=== PATIENT | male | born 1955 | race Caucasian/White ===

== ENCOUNTER 2016-08-18 00:45 | Emergency (ER) | payer BC ==
[~2016-08-18] VITALS: Ht 167.6 cm; Wt 77.0 kg
[~2016-08-18 00:45] MED LIST: ADAL1INJ IM; HYDR-3533 PO; METH750T2 PO
[2016-08-18 01:21] VITALS: BP 160/104; PULSE 80; RESP 18; TEMP 98.4; O2SAT 100
[2016-08-18] MEDS ORDERED: MILL5TAB PO (02:02)
[2016-08-18] MEDS ORDERED: ASAC800T PO (02:02)
[2016-08-18] MEDS ORDERED: HUMI40KI SQ (02:02)
[2016-08-18] MEDS ORDERED: ZYRT10CA PO (02:02)
[2016-08-18] MEDS ORDERED: BENA25TA3 PO (02:02)
[2016-08-18] MEDS ORDERED: LIDOCAINE 1%/EPINEPHrine 1:100,000 SOLN 20 ML VIAL INFIL ONE (02:15)
[2016-08-18] MEDS ORDERED: TETANUS/DIPHTHERIA TOXOID ADULT 0.5 ML VIAL IM ONE (02:15)
--- NOTE | 2016-08-18 02:41 | PD ---
HPI Chief Complaint: Fall Time Seen by Provider: 02:11 Travel History International Travel<30 days: No Contact w/Intl Traveler<30days: No Traveled to known affect area: No History of Present Illness HPI The patient is a [id number] male that fell at approximately 11 PM tonight in the shower and hit his head. He said he hit very hard and he was nauseated for a while after the injury. This was a lose balance and fall in the shower, not a syncopal spell. He did not lose consciousness. He sustained a laceration to the eyebrow. He denies any headache but may be slightly nauseated still. His last tetanus shot was over 10 years ago. PFSH Past Medical History Hx Anticoagulant Therapy: No Gastrointestinal Disorders: Yes (ULCERATIVE COLITIS) Tetanus Vaccination: > 5 Years Past Surgical History Cholecystectomy: Yes Social History Alcohol Use: No Tobacco Use: No Substance Use: No Allergies-Medications (Allergen,Severity, Reaction): Coded Allergies: Nonsteroidal Anti-Inflammatory Agts (Verified Allergy, Severe, Diarrhea, ) Sulfa (Verified Allergy, Severe, Diarrhea, 08/18/16) Uncoded Allergies: ANTIBIOTICS (Allergy, Severe, 10/12/15) Reported Meds & Prescriptions Reported Meds & Active Scripts Active Reported Zyrtec Allergy (Cetirizine HCl) 10 Mg Cap 10 Mg PO DAILY Benadryl Allergy (Diphenhydramine HCl) 25 Mg Tab 25 Mg PO Q6H PRN Millipred (Prednisolone) 5 Mg Tab 10 Mg PO DAILY Humira 2-Pack Inj (Adalimumab 2-Pack Inj) 40 Mg/0.8 Ml Syr 40 Mg SQ Q7D Asacol HD (Mesalamine) 800 Mg Tab 800 Mg PO QID Swallow whole. Take on an empty stomach. Review of Systems Except as stated in HPI: all other systems reviewed are Neg Physical Exam Narrative GENERAL: Well-nourished, well-developed patient in slight apparent distress with his left eyebrow laceration. His vital signs show blood pressure 160/104 but otherwise normal. SKIN: Focused skin assessment warm/dry. There is a 2 cm laceration over the left eyebrow that needs repair. HEAD: Normocephalic. EYES: No scleral icterus. No injection or drainage. NECK: Supple, trachea midline. No JVD or lymphadenopathy. CARDIOVASCULAR: Regular rate and rhythm without murmurs, gallops, or rubs. RESPIRATORY: Breath sounds equal bilaterally. No accessory muscle use. GASTROINTESTINAL: Abdomen soft, non-tender, nondistended. MUSCULOSKELETAL: No cyanosis, or edema. BACK: Nontender without obvious deformity. No CVA tenderness. Data Data Last Documented VS Vital Signs Date Time Temp Pulse Resp B/P Pulse Ox O2 Delivery O2 Flow Rate FiO2 08/18/16 01:37 Room Air 08/18/16 01:21 98.4 80 18 160/104 100 Orders Tetanus/Diphtheria Tox Adult (Tetanus/Di (08/18/16 02:15) Lidocai-Epi 1%-1:100,000 Inj (Xylocaine- (08/18/16 02:15) Ct Brain W/O Iv Contrast(Rout) (08/18/16 02:41) MDM Medical Decision Making Medical Screen Exam Complete: Yes Emergency Medical Condition: Yes Medical Record Reviewed: Yes Interpretation(s) The CT brain shows no acute change. Differential Diagnosis Skull fracture, intracranial bleedunlikely, left eyebrow laceration needing repair, left eyebrow laceration not needing repair Narrative Course The patient was given the advantages/disadvantages of suturing this laceration. He elected to have it sutured. Procedures Procedure Narrative The laceration was cleaned with Betadine and lidocaine infiltrated in the wound. Under sterile technique, the laceration was sutured with 7 stitches of 5 -0 nylon. The patient tolerated this procedure well. He did not require any deep stitches. EKG Prior to Arrival: No EKG Not Completed: EKG Not Medically Necessary Diagnosis Primary Impression: Laceration of left eyebrow Additional Instructions: Increasing headache, nausea and vomiting should prompt a return reevaluation in the emergency department. Sutures, next Monday. They also can be taken out on Monday. Disposition: DISCHARGE HOME Condition: Stable Grady Vo MD Aug 18, 2016 02:41
--- NOTE | 2016-08-18 03:13 | RADHPO ---
EXAM DATE/TIME: 08/18/2016 02:45 [facility] COMPARISON: No previous studies available for comparison. INDICATIONS : Trauma, fall. RADIATION DOSE: 64.48 CTDIvol (mGy) MEDICAL HISTORY : None SURGICAL HISTORY : None. ENCOUNTER: Initial ACUITY: 1 day PAIN SCALE: 4/10 LOCATION: cranial TECHNIQUE: Multiple contiguous axial images were obtained of the head. Using automated exposure control and adj ustment of the mA and/or kV according to patient size, radiation dose was kept as low as reasonably a chievable to obtain optimal diagnostic quality images. FINDINGS: CEREBRUM: The ventricles are normal for age. No evidence of midline shift, mass lesion, hemorrhage or acute in farction. No extra-axial fluid collections are seen. POSTERIOR FOSSA: The cerebellum and brainstem are intact. The 4th ventricle is midline. The cerebellopontine angle i s unremarkable. EXTRACRANIAL: The visualized portion of the orbits is intact. SKULL: The calvaria is intact. No evidence of skull fracture. CONCLUSION: Normal examination. Arsalan Quijano MD on August 18, 2016 at 3:10 Board Certified Radiologist. This report was verified electronically.
[2016-08-18 03:35] VITALS: BP 160/86
== END 2016-08-18 03:36 | disposition home or self-care (01) ==
LOC: PHED 00:45
DX: S01.112A Laceration without foreign body of left eyelid and periocular area, initial encounter (principal); W18.2XXA Fall in (into) shower or empty bathtub, initial encounter; Y93.E1 Activity, personal bathing and showering; Z23 Encounter for immunization
CPT/HCPCS: 12011; 70450; 90471; 90714

== ENCOUNTER 2016-10-04 00:44 | Inpatient (IN) | payer BC ==
[~2016-10-04] VITALS: Ht 167.6 cm; Wt 74.4 kg
[2016-10-04] VITALS (13 sets, daily range): BP systolic 117–185; BP diastolic 74–99; PULSE 67–117; RESP 12–24; TEMP 97.4–98.6; O2SAT 9–100
[~2016-10-04 00:44] MED LIST changes: -ADAL1INJ IM; +ASAC800T PO; +BENA25TA3 PO; +HUMI40KI SQ; -HYDR-3533 PO; -METH750T2 PO; +MILL5TAB PO; +ZYRT10CA PO
[2016-10-04] MEDS ORDERED: SODIUM CHLORIDE 0.9% FLUSH 10 ML FLUSH IV FLUSH PRN ×2 (01:30→05:15)
[2016-10-04 01:43] LABS: AUTOMATED NEUTROPHIL # 4.8 TH/MM3 (1.8-7.7); BASOPHIL # 0.3 TH/MM3 (0-0.2); BASOPHIL % 4.3 % (0.0-2.0); EOSINOPHIL # 0.1 TH/MM3 (0-0.4); EOSINOPHIL % 0.8 % (0.0-4.0); HEMATOCRIT 43.5 % (39.0-51.0); HEMO FLAGS DIFF FINAL; LYMPH % 19.2 % (9.0-44.0); LYMPHOCYTE # 1.3 TH/MM3 (1.0-4.8); MEAN CELL VOLUME 91.9 FL (80.0-100.0); MEAN CORPUSCULAR HEMOGLOBIN 30.5 PG (27.0-34.0); MEAN CORPUSCULAR HGB CONC 33.2 % (32.0-36.0); NEUT % 71.7 % (16.0-70.0); PLATELET COUNT 245 TH/MM3 (150-450); RED BLOOD COUNT 4.73 MIL/MM3 (4.50-5.90); RED CELL DISTRIBUTION WIDTH 12.3 % (11.6-17.2); WHITE BLOOD COUNT 6.8 TH/MM3 (4.0-11.0)
[2016-10-04 01:54] LABS: APTT (PATIENT) 29.5 SEC (24.3-30.1); PROTHROMBIN TIME - PATIENT 11.6 SEC (9.8-11.6)
[2016-10-04] MEDS ORDERED: MORPHINE SULFATE 8 MG/ML INJ IV PUSH ONE ×2 (02:00→03:45)
[2016-10-04] MEDS ORDERED: ONDANSETRON HCL 4 MG/2 ML VIAL IV PUSH ONE (02:00)
[2016-10-04] MEDS ORDERED: SODIUM CHLOR 0.9% 1000 ML INJ 1,000 ML IV ONE (02:00)
--- NOTE | 2016-10-04 02:09 | PD ---
HPI Chief Complaint: Abdominal Pain Time Seen by Provider: 01:43 Travel History International Travel<30 days: No Contact w/Intl Traveler<30days: No Traveled to known affect area: No History of Present Illness HPI Patient is a 61-year-old male with a history of ulcerative colitis presents with abdominal cramping for the past 2-3 days. Patient states that he took some pain medicine at home as well as steroids he had at home from her prior ulcerative colitis flare which did not help. Patient states that he usually has electrolyte abnormalities when he has a Crohn's flare. He states often the ends up being admitted. Patient states that he is normally out of state for his care and has not followed up with a commissary helper in this state since moving here. He denies any fever or any blood in the stool or blood in the emesis. Symptoms are moderate and gradually worsening. PFSH Past Medical History Hx Anticoagulant Therapy: No Diminished Hearing: No Gastrointestinal Disorders: Yes (ULCERATIVE COLITIS) Past Surgical History Cholecystectomy: Yes Social History Alcohol Use: No Tobacco Use: No Substance Use: No Allergies-Medications (Allergen,Severity, Reaction): Coded Allergies: Nonsteroidal Anti-Inflammatory Agts (Verified Allergy, Severe, Diarrhea, ) Sulfa (Verified Allergy, Severe, Diarrhea, 08/18/16) Uncoded Allergies: ANTIBIOTICS (Allergy, Severe, 10/04/16) MAKES ULCERATIVE COLITIS FLARE UP Reported Meds & Prescriptions Reported Meds & Active Scripts Active Reported Zyrtec Allergy (Cetirizine HCl) 10 Mg Cap 10 Mg PO DAILY Benadryl Allergy (Diphenhydramine HCl) 25 Mg Tab 25 Mg PO Q6H PRN Millipred (Prednisolone) 5 Mg Tab 10 Mg PO DAILY Humira 2-Pack Inj (Adalimumab 2-Pack Inj) 40 Mg/0.8 Ml Syr 40 Mg SQ Q7D Asacol HD (Mesalamine) 800 Mg Tab 800 Mg PO QID Swallow whole. Take on an empty stomach. Review of Systems Except as stated in HPI: all other systems reviewed are Neg Physical Exam Narrative GENERAL: Well-developed well-nourished appears slightly uncomfortable. SKIN: Focused skin assessment warm/dry. HEAD: Atraumatic. Normocephalic. EYES: Pupils equal and round. No scleral icterus. No injection or drainage. ENT: No nasal bleeding or discharge. Mucous membranes pink and moist. NECK: Trachea midline. No JVD. CARDIOVASCULAR: Regular rate and rhythm. No murmur appreciated. RESPIRATORY: No accessory muscle use. Clear to auscultation. Breath sounds equal bilaterally. GASTROINTESTINAL: Abdomen soft, minimally tender diffusely, nondistended. Hepatic and splenic margins not palpable. No rebound no percussive tenderness. Heel tap sign negative. MUSCULOSKELETAL: No obvious deformities. No clubbing. No cyanosis. No edema. NEUROLOGICAL: Awake and alert. No obvious cranial nerve deficits. Motor grossly within normal limits. Normal speech. PSYCHIATRIC: Appropriate mood and affect; insight and judgment normal. Data Data Last Documented VS Vital Signs Date Time Temp Pulse Resp B/P Pulse Ox O2 Delivery O2 Flow Rate FiO2 10/04/16 04:44 98.1 117 24 182/96 99 Orders Complete Blood Count With Diff (10/04/16 01:18) Comprehensive Metabolic Panel (10/04/16 01:18) Lipase (10/04/16 01:18) Prothrombin Time / Inr (Pt) (10/04/16 01:18) Act Partial Throm Time (Ptt) (10/04/16 01:18) Urinalysis - C+S If Indicated (10/04/16 01:18) Iv Access Insert/Monitor (10/04/16 01:18) Ecg Monitoring (10/04/16 01:18) Oximetry (10/04/16 01:18) Sodium Chloride 0.9% Flush (Ns Flush) (10/04/16 01:30) Electrocardiogram (10/04/16 01:18) Troponin I (10/04/16 01:18) Morphine Inj (Morphine Inj) (10/04/16 02:00) Ondansetron Inj (Zofran Inj) (10/04/16 02:00) Sodium Chlor 0.9% 1000 Ml Inj (Ns 1000 M (10/04/16 02:00) Ct Abd/Pel W Iv Contrast(Rout) (10/04/16 ) Morphine Inj (Morphine Inj) (10/04/16 03:45) Iohexol 350 Inj (Omnipaque 350 Inj) (10/04/16 04:18) Admit Order (Ed Use Only) (10/04/16 ) Labs Laboratory Tests Test 10/04/16 10/04/16 01:35 03:15 White Blood Count 6.8 TH/MM3 Red Blood Count 4.73 MIL/MM3 Hemoglobin 14.4 GM/DL Hematocrit 43.5 % Mean Corpuscular Volume 91.9 FL Mean Corpuscular Hemoglobin 30.5 PG Mean Corpuscular Hemoglobin 33.2 % Concent Red Cell Distribution Width 12.3 % Platelet Count 245 TH/MM3 Mean Platelet Volume 7.3 FL Neutrophils (%) (Auto) 71.7 % Lymphocytes (%) (Auto) 19.2 % Monocytes (%) (Auto) 4.0 % Eosinophils (%) (Auto) 0.8 % Basophils (%) (Auto) 4.3 % Neutrophils # (Auto) 4.8 TH/MM3 Lymphocytes # (Auto) 1.3 TH/MM3 Monocytes # (Auto) 0.3 TH/MM3 Eosinophils # (Auto) 0.1 TH/MM3 Basophils # (Auto) 0.3 TH/MM3 CBC Comment DIFF FINAL Differential Comment Prothrombin Time 11.6 SEC Prothromb Time International 1.0 RATIO Ratio Activated Partial 29.5 SEC Thromboplast Time Sodium Level 123 MEQ/L Potassium Level 3.2 MEQ/L Chloride Level 89 MEQ/L Carbon Dioxide Level 19.9 MEQ/L Anion Gap 14 MEQ/L Blood Urea Nitrogen 4 MG/DL Creatinine 0.69 MG/DL Estimat Glomerular Filtration 117 ML/MIN Rate Random Glucose 118 MG/DL Calcium Level 9.1 MG/DL Total Bilirubin 1.1 MG/DL Aspartate Amino Transf 38 U/L (AST/SGOT) Alanine Aminotransferase 43 U/L (ALT/SGPT) Alkaline Phosphatase 50 U/L Troponin I LESS THAN 0.02 NG/ML Total Protein 8.1 GM/DL Albumin 4.1 GM/DL Lipase 147 U/L Urine Color STRAW Urine Turbidity CLEAR Urine pH 6.5 Urine Specific [place] 1.003 Urine Protein NEG mg/dL Urine Glucose (UA) NEG mg/dL Urine Ketones 15 mg/dL Urine Occult Blood TRACE Urine Nitrite NEG Urine Bilirubin NEG Urine Leukocyte Esterase NEG Urine Squamous Epithelial 0-5 /hpf Cells Microscopic Urinalysis Comment CULT NOT INDICATED MDM Medical Decision Making Medical Screen Exam Complete: Yes Emergency Medical Condition: Yes Interpretation(s) EKG shows normal sinus rhythm with a normal axis and normal R-wave progression. Intervals within normal limits. No concerning ST T changes. This normal EKG. Differential Diagnosis Crohn's flare, urinary retention, urinary tract infection, abdominal pain, bowel perforation, electro-light abnormality. Narrative Course Patient was roomed in emergency department, he was given a total of 2 doses of morphine 6 mg each which somewhat relieved his pain. He was happily chatting with his friend in the room. His workup was notable for hyponatremia with a sodium of 123. Mild hypokalemia to 3.2. Platelets count was normal. A CAT scan was pursued and showed: Last 24 hours Impressions Abdomen/Pelvis CT 10/04/16 0000 Signed Impressions: Service Date/Time: Tuesday, October 04, 2016 03:57 - CONCLUSION: 1. Status post cholecystectomy. 2. Mild hepatic steatosis. 3. Small cystic structure in the body of the pancreas which is nonspecific but likely benign. Short-term CT followup is recommended beginning in 3 months. 4. Urinary bladder is mildly distended. 5. Small hiatal hernia. 6. Nonobstructive bowel gas pattern with no inflammatory change. Ramon Dotson MD Shortly after reviewing this CAT scan a recommended the patient that we drain his bladder is may make him feel better. He was able to go to the bathroom and diarrhea stopped 1400 cc of urine after this. He was given some Bentyl as he stated he was still having some cramping. Discussed electro-lead abnormalities with the patient recommended for admission. He is agreeable. Patient was discussed with Dr. Marmolejo who will place an admission order. Diagnosis Primary Impression: Hyponatremia Additional Impressions: Intractable abdominal pain Ulcerative colitis Qualified Code: K51.919 - Ulcerative colitis with complication, unspecified location Admitting Information Admitting Physician Requests: Admit Condition: Stable Andre Chao MD October 04, 2016 02:09
[2016-10-04 02:12] LABS: ALKALINE PHOSPHATASE 50 U/L (45-117); ALT (GPT) 43 U/L (12-78); ANION GAP 14 MEQ/L (5-15); AST (GOT) 38 U/L (15-37); BICARBONATE 19.9 MEQ/L (21.0-32.0); BLOOD UREA NITROGEN 4 MG/DL (7-18); CHLORIDE 89 MEQ/L (98-107); GLOMERULAR FILTRATION RATE 117 ML/MIN (>89); POTASSIUM 3.2 MEQ/L (3.5-5.1); TOTAL BILIRUBIN ADULT 1.1 MG/DL (0.2-1.0)
[2016-10-04 02:13] LABS: SODIUM (NA) 123 MEQ/L (136-145)
[2016-10-04 03:37] LABS: BLOOD, URINE TRACE (NEG); GLUCOSE,URINE NEG (NEG); KETONE, URINE 15 mg/dL (NEG); NITRITE,URINE NEG (NEG); PH, URINE 6.5 (5.0-8.5)
[2016-10-04 03:57] LABS: URINE COLOR STRAW (YELLW/STRAW)
[2016-10-04 04:00] LABS: COMMENT (UR) CULT NOT INDICATED; CULTURE IF INDICATED CULT NOT INDICATED; SQUAMOUS EPITHELIAL CELL URINE 0-5 /hpf (0-5)
[2016-10-04] MEDS ORDERED: IOHEXOL 350 MG/ML 10 ML VIAL (for RAD DIAG) IV ONE (04:18)
--- NOTE | 2016-10-04 04:37 | RADHPO ---
EXAM DATE/TIME: 10/04/2016 03:57 [facility] COMPARISON: No previous studies available for comparison. INDICATIONS : Left upper abdomen and flank pain. IV CONTRAST: 100 cc Omnipaque 350 (iohexol) IV ORAL CONTRAST: No oral contrast ingested. RADIATION DOSE: 11.14 CTDIvol (mGy) MEDICAL HISTORY : Ulcerative colitis. SURGICAL HISTORY : Cholecystectomy. ENCOUNTER: Initial ACUITY: 1 week PAIN SCALE: 8/10 LOCATION: Left upper quadrant flank TECHNIQUE: Volumetric scanning of the abdomen and pelvis was performed. Using automated exposure control and ad justment of the mA and/or kV according to patient size, radiation dose was kept as low as reasonably achievable to obtain optimal diagnostic quality images. FINDINGS: LOWER LUNGS: The visualized lower lungs are clear. LIVER: Homogeneous density without lesion. There is mild hepatic steatosis. There is no dilation of the bili [place]. Status post cholecystectomy. SPLEEN: Normal size without lesion. PANCREAS: Normal in size and shape except for a small cystic structure in the body of the pancreas measuring 10 x 11 mm. There is no pancreatic ductal dilatation or inflammatory change. KIDNEYS: Normal in size and shape. There is no mass, stone or hydronephrosis. ADRENAL GLANDS: Within normal limits. VASCULAR: There is no aortic aneurysm. BOWEL/MESENTERY: There is a small hiatal hernia. The stomach, small bowel, and colon demonstrate no acute abnormality. There is no free intraperitoneal air or fluid. ABDOMINAL WALL: Within normal limits. RETROPERITONEUM: There is no lymphadenopathy. BLADDER: No wall thickening or mass. Mildly distended. REPRODUCTIVE: Within normal limits. INGUINAL: There is no lymphadenopathy or hernia. MUSCULOSKELETAL: Within normal limits for patient age. CONCLUSION: 1. Status post cholecystectomy. 2. Mild hepatic steatosis. 3. Small cystic structure in the body of the pancreas which is nonspecific but likely benign. Short-t erm CT followup is recommended beginning in 3 months. 4. Urinary bladder is mildly distended. 5. Small hiatal hernia. 6. Nonobstructive bowel gas pattern with no inflammatory change. Ramon Dotson MD on October 04, 2016 at 4:32 Board Certified Radiologist. This report was verified electronically.
[2016-10-04] MEDS ORDERED: DICYCLOMINE HCL 20 MG/2 ML VIAL IM ONE (05:15)
[2016-10-04] MEDS ORDERED: NALOXONE HCL 0.4 MG/ML AMP IV PRN (05:15)
[2016-10-04] MEDS: POTASSIUM CHLOR 20 MEQ PREMIX 100 ML IV SCH ×2 (05:42→08:21)
[2016-10-04] MEDS: SODIUM CHLOR 0.9% 1000 ML INJ 1,000 ML IV SCH ×2 (05:42→15:15)
[2016-10-04] MEDS: SODIUM CHLORIDE 0.9% FLUSH 10 ML FLUSH IV FLUSH SCH ×2 (08:21→21:18)
--- NOTE | 2016-10-04 11:18 | HHI.HP ---
[facility] Kyra Gardner MD Admission Diagnosis Hyponatremia, Crohn's flare. Diagnoses: Chief Complaint: Abdominal pain Travel History International Travel<30 Days: No Contact w/Intl Traveler <30 Da: No Traveled to Known Affected Are: No History of Present Illness 61-year-old male with a medical history significant for ulcerative colitis presents with complaint of abdominal cramps for the past 2-3 days. Pain is mostly located on the left lower quadrant. He described a cramping pain and has been experiencing associated diarrhea. Some nausea but no vomiting. Patient reports this is typical for his ulcerative colitis flareup which he reports is usually treated with steroid and replacement of his electrolytes. He denies any fevers or chills. 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 He reports that he gets a flare about twice a year. He is chronically on Humira and Asacol. Currently reports that his symptoms are improving. He received Bentyl in the ED. initial labs showed multiple electrolyte abnormalities including hyponatremia and hypokalemia. Patient reports he had a GI bug about a week ago which she believes started his current flareup. Review of Systems Constitutional: DENIES: Fever, Weight gain, Weight loss, Chills Cardiovascular: DENIES: Chest pain Gastrointestinal: COMPLAINS OF: Abdominal pain, Diarrhea, Nausea, DENIES: Black stools, Bloody stools, Vomiting Except as stated in HPI: all other systems reviewed are Neg Past Family Social History Past Medical History Ulcerative colitis Seasonal allergies Past Surgical History Cholecystectomy Reported Medications Reported Meds & Active Scripts Active Reported Zyrtec Allergy (Cetirizine HCl) 10 Mg Cap 10 Mg PO DAILY Benadryl Allergy (Diphenhydramine HCl) 25 Mg Tab 25 Mg PO Q6H PRN Millipred (Prednisolone) 5 Mg Tab 10 Mg PO DAILY Humira 2-Pack Inj (Adalimumab 2-Pack Inj) 40 Mg/0.8 Ml Syr 40 Mg SQ Q7D Asacol HD (Mesalamine) 800 Mg Tab 800 Mg PO QID Swallow whole. Take on an empty stomach. Allergies: Coded Allergies: Nonsteroidal Anti-Inflammatory Agts (Verified Allergy, Severe, Diarrhea, ) Sulfa (Verified Allergy, Severe, Diarrhea, 08/18/16) Uncoded Allergies: ANTIBIOTICS (Allergy, Severe, 10/04/16) MAKES ULCERATIVE COLITIS FLARE UP Family History Father with history of emphysema and heart disease Mother from complications of cervical cancer Social History Patient denies tobacco, alcohol, or illicit drug use. Physical Exam Vital Signs Vital Signs Date Time Temp Pulse Resp B/P Pulse Ox O2 Delivery O2 Flow Rate FiO2 10/04/16 08:22 18 10/04/16 06:30 98.6 98 18 155/99 97 10/04/16 06:19 98 20 179/77 97 10/04/16 04:44 98.1 117 24 182/96 99 10/04/16 03:00 105 20 181/94 98 10/04/16 02:48 92 20 185/91 97 10/04/16 02:25 0 10/04/16 02:00 102 22 181/84 97 10/04/16 00:51 97.7 108 12 166/98 100 10/04/16 00:45 97.7 108 20 166/98 97 Physical Exam GENERAL: This is a well-nourished, well-developed patient, in no apparent distress. SKIN: No rashes, ecchymoses or lesions. Cool and dry. HEAD: Atraumatic. Normocephalic. No temporal or scalp tenderness. EYES: Pupils equal round and reactive. Extraocular motions intact. No scleral icterus. No injection or drainage. ENT: Nose without bleeding, purulent drainage or septal hematoma. Throat without erythema, tonsillar hypertrophy or exudate. Uvula midline. Airway patent. NECK: Trachea midline. No JVD or lymphadenopathy. Supple, nontender, no meningeal signs. CARDIOVASCULAR: Regular rate and rhythm without murmurs, gallops, or rubs. RESPIRATORY: Clear to auscultation. Breath sounds equal bilaterally. No wheezes , rales, or rhonchi. GASTROINTESTINAL: Abdomen soft, nondistended. Mild tenderness to deep palpation over the left lower quadrant. No guarding. MUSCULOSKELETAL: Extremities without clubbing, cyanosis, or edema. No joint tenderness, effusion, or edema noted. No calf tenderness. Negative Homans sign bilaterally. NEUROLOGICAL: Awake and alert. Cranial nerves II through XII intact. Motor and sensory grossly within normal limits. Five out of 5 muscle strength in all muscle groups. Normal speech. Laboratory Laboratory Tests Test 10/04/16 10/04/16 01:35 03:15 White Blood Count 6.8 Red Blood Count 4.73 Hemoglobin 14.4 Hematocrit 43.5 Mean Corpuscular Volume 91.9 Mean Corpuscular Hemoglobin 30.5 Mean Corpuscular Hemoglobin 33.2 Concent Red Cell Distribution Width 12.3 Platelet Count 245 Mean Platelet Volume 7.3 Neutrophils (%) (Auto) 71.7 Lymphocytes (%) (Auto) 19.2 Monocytes (%) (Auto) 4.0 Eosinophils (%) (Auto) 0.8 Basophils (%) (Auto) 4.3 Neutrophils # (Auto) 4.8 Lymphocytes # (Auto) 1.3 Monocytes # (Auto) 0.3 Eosinophils # (Auto) 0.1 Basophils # (Auto) 0.3 CBC Comment DIFF FINAL Differential Comment Prothrombin Time 11.6 Prothromb Time International 1.0 Ratio Activated Partial 29.5 Thromboplast Time Sodium Level 123 Potassium Level 3.2 Chloride Level 89 Carbon Dioxide Level 19.9 Anion Gap 14 Blood Urea Nitrogen 4 Creatinine 0.69 Estimat Glomerular Filtration 117 Rate Random Glucose 118 Calcium Level 9.1 Total Bilirubin 1.1 Aspartate Amino Transf 38 (AST/SGOT) Alanine Aminotransferase 43 (ALT/SGPT) Alkaline Phosphatase 50 Troponin I LESS THAN 0.02 Total Protein 8.1 Albumin 4.1 Lipase 147 Urine Color STRAW Urine Turbidity CLEAR Urine pH 6.5 Urine Specific [place] 1.003 Urine Protein NEG Urine Glucose (UA) NEG Urine Ketones 15 Urine Occult Blood TRACE Urine Nitrite NEG Urine Bilirubin NEG Urine Leukocyte Esterase NEG Urine Squamous Epithelial 0-5 Cells Microscopic Urinalysis Comment CULT NOT INDICATED Result Diagram: 10/04/16 0135 10/04/16 0135 Imaging Last Impressions Abdomen/Pelvis CT 10/04/16 0000 Signed Impressions: Service Date/Time: Tuesday, October 04, 2016 03:57 - CONCLUSION: 1. Status post cholecystectomy. 2. Mild hepatic steatosis. 3. Small cystic structure in the body of the pancreas which is nonspecific but likely benign. Short-term CT followup is recommended beginning in 3 months. 4. Urinary bladder is mildly distended. 5. Small hiatal hernia. 6. Nonobstructive bowel gas pattern with no inflammatory change. Ramon Dotson MD Assessment and Plan Problem List: (1) Ulcerative colitis ICD Code: K51.90 Status: Acute Plan: No overt inflammatory process on abdominal CT. However patient notes his symptoms are very typical of his ulcerative colitis flare. He states he usually responds very quickly to IV Solu-Medrol and a prednisone taper. - We'll continue Asacol Start Solu-Medrol IV 20 mg every 8 hours. - I expect rapid improvement. If he is not improving quickly, will consult GI. Clear liquid diet (2) Hyponatremia ICD Code: E87.1 Status: Acute Plan: Hypovolemic hyponatremia secondary to fluid loss from diarrhea. Continue IV fluid Follow labs (3) Intractable abdominal pain ICD Code: R10.9 Status: Acute Plan: Pain control Bentyl as needed Physician Certification 2 Midnight Certification Type: Admission for Inpatient Services Order for Inpatient Services The services are ordered in accordance with Medicare regulations or non- Medicare payer requirements, as applicable. In the case of services not specified as inpatient-only, they are appropriately provided as inpatient services in accordance with the 2-midnight benchmark. Estimated LOS (days): 3 days is the estimated time the patient will need to remain in the hospital, assuming treatment plan goals are met and no additional complications. Post-Hospital Plan: Home Problem Qualifiers (1) Ulcerative colitis: Qualified Code: K51.919 - Ulcerative colitis with complication, unspecified location Xavier Squires MD October 04, 2016 11:18
[2016-10-04 11:28] LABS: BICARBONATE 21.8 MEQ/L (21.0-32.0); POTASSIUM 4.4 MEQ/L (3.5-5.1)
[2016-10-04] MEDS ORDERED: MORPHINE SULFATE 4 MG/ML INJ IV PUSH PRN (11:30)
[2016-10-04] MEDS: methylPREDNISolone SOD SUCC 40 MG/1 ML VIAL IV PUSH SCH ×2 (12:00→19:46)
[2016-10-04] MEDS: PANTOPRAZOLE SODIUM 40 MG VIAL IV PUSH SCH (12:00)
[2016-10-04] MEDS: ACETAMINOPHEN/HYDROcodone 325 MG/5 MG TAB PO PRN ×3 (12:03→21:26)
--- NOTE | 2016-10-04 13:40 | EKG ---
Date Performed: 10/04/2016 Time Performed: 02:17:24 PTAGE: 61 years EKG: Sinus rhythm rSr'(V1) - probable normal variant Normal ECG No prior tracing DOCTOR: Lenard Murphy Interpretating Date/Time 10/04/2016 13:39:23
[2016-10-04] MEDS: DICYCLOMINE HCL 20 MG TAB PO SCH ×2 (14:12→17:11)
[2016-10-04] MEDS: CETIRIZINE HCL 10 MG TAB PO SCH (14:12)
[2016-10-04] MEDS: MESALAMINE HD 800 MG DELAYED RELEASE TAB PO SCH ×3 (14:51→21:18)
[2016-10-05] VITALS: BP 134/74; PULSE 86; RESP 18; TEMP 96.6; O2SAT 96
[2016-10-05] MEDS: SODIUM CHLOR 0.9% 1000 ML INJ 1,000 ML IV SCH ×3 (01:26→22:56)
[2016-10-05 04:00] VITALS: BP 111/66; PULSE 80; RESP 18; TEMP 96.6; O2SAT 95
[2016-10-05] MEDS: methylPREDNISolone SOD SUCC 40 MG/1 ML VIAL IV PUSH SCH ×3 (05:13→21:12)
[2016-10-05 06:47] LABS: AUTOMATED NEUTROPHIL # 12.2 TH/MM3 (1.8-7.7); BASOPHIL # 0.1 TH/MM3 (0-0.2); HEMATOCRIT 38.4 % (39.0-51.0); LYMPH % 10.9 % (9.0-44.0); LYMPHOCYTE # 1.6 TH/MM3 (1.0-4.8); MEAN CELL VOLUME 93.2 FL (80.0-100.0); MEAN CORPUSCULAR HGB CONC 34.3 % (32.0-36.0); MONO % 4.4 % (0.0-8.0); NEUT % 83.7 % (16.0-70.0); PLATELET COUNT 111 TH/MM3 (150-450); RED BLOOD COUNT 4.11 MIL/MM3 (4.50-5.90); RED CELL DISTRIBUTION WIDTH 12.3 % (11.6-17.2); WHITE BLOOD COUNT 14.5 TH/MM3 (4.0-11.0)
[2016-10-05 06:56] LABS: POTASSIUM 3.7 MEQ/L (3.5-5.1)
[2016-10-05 07:01] LABS: HEMO FLAGS AUTO DIFF
[2016-10-05 07:46] LABS: PLATELET ESTIMATE SMEAR LOW (NORMAL); PLATELET MORPHOLOGY NORMAL (NORMAL); SCAN/DIFF AUTO DIFF CONFIRMED
[2016-10-05 08:51] VITALS: BP 115/67; PULSE 67; RESP 18; TEMP 97.3; O2SAT 95
[2016-10-05] MEDS ORDERED: CETIRIZINE HCL 10 MG TAB PO SCH (09:00)
[2016-10-05] MEDS: SODIUM CHLORIDE 0.9% FLUSH 10 ML FLUSH IV FLUSH SCH ×2 (09:02→21:14)
[2016-10-05] MEDS: MESALAMINE HD 800 MG DELAYED RELEASE TAB PO SCH ×4 (09:02→21:14)
[2016-10-05] MEDS: CETIRIZINE HCL 10 MG TAB PO SCH (09:02)
[2016-10-05] MEDS: DICYCLOMINE HCL 20 MG TAB PO SCH ×3 (09:03→17:40)
--- NOTE | 2016-10-05 11:04 | HHI.PR ---
Subjective Remarks Patient reports she is slightly improved today. Still having some abdominal cramps on the left lower quadrant of the abdomen. No nausea or vomiting. No diarrhea. He reports he previously saw Dr. Mayo for GI. Objective Vitals Vital Signs Date Time Temp Pulse Resp B/P Pulse Ox O2 Delivery O2 Flow Rate FiO2 10/05/16 08:51 97.3 67 18 115/67 95 10/05/16 04:00 96.6 80 18 111/66 95 10/05/16 00:00 96.6 86 18 134/74 96 10/04/16 20:15 95 10/04/16 20:10 95 10/04/16 20:00 97.6 85 18 117/74 97 10/04/16 18:17 18 10/04/16 16:00 97.4 67 18 141/82 96 10/04/16 12:00 98.6 84 18 135/85 97 I/O 10/04/16 10/04/16 10/04/16 10/05/16 10/05/16 10/05/16 07:00 15:00 23:00 07:00 15:00 23:00 Intake Total 1000 ml 600 ml 725 ml 605 ml Output Total 2350 ml 1500 ml 400 ml 1200 ml Balance -1350 ml -900 ml 325 ml -595 ml Intake Oral 600 ml 725 ml 480 ml IV Total 1000 ml 125 ml Output Urine Total 2350 ml 1500 ml 400 ml 1200 ml # Voids 7 3 Result Diagram: 10/05/16 0545 10/05/16 0545 Imaging Last Impressions Abdomen/Pelvis CT 10/04/16 0000 Signed Impressions: Service Date/Time: Tuesday, October 04, 2016 03:57 - CONCLUSION: 1. Status post cholecystectomy. 2. Mild hepatic steatosis. 3. Small cystic structure in the body of the pancreas which is nonspecific but likely benign. Short-term CT followup is recommended beginning in 3 months. 4. Urinary bladder is mildly distended. 5. Small hiatal hernia. 6. Nonobstructive bowel gas pattern with no inflammatory change. Ramon Dotson MD Objective Remarks GENERAL: This is a well-nourished, well-developed patient, in no apparent distress. CARDIOVASCULAR: Normal rate and regular rhythm without murmurs, gallops, or rubs. RESPIRATORY: Good respiratory efforts. Breath sounds equal and clear to auscultation bilaterally. GASTROINTESTINAL: Abdomen soft, non-distended. Tender to palpation over the left lower quadrant. Hyperactive bowel sounds MUSCULOSKELETAL: Extremities without cyanosis, or edema. NEURO: Alert & Oriented x4 to person, place, time, situation. Moves all ext x4 PSYCH: Appropriate mood and affect. A/P Problem List: (1) Ulcerative colitis ICD Code: K51.90 Status: Acute Plan: No overt inflammatory process on abdominal CT. However patient notes his symptoms are very typical of his ulcerative colitis flare. He states he usually responds very quickly to IV Solu-Medrol and a prednisone taper. - We'll continue Asacol Continue Solu-Medrol IV 20 mg every 8 hours. - Improving, will consult GI for further recommendations. Advance to full liquid diet as tolerated (2) Hyponatremia ICD Code: E87.1 Status: Acute Plan: Hypovolemic hyponatremia secondary to fluid loss from diarrhea. Resolved with IV fluid. Follow labs (3) Hypokalemia ICD Code: E87.6 Status: Acute Plan: Resolved after replacement. (4) Intractable abdominal pain ICD Code: R10.9 Status: Acute Plan: Pain control Bentyl as needed Discharge Planning Pending clinical improvement. Problem Qualifiers (1) Ulcerative colitis: Qualified Code: K51.919 - Ulcerative colitis with complication, unspecified location Xavier Squires MD October 05, 2016 11:04
[2016-10-05] MEDS: PANTOPRAZOLE SODIUM 40 MG VIAL IV PUSH SCH (12:22)
[2016-10-05 12:58] VITALS: BP 118/64; PULSE 69; RESP 18; TEMP 96.4; O2SAT 95
[2016-10-05 16:10] VITALS: BP 117/65; PULSE 68; RESP 18; TEMP 96.7; O2SAT 95
--- NOTE | 2016-10-05 19:26 | PD.CONS ---
HPI History of Present Illness This is a 61 year old male who presents to the emergency room with complaints of abdominal pain worsening over the past few days the pain is described as a bloating with distention of the mid abdomen with diarrhea but no mucus or blood no fever or chills he does report some nausea but no vomiting patient has been doing well for the past several years on Humira though the past couple of years he's had to use it more frequently and currently he is on the once a week dosing and in the past several months he's had 2 flares this is one of them and 1 back in January the patient tells me that he usually gets prednisone for his flares and he is quick to recover after that currently his feeling much better in bed less pain and less distention tolerating liquids PFSH Past Medical History Ulcerative colitis Seasonal allergies Past Surgical History Cholecystectomy Coded Allergies: Nonsteroidal Anti-Inflammatory Agts (Verified Allergy, Severe, Diarrhea, ) Sulfa (Verified Allergy, Severe, Diarrhea, 08/18/16) Uncoded Allergies: ANTIBIOTICS (Allergy, Severe, 10/04/16) MAKES ULCERATIVE COLITIS FLARE UP Medications Humira Asacol When necessary prednisone Family History Father with history of emphysema and heart disease Mother from complications of cervical cancer Social History Patient denies tobacco, alcohol, or illicit drug use. Review of Systems ROS Review of systems Patient denies any headache dizziness blurry vision, denies any chest pain shortness of breath cough fever chills, Denies any palpitations or fatigue denies any polyuria dysuria hematuria, denies any numbness tingling or weakness, denies any skin rash pruritus or jaundice, denies any easy bruising or bleeding tendency, denies any recent change in mood GI Exam Vitals I&O Vital Signs Date Time Temp Pulse Resp B/P Pulse Ox O2 Delivery O2 Flow Rate FiO2 10/05/16 16:10 96.7 68 18 117/65 95 10/05/16 12:58 96.4 69 18 118/64 95 10/05/16 08:51 97.3 67 18 115/67 95 10/05/16 04:00 96.6 80 18 111/66 95 10/05/16 00:00 96.6 86 18 134/74 96 10/04/16 20:15 95 10/04/16 20:10 95 10/04/16 20:00 97.6 85 18 117/74 97 I/O 10/04/16 10/04/16 10/04/16 10/05/16 10/05/16 10/05/16 07:00 15:00 23:00 07:00 15:00 23:00 Intake Total 1000 ml 600 ml 725 ml 605 ml 1712 ml Output Total 2350 ml 1500 ml 400 ml 1200 ml 2200 ml Balance -1350 ml -900 ml 325 ml -595 ml -488 ml Intake Oral 600 ml 725 ml 480 ml 1040 ml IV Total 1000 ml 125 ml 672 ml Output Urine Total 2350 ml 1500 ml 400 ml 1200 ml 2200 ml # Voids 7 3 Imaging Last 48 hours Impressions Abdomen/Pelvis CT 10/04/16 0000 Signed Impressions: Service Date/Time: Tuesday, October 04, 2016 03:57 - CONCLUSION: 1. Status post cholecystectomy. 2. Mild hepatic steatosis. 3. Small cystic structure in the body of the pancreas which is nonspecific but likely benign. Short-term CT followup is recommended beginning in 3 months. 4. Urinary bladder is mildly distended. 5. Small hiatal hernia. 6. Nonobstructive bowel gas pattern with no inflammatory change. Ramon Dotson MD Laboratory Test 10/05/16 05:45 White Blood Count 14.5 TH/MM3 Red Blood Count 4.11 MIL/MM3 Hemoglobin 13.1 GM/DL Hematocrit 38.4 % Mean Corpuscular Volume 93.2 FL Mean Corpuscular Hemoglobin 32.0 PG Mean Corpuscular Hemoglobin 34.3 % Concent Red Cell Distribution Width 12.3 % Platelet Count 111 TH/MM3 Mean Platelet Volume 8.9 FL Neutrophils (%) (Auto) 83.7 % Lymphocytes (%) (Auto) 10.9 % Monocytes (%) (Auto) 4.4 % Eosinophils (%) (Auto) 0.0 % Basophils (%) (Auto) 1.0 % Neutrophils # (Auto) 12.2 TH/MM3 Lymphocytes # (Auto) 1.6 TH/MM3 Monocytes # (Auto) 0.6 TH/MM3 Eosinophils # (Auto) 0.0 TH/MM3 Basophils # (Auto) 0.1 TH/MM3 CBC Comment AUTO DIFF Differential Comment AUTO DIFF CONFIRMED Platelet Estimate LOW Platelet Morphology Comment NORMAL Sodium Level 138 MEQ/L Potassium Level 3.7 MEQ/L Chloride Level 107 MEQ/L Carbon Dioxide Level 21.0 MEQ/L Anion Gap 10 MEQ/L Blood Urea Nitrogen 6 MG/DL Creatinine 0.48 MG/DL Estimat Glomerular Filtration 178 ML/MIN Rate Random Glucose 125 MG/DL Calcium Level 8.3 MG/DL Physical Examination HEENT: Pupils round and reactive to light; normocephalic; atraumatic; no jaundice. Throat is clear. NECK: Neck is supple, no JVD, no lymphadenopathy. CHEST: Chest is clear to auscultation and percussion. CARDIAC: Regular rate and rhythm with no murmur gallop or rubs. ABDOMEN: Soft, nondistended, nontender; no hepatosplenomegaly; bowel sounds are present in all four quadrants. EXTREMITIES: No clubbing, cyanosis, or edema. SKIN: Normal; no rash; no jaundice. VAMPER: No focal deficits; alert and oriented times three. Assessment and Plan Plan Patient presenting with abdominal pain abdominal distention and diarrhea with known history of ulcerative colitis CT of the abdomen is basically unremarkable for abnormalities of the colon I do agree with current supportive care On discharge it would be best to place the patient on Uceris 9 mg daily in the meanwhile continue with IV steroids We will advance diet to a low residue diet Anticipate discharge in the next 1-2 days if he is able to tolerate his diet Patient will require further follow-up as an outpatient we shall consider colonoscopy and possibly even testing for Humira level and possibly antibodies Further recommendations shall depend on his hospital course Melquiades Gomez MD October 05, 2016 19:26
[2016-10-05 20:00] VITALS: BP 118/72; PULSE 69; RESP 16; TEMP 97.5; O2SAT 97
[2016-10-05] MEDS: ACETAMINOPHEN 325 MG TAB PO PRN (22:57)
[2016-10-06] VITALS: BP 108/65; PULSE 57; RESP 18; TEMP 98.1; O2SAT 97
[2016-10-06] MEDS: methylPREDNISolone SOD SUCC 40 MG/1 ML VIAL IV PUSH SCH ×2 (04:33→13:00)
[2016-10-06] MEDS: ACETAMINOPHEN 325 MG TAB PO PRN (04:36)
[2016-10-06 07:38] LABS: HEMATOCRIT 37.3 % (39.0-51.0); MEAN CELL VOLUME 95.4 FL (80.0-100.0); MEAN CORPUSCULAR HEMOGLOBIN 32.2 PG (27.0-34.0); MEAN CORPUSCULAR HGB CONC 33.7 % (32.0-36.0); PLATELET COUNT 220 TH/MM3 (150-450); RED BLOOD COUNT 3.91 MIL/MM3 (4.50-5.90); RED CELL DISTRIBUTION WIDTH 12.9 % (11.6-17.2); REVIEW FLAG FINAL; WHITE BLOOD COUNT 14.8 TH/MM3 (4.0-11.0)
[2016-10-06 07:40] LABS: POTASSIUM 3.4 MEQ/L (3.5-5.1)
[2016-10-06 07:48] LABS: BICARBONATE 23.7 MEQ/L (21.0-32.0)
--- NOTE | 2016-10-06 08:10 | HHI.PR ---
Subjective Remarks Patient in bed, says he is having no abdominal pain at this time. Says he will try to eat residual diet today and hopes he can go home soon. Says usually ssteroids IV is helping in UC exacerbations. No diarrhea. No fever or chills. No n/v/d/c. Improving. Objective Vitals Vital Signs Date Time Temp Pulse Resp B/P Pulse Ox O2 Delivery O2 Flow Rate FiO2 10/06/16 00:00 98.1 57 18 108/65 97 10/05/16 20:00 97.5 69 16 118/72 97 10/05/16 16:10 96.7 68 18 117/65 95 10/05/16 12:58 96.4 69 18 118/64 95 10/05/16 08:51 97.3 67 18 115/67 95 I/O 10/05/16 10/05/16 10/05/16 10/06/16 10/06/16 10/06/16 07:00 15:00 23:00 07:00 15:00 23:00 Intake Total 605 ml 1712 ml 480 ml 1530 ml Output Total 1200 ml 2200 ml 800 ml 1000 ml Balance -595 ml -488 ml -320 ml 530 ml Intake Oral 480 ml 1040 ml 480 ml 480 ml IV Total 125 ml 672 ml 1050 ml Output Urine Total 1200 ml 2200 ml 800 ml 1000 ml # Bowel Movements 0 0 Result Diagram: 10/06/16 0510 10/06/16 0510 Imaging Last Impressions Abdomen/Pelvis CT 10/04/16 0000 Signed Impressions: Service Date/Time: Tuesday, October 04, 2016 03:57 - CONCLUSION: 1. Status post cholecystectomy. 2. Mild hepatic steatosis. 3. Small cystic structure in the body of the pancreas which is nonspecific but likely benign. Short-term CT followup is recommended beginning in 3 months. 4. Urinary bladder is mildly distended. 5. Small hiatal hernia. 6. Nonobstructive bowel gas pattern with no inflammatory change. Ramon Dotson MD Objective Remarks GENERAL: This is a pleasant 61 yo male, well-nourished, well-developed patient, in no apparent distress. CARDIOVASCULAR: Normal rate and regular rhythm without murmurs, gallops, or rubs. RESPIRATORY: Good respiratory efforts. Breath sounds equal and clear to auscultation bilaterally. GASTROINTESTINAL: Abdomen soft, non-distended. Tender to palpation over the left lower quadrant. Hyperactive bowel sounds MUSCULOSKELETAL: Extremities without cyanosis, or edema. NEURO: Alert & Oriented x4 to person, place, time, situation. Moves all ext x4 PSYCH: Appropriate mood and affect. A/P Problem List: (1) Ulcerative colitis ICD Code: K51.90 Status: Acute (2) Hyponatremia ICD Code: E87.1 Status: Acute (3) Hypokalemia ICD Code: E87.6 Status: Acute (4) Intractable abdominal pain ICD Code: R10.9 Status: Acute Assessment and Plan (1) Ulcerative colitis ICD Code: K51.90 Status: Acute Plan: No overt inflammatory process on abdominal CT. However patient notes his symptoms are very typical of his ulcerative colitis flare. He states he usually responds very quickly to IV Solu-Medrol and a prednisone taper. - We'll continue Asacol Continue Solu-Medrol IV 20 mg every 8 hours. - Improving, will consult GI for further recommendations. Advance diet to residucal diet per GI. Per GI to have uceris 9 mg daily at DC. Also patient needs to follow up as OP with GI . (2) Hyponatremia ICD Code: E87.1 Status: Acute Plan: Hypovolemic hyponatremia secondary to fluid loss from diarrhea. Resolved with IV fluid. Follow labs (3) Hypokalemia ICD Code: E87.6 Status: Acute Plan: Resolved after replacement. (4) Intractable abdominal pain ICD Code: R10.9 Status: Acute Plan: Pain control Bentyl as needed Discharge Planning Pending clinical improvement. Poss CO if continues to improve, tolerate residual diet and cleared by GI Problem Qualifiers (1) Ulcerative colitis: Qualified Code: K51.919 - Ulcerative colitis with complication, unspecified location Anna Jama MD October 06, 2016 08:10
[2016-10-06 08:30] VITALS: BP 160/86; PULSE 59; RESP 19; TEMP 96.5; O2SAT 93
[2016-10-06] MEDS: DICYCLOMINE HCL 20 MG TAB PO SCH ×2 (09:18→12:59)
[2016-10-06] MEDS: MESALAMINE HD 800 MG DELAYED RELEASE TAB PO SCH ×2 (09:18→12:59)
[2016-10-06] MEDS: CETIRIZINE HCL 10 MG TAB PO SCH (09:19)
[2016-10-06] MEDS: SODIUM CHLORIDE 0.9% FLUSH 10 ML FLUSH IV FLUSH SCH (09:19)
[2016-10-06] MEDS: SODIUM CHLOR 0.9% 1000 ML INJ 1,000 ML IV SCH (09:20)
[2016-10-06] MEDS ORDERED: PRED10PA PO (09:31)
[2016-10-06] MEDS ORDERED: BENT20TA PO (09:31)
--- NOTE | 2016-10-06 09:31 | HHI.DS ---
Discharge Summary Admission Date October 04, 2016 at 05:03 Discharge Date: October 06, 2016 Admitting Diagnosis Hyponatremia, Crohn's flare. (1) Ulcerative colitis ICD Code: K51.90 Diagnosis: Principal (2) Hyponatremia ICD Code: E87.1 Diagnosis: Principal (3) Hypokalemia ICD Code: E87.6 Diagnosis: Principal (4) Intractable abdominal pain ICD Code: R10.9 Diagnosis: Principal Procedures none Brief History - From Admission 61-year-old male with a medical history significant for ulcerative colitis presents with complaint of abdominal cramps for the past 2-3 days. Pain is mostly located on the left lower quadrant. He described a cramping pain and has been experiencing associated diarrhea. Some nausea but no vomiting. Patient reports this is typical for his ulcerative colitis flareup which he reports is usually treated with steroid and replacement of his electrolytes. He denies any fevers or chills. He does not have a local ekg technician. He reports that he gets a flare about twice a year. He is chronically on Humira and Asacol. Currently reports that his symptoms are improving. He received Bentyl in the ED. initial labs showed multiple electrolyte abnormalities including hyponatremia and hypokalemia. Patient reports he had a GI bug about a week ago which she believes started his current flareup. CBC/BMP: 10/06/16 0510 10/06/16 0510 Significant Findings Laboratory Tests Test 10/04/16 10/04/16 10/04/16 10/05/16 01:35 03:15 10:00 05:45 Neutrophils (%) (Auto) 71.7 % 83.7 % (16.0-70.0) (16.0-70.0) Basophils (%) (Auto) 4.3 % (0.0-2.0) Basophils # (Auto) 0.3 TH/MM3 (0-0.2) Sodium Level 123 MEQ/L 135 MEQ/L (136-145) (136-145) Potassium Level 3.2 MEQ/L (3.5-5.1) Chloride Level 89 MEQ/L (98-107) Carbon Dioxide Level 19.9 MEQ/L (21.0-32.0) Blood Urea Nitrogen 4 MG/DL (7-18) 4 MG/DL (7-18) 6 MG/DL (7-18) Random Glucose 118 MG/DL 125 MG/DL (74-106) (74-106) Total Bilirubin 1.1 MG/DL (0.2-1.0) Aspartate Amino Transf 38 U/L (15-37) (AST/SGOT) Troponin I LESS THAN 0.02 NG/ML (0.02-0.05) Urine Ketones 15 mg/dL (NEG) Urine Occult Blood TRACE (NEG) White Blood Count 14.5 TH/MM3 (4.0-11.0) Red Blood Count 4.11 MIL/MM3 (4.50-5.90) Hematocrit 38.4 % (39.0-51.0) Platelet Count 111 TH/MM3 (150-450) Neutrophils # (Auto) 12.2 TH/MM3 (1.8-7.7) Platelet Estimate LOW (NORMAL) Creatinine 0.48 MG/DL (0.60-1.30) Calcium Level 8.3 MG/DL (8.5-10.1) Test 10/06/16 05:10 White Blood Count 14.8 TH/MM3 (4.0-11.0) Red Blood Count 3.91 MIL/MM3 (4.50-5.90) Hemoglobin 12.6 GM/DL (13.0-17.0) Hematocrit 37.3 % (39.0-51.0) Potassium Level 3.4 MEQ/L (3.5-5.1) Chloride Level 108 MEQ/L (98-107) Blood Urea Nitrogen 5 MG/DL (7-18) Random Glucose 127 MG/DL (74-106) Calcium Level 8.3 MG/DL (8.5-10.1) Imaging Last Impressions Abdomen/Pelvis CT 10/04/16 0000 Signed Impressions: Service Date/Time: Tuesday, October 04, 2016 03:57 - CONCLUSION: 1. Status post cholecystectomy. 2. Mild hepatic steatosis. 3. Small cystic structure in the body of the pancreas which is nonspecific but likely benign. Short-term CT followup is recommended beginning in 3 months. 4. Urinary bladder is mildly distended. 5. Small hiatal hernia. 6. Nonobstructive bowel gas pattern with no inflammatory change. Ramon Dotson MD PE at Discharge GENERAL: This is a well-nourished, well-developed patient, in no apparent distress. CARDIOVASCULAR: Normal rate and regular rhythm without murmurs, gallops, or rubs. RESPIRATORY: Good respiratory efforts. Breath sounds equal and clear to auscultation bilaterally. GASTROINTESTINAL: Abdomen soft, non-distended. Tender to palpation over the left lower quadrant. Hyperactive bowel sounds MUSCULOSKELETAL: Extremities without cyanosis, or edema. NEURO: Alert & Oriented x4 to person, place, time, situation. Moves all ext x4 PSYCH: Appropriate mood and affect. Hospital Course (1) Ulcerative colitis ICD Code: K51.90 Status: Acute Plan: No overt inflammatory process on abdominal CT. However patient notes his symptoms are very typical of his ulcerative colitis flare. He states he usually responds very quickly to IV Solu-Medrol and a prednisone taper. - We'll continue Asacol Continue Solu-Medrol IV 20 mg every 8 hours. - Improving, will consult GI for further recommendations. Advance diet to residucal diet per GI. Per GI to have uceris 9 mg daily at [place]. Also patient needs to follow up as OP with GI . (2) Hyponatremia ICD Code: E87.1 Status: Acute Plan: Hypovolemic hyponatremia secondary to fluid loss from diarrhea. Resolved with IV fluid. Follow labs (3) Hypokalemia ICD Code: E87.6 Status: Acute Plan: Resolved after replacement. (4) Intractable abdominal pain ICD Code: R10.9 Status: Acute Plan: Pain control Bentyl as needed Improving. Tolerate low residue diet and cleared by GI to follow up as OP with PCP and GI. Pt Condition on Discharge: Stable Discharge Disposition: Discharge Home Discharge Time: > 30 minutes Discharge Instructions DIET: Follow Instructions for: Low Residue Diet Activities you can perform: Regular-No Restrictions Follow up Referrals: Gastroenterology - 1 Week @ [facility] with Melquiades Gomez MD PCP Follow-up - 3-5 Days New Medications: Budesonide ER 24 HR (Uceris ER 24 HR) 9 Mg Yomi 9 MG PO DAILY ulcerative colitis #30 Ref 0 TAB Prednisone (21) 10 mg tab Dose Pack (Prednisone (21) 10 mg tab Dose Pack) 10 Mg Pack 10 MG PO DIRECTED Inflammation #1 Ref 0 DSPK Dicyclomine (Bentyl) 20 Mg Tab 20 MG PO TID Pain Management #60 TAB Continued Medications: Adalimumab 2-Pack Inj (Humira 2-Pack Inj) 40 Mg/0.8 Ml Syr 40 MG SQ Q7D #2 KIT Cetirizine (Zyrtec Allergy) 10 Mg Cap 10 MG PO DAILY Allergies Ref 0 CAP Diphenhydramine (Benadryl Allergy) 25 Mg Tab 25 MG PO Q6H PRN ALLERGIES Ref [address] (Asacol HD) 800 Mg Tab 800 MG PO QID Swallow whole. Take on an empty stomach. Ulcerative colitis Ref 0 TAB Anna Jama MD October 06, 2016 09:31
[2016-10-06] MEDS ORDERED: BUDE9TAB PO (09:34)
[2016-10-06] MEDS ORDERED: PNEUMOCOCCAL POLYVALENT INJ 25 MCG/0.5 ML SYR IM ONE (10:00)
[2016-10-06] MEDS ORDERED: POTASSIUM CHLORIDE 20 MEQ CONTROLLED RELEASE TAB PO ONE (12:00)
[2016-10-06] MEDS: PANTOPRAZOLE SODIUM 40 MG VIAL IV PUSH SCH (13:00)
== END 2016-10-06 15:23 | disposition home or self-care (01) | DRG 386 ==
LOC: PHED 00:44 → PHEDA 05:03 → PH3B 06:01
PROVIDERS: ADMIT Hospitalist; ATTEND Hospitalist
DX: K50.90 Crohn's disease, unspecified, without complications (principal); E87.1 Hypo-osmolality and hyponatremia; E87.6 Hypokalemia; E86.9 Volume depletion, unspecified; Z23 Encounter for immunization
CPT/HCPCS: 74177; 80048; 80053; 81001; 83690; 84484; 85025; 85027; 85610; 85730; 90732; 93005; 96374; 96375; 96376; C9113; J0500; J2270; J2405; J2920; J3480; J7030; Q9967

== ENCOUNTER 2017-09-03 17:47 | Inpatient (IN) | payer BC ==
[~2017-09-03] VITALS: Ht 167.6 cm; Wt 75.0 kg
[~2017-09-03 17:47] MED LIST changes: +BENT20TA PO; +BUDE9TAB PO; -MILL5TAB PO; +PRED10PA PO
[2017-09-03 17:58] VITALS: BP_SYST 200; BP_SYST 201; BP_DIAS 108; BP_DIAS 113; PULSE 111; RESP 18; TEMP 98.9; O2SAT 98
[2017-09-03 18:11] VITALS: BP 137/81; PULSE 103; RESP 15; O2SAT 99
[2017-09-03] MEDS ORDERED: PANT40TA3 PO (18:19)
[2017-09-03] MEDS ORDERED: MONT10TA4 PO (18:19)
[2017-09-03] MEDS ORDERED: CETI-14 PO (18:19)
[2017-09-03] MEDS ORDERED: SODIUM CHLOR 0.9% 1000 ML INJ 1,000 ML IV ONE (18:26)
[2017-09-03] MEDS ORDERED: SODIUM CHLORIDE 0.9% FLUSH 10 ML FLUSH IVF PRN (18:30)
--- NOTE | 2017-09-03 18:38 | PD ---
HPI Chief Complaint: Dizziness Time Seen by Provider: 18:15 Travel History International Travel<30 days: No Contact w/Intl Traveler<30days: No Traveled to known affect area: No History of Present Illness HPI Patient is a 62-year-old male presenting to emergency department for evaluation of dizziness, muscle aches, headache. Patient states his symptoms started 1 week ago, getting progressively worse prompting his visit today. Patient reports increased thirst and urination. He reports a history of Crohn's disease. He reports mild abdominal bloating. He denies any nausea, vomiting, diarrhea, abdominal pain, shortness of breath, chest pain. Patient states the dizziness is worse when he changes positions however he feels dizzy all the time. He reports it as room spinning. He also feels like his vision is off, slightly blurry. Symptom onset was gradual, symptoms are moderate in nature. There are no alleviating factors. PFSH Past Medical History Gastrointestinal Disorders: Yes (Crohn's disease) Ulcer: No Tetanus Vaccination: < 5 Years Influenza Vaccination: Yes Past Surgical History Cholecystectomy: Yes Oral Surgery: No Thoracic Surgery: No Social History Alcohol Use: No Tobacco Use: No Substance Use: No Allergies-Medications (Allergen,Severity, Reaction): Coded Allergies: Sulfa (Sulfonamide Antibiotics) (Unverified Allergy, Severe, Diarrhea, ) diclofenac (Unverified Allergy, Severe, Diarrhea, 09/03/17) etodolac (Unverified Allergy, Severe, Diarrhea, 09/03/17) flurbiprofen (Unverified Allergy, Severe, Diarrhea, 09/03/17) ibuprofen (Unverified Allergy, Severe, Diarrhea, 09/03/17) indomethacin (Unverified Allergy, Severe, Diarrhea, 09/03/17) ketoprofen (Unverified Allergy, Severe, Diarrhea, 09/03/17) ketorolac (Unverified Allergy, Severe, Diarrhea, 09/03/17) naproxen (Unverified Allergy, Severe, Diarrhea, 09/03/17) oxaprozin (Unverified Allergy, Severe, Diarrhea, 09/03/17) Uncoded Allergies: ANTIBIOTICS (Allergy, Severe, 10/04/16) MAKES ULCERATIVE COLITIS FLARE UP Reported Meds & Prescriptions Reported Meds & Active Scripts Active Uceris ER 24 HR (Budesonide) 9 Mg Yomi 9 Mg PO DAILY Prednisone (21) 10 mg tab Dose Pack (Prednisone) 10 Mg Pack 10 Mg PO DIRECTED Reported Zyrtec (Cetirizine HCl) 10 Mg Tab.rapdis 1 Tab PO DAILY Montelukast (Montelukast Sodium) 10 Mg Tab 10 Mg PO HS Pantoprazole (Pantoprazole Sodium) 40 Mg Tab 40 Mg PO DAILY Humira 2-Pack Inj (Adalimumab 2-Pack Inj) 40 Mg/0.8 Ml Syr 40 Mg SQ Q7D Asacol HD (Mesalamine) 800 Mg Tab 800 Mg PO QID Swallow whole. Take on an empty stomach. Review of Systems Except as stated in HPI: all other systems reviewed are Neg General / Constitutional: No: Fever, Chills Eyes: Positive: Blurred Vision HENT: Positive: Headaches, Lightheadedness, No: Neck Pain Cardiovascular: Positive: Tachycardia, No: Chest Pain or Discomfort Respiratory: No: Shortness of Breath Gastrointestinal: No: Nausea, Vomiting, Abdominal Pain Musculoskeletal: Positive: Myalgias, Cramping Neurologic: Positive: Dizziness, No: Weakness, Syncope, Focal Abnormalities Physical Exam Narrative GENERAL: Well-developed, well-nourished, alert male. Presenting in no acute distress. SKIN: Warm and dry. HEAD: Atraumatic. Normocephalic. EYES: Pupils equal and round. No scleral icterus. No injection or drainage. ENT: No nasal bleeding or discharge. Mucous membranes pink and moist. NECK: Trachea midline. No JVD. CARDIOVASCULAR: Mildly tachycardic RESPIRATORY: No accessory muscle use. Clear to auscultation. Breath sounds equal bilaterally. GASTROINTESTINAL: Abdomen soft, nondistended. Hepatic and splenic margins not palpable. Positive bowel sounds, no rebound, no guarding. Mildly tender to palpation epigastric region. MUSCULOSKELETAL: Extremities without clubbing, cyanosis, or edema. No obvious deformities. NEUROLOGICAL: Awake and alert. No obvious cranial nerve deficits. Motor grossly within normal limits. Five out of 5 muscle strength in the arms and legs. Normal speech. PSYCHIATRIC: Appropriate mood and affect; insight and judgment normal. Data Data Last Documented VS Vital Signs Date Time Temp Pulse Resp B/P (MAP) Pulse Ox O2 Delivery O2 Flow Rate FiO2 09/03/17 20:31 101 16 189/105 (133) 99 Room Air 09/03/17 17:58 98.9 Orders Orders Electrocardiogram (09/03/17 ) Complete Blood Count With Diff (09/03/17:) Comprehensive Metabolic Panel (09/03/17) Magnesium (Mg) (09/03/17) Ckmb (Isoenzyme) Profile (09/03/17) Troponin I (09/03/17:) Act Partial Throm Time (Ptt) (09/03/17) Prothrombin Time / Inr (Pt) (09/03/17) Urinalysis - C+S If Indicated (09/03/17) Ct Brain W/O Iv Contrast(Rout) (09/03/17:) Ecg Monitoring (09/03/17) Iv Access Insert/Monitor (09/03/17) Oximetry (09/03/17) Sodium Chloride 0.9% Flush (Ns Flush) (09/03/17 18:30) Sodium Chlor 0.9% 1000 Ml Inj (Ns 1000 M (09/03/17 18:) Orthostatic Vital Signs (09/03/17 18:) Creatine Kinase (Cpk) (09/03/17 18:) CKMB (09/03/17 18:35) CKMB% (09/03/17 18:35) Morphine Inj (Morphine Inj) (09/03/17 19:45) Ondansetron Inj (Zofran Inj) (09/03/17 19:45) Lipase (09/03/17 19:55) Admit Order (Ed Use Only) (09/03/17 20:49) Metoprolol Tartrate Inj (Lopressor Inj) (09/03/17 21:15) Place In Observation (09/03/17 ) Vital Signs (Adult) Q4H (09/03/17 21:04) Activity Oob With Assistance (09/03/17 21:04) Wringer Operator / Telemetry .CONTINUOUS (09/03/17 21:04) Intake + Output ADITYA.QSHIFT (09/03/17 21:04) Diet Regular Basic (09/04/17 Breakfast) Sodium Chlor 0.9% 1000 Ml Inj (Ns 1000 M (09/03/17 21:04) Sodium Chloride 0.9% Flush (Ns Flush) (09/03/17 21:15) Sodium Chloride 0.9% Flush (Ns Flush) (09/04/17 09:00) Ondansetron Inj (Zofran Inj) (09/03/17 21:15) Comprehensive Metabolic Panel (09/04/17 06:00) Complete Blood Count With Diff (09/04/17 06:00) Scd Bilateral/Knee High ADITYA.BID (09/03/17 21:04) Cooper Bilateral/Knee High ADITYA.QSHIFT (09/03/17 21:05) Acetaminophen (Tylenol) (09/03/17 21:15) Acetamin-Hydrocod 325-5 Mg ([place] 5-325 (09/03/17 21:15) Morphine Inj (Morphine Inj) (09/03/17 21:15) Docusate Sodium-Senna (Moon-Colace) (09/04/17 09:00) Magnesium Hydroxide Liq (Milk Of Magnesi (09/03/17 21:15) Sennosides (Senokot) (09/03/17 21:15) Bisacodyl Supp (Dulcolax Supp) (09/03/17 21:15) Lactulose Liq (Lactulose Liq) (09/03/17 21:15) Mesalamine Hd Dr (Asacol Hd Dr) (09/04/17 09:00) Montelukast (Singulair) (09/04/17 21:00) Pantoprazole (Protonix) (09/04/17 09:00) (Nf) Budesonide Er 24 Hr (Uceris Er 24 H (09/04/17 09:00) Meclizine (Antivert) (09/03/17 21:15) Mri Brain W/O Contrast (09/03/17 ) Labs Laboratory Tests Test 09/03/17 18:35 09/03/17 19:30 09/03/17 19:35 Prothrombin Time 10.1 SEC Prothromb Time International Ratio 1.0 RATIO Activated Partial Thromboplast Time 22.7 SEC Blood Urea Nitrogen 7 MG/DL Creatinine 0.79 MG/DL Random Glucose 101 MG/DL Total Protein 8.2 GM/DL Albumin 4.1 GM/DL Calcium Level 9.3 MG/DL Magnesium Level 2.1 MG/DL Alkaline Phosphatase 50 U/L Aspartate Amino Transf (AST/SGOT) 35 U/L Alanine Aminotransferase (ALT/SGPT) 53 U/L Total Bilirubin 0.8 MG/DL Sodium Level 136 MEQ/L Potassium Level 3.7 MEQ/L Chloride Level 100 MEQ/L Carbon Dioxide Level 26.7 MEQ/L Anion Gap 9 MEQ/L Estimat Glomerular Filtration Rate 100 ML/MIN Total Creatine Kinase 121 U/L Creatine Kinase MB 2.4 NG/ML Troponin I LESS THAN 0.02 NG/ML White Blood Count 9.4 TH/MM3 Red Blood Count 4.70 MIL/MM3 Hemoglobin 15.5 GM/DL Hematocrit 44.1 % Mean Corpuscular Volume 93.7 FL Mean Corpuscular Hemoglobin 32.9 PG Mean Corpuscular Hemoglobin Concent 35.1 % Red Cell Distribution Width 14.6 % Platelet Count 267 TH/MM3 Mean Platelet Volume 7.4 FL Neutrophils (%) (Auto) 53.7 % Lymphocytes (%) (Auto) 36.6 % Monocytes (%) (Auto) 8.7 % Eosinophils (%) (Auto) 0.5 % Basophils (%) (Auto) 0.5 % Neutrophils # (Auto) 5.0 TH/MM3 Lymphocytes # (Auto) 3.4 TH/MM3 Monocytes # (Auto) 0.8 TH/MM3 Eosinophils # (Auto) 0.1 TH/MM3 Basophils # (Auto) 0.1 TH/MM3 CBC Comment DIFF FINAL Differential Comment Urine Color LIGHT-YELLOW Urine Turbidity CLEAR Urine pH 7.0 Urine Specific [place] 1.002 Urine Protein NEG mg/dL Urine Glucose (UA) NEG mg/dL Urine Ketones NEG mg/dL Urine Occult Blood NEG Urine Nitrite NEG Urine Bilirubin NEG Urine Urobilinogen LESS THAN 2.0 MG/DL Urine Leukocyte Esterase NEG Urine RBC LESS THAN 1 /hpf Microscopic Urinalysis Comment CULT NOT INDICATED MDM Medical Decision Making Medical Screen Exam Complete: Yes Emergency Medical Condition: Yes Medical Record Reviewed: Yes Interpretation(s) Last Impressions Head CT 09/03/17 1826 Signed Impressions: Service Date/Time: Sunday, September 03, 2017 18:47 - CONCLUSION: No acute disease. Reno Kaufman MD Laboratory Tests Test 09/03/17 18:35 09/03/17 19:30 09/03/17 19:35 Prothrombin Time 10.1 SEC Prothromb Time International Ratio 1.0 RATIO Activated Partial Thromboplast Time 22.7 SEC Blood Urea Nitrogen 7 MG/DL Creatinine 0.79 MG/DL Random Glucose 101 MG/DL Total Protein 8.2 GM/DL Albumin 4.1 GM/DL Calcium Level 9.3 MG/DL Magnesium Level 2.1 MG/DL Alkaline Phosphatase 50 U/L Aspartate Amino Transf (AST/SGOT) 35 U/L Alanine Aminotransferase (ALT/SGPT) 53 U/L Total Bilirubin 0.8 MG/DL Sodium Level 136 MEQ/L Potassium Level 3.7 MEQ/L Chloride Level 100 MEQ/L Carbon Dioxide Level 26.7 MEQ/L Anion Gap 9 MEQ/L Estimat Glomerular Filtration Rate 100 ML/MIN Total Creatine Kinase 121 U/L Creatine Kinase MB 2.4 NG/ML Troponin I LESS THAN 0.02 NG/ML White Blood Count 9.4 TH/MM3 Red Blood Count 4.70 MIL/MM3 Hemoglobin 15.5 GM/DL Hematocrit 44.1 % Mean Corpuscular Volume 93.7 FL Mean Corpuscular Hemoglobin 32.9 PG Mean Corpuscular Hemoglobin Concent 35.1 % Red Cell Distribution Width 14.6 % Platelet Count 267 TH/MM3 Mean Platelet Volume 7.4 FL Neutrophils (%) (Auto) 53.7 % Lymphocytes (%) (Auto) 36.6 % Monocytes (%) (Auto) 8.7 % Eosinophils (%) (Auto) 0.5 % Basophils (%) (Auto) 0.5 % Neutrophils # (Auto) 5.0 TH/MM3 Lymphocytes # (Auto) 3.4 TH/MM3 Monocytes # (Auto) 0.8 TH/MM3 Eosinophils # (Auto) 0.1 TH/MM3 Basophils # (Auto) 0.1 TH/MM3 CBC Comment DIFF FINAL Differential Comment Urine Color LIGHT-YELLOW Urine Turbidity CLEAR Urine pH 7.0 Urine Specific [place] 1.002 Urine Protein NEG mg/dL Urine Glucose (UA) NEG mg/dL Urine Ketones NEG mg/dL Urine Occult Blood NEG Urine Nitrite NEG Urine Bilirubin NEG Urine Urobilinogen LESS THAN 2.0 MG/DL Urine Leukocyte Esterase NEG Urine RBC LESS THAN 1 /hpf Microscopic Urinalysis Comment CULT NOT INDICATED Vital Signs Date Time Temp Pulse Resp B/P (MAP) Pulse Ox O2 Delivery O2 Flow Rate FiO2 09/03/17 18:11 99 Room Air 09/03/17 18:11 103 15 137/81 (99) 99 Room Air 09/03/17 17:58 98.9 111 18 201/113 (142) 98 200/108 (138) Differential Diagnosis Metabolic abnormality versus cardiac arrhythmia versus vertigo versus TIA versus CVA versus other Narrative Course Patient is a well-appearing 62-year-old male presenting for evaluation of dizziness, headache, muscle aches. Patient is mildly tachycardic, he was hypertensive on arrival. Labs and imaging ordered and pending. IV access established, patient placed on telemetry monitoring continuous pulse oximetry. Initial EKG shows sinus tachycardia with a rate of 106. This was reviewed by my attending physician. CBC, chemistry, CK, cardiac enzymes reviewed, no acute findings identified. Urinalysis is unremarkable CT of the head shows no acute disease. Patient remained hypertensive, he was given morphine and Zofran for the headache. Blood pressure remained elevated despite pain control, patient was given Lopressor 5 mg IV 1 dose. Discussed findings with my attending physician. Patient will be kept under observation. Dr. Martins accepted admission. Admit orders placed. Patient and are agreeable. Diagnosis Primary Impression: TIA (transient ischemic attack) Qualified Codes: G45.9 - Transient cerebral ischemic attack, unspecified Additional Impressions: Elevated blood pressure reading Headache Qualified Codes: R51 - Headache Myalgia Admitting Information Admitting Physician Requests: Observation Condition: Stable Nilsa Hines Sep 03, 2017 18:38
[2017-09-03 19:20] LABS: PROTHROMBIN TIME - PATIENT 10.1 SEC (9.8-11.6)
[2017-09-03 19:34] LABS: ALT (GPT) 53 U/L (12-78)
[2017-09-03 19:35] LABS: ALBUMIN 4.1 GM/DL (3.4-5.0); AST (GOT) 35 U/L (15-37); BICARBONATE 26.7 MEQ/L (21.0-32.0); BLOOD UREA NITROGEN 7 MG/DL (7-18); CALCIUM 9.3 MG/DL (8.5-10.1); CHLORIDE 100 MEQ/L (98-107); CREATININE 0.79 MG/DL (0.60-1.30); GLOMERULAR FILTRATION RATE 100 ML/MIN (>89); GLUCOSE,RANDOM 101 MG/DL (74-106); MAGNESIUM 2.1 MG/DL (1.5-2.5); SODIUM (NA) 136 MEQ/L (136-145)
[2017-09-03 19:38] LABS: ALKALINE PHOSPHATASE 50 U/L (45-117); TOTAL BILIRUBIN ADULT 0.8 MG/DL (0.2-1.0); TOTAL PROTEIN 8.2 GM/DL (6.4-8.2); TROPONIN I LESS THAN 0.02 NG/ML (0.02-0.05)
[2017-09-03] MEDS ORDERED: MORPHINE SULFATE 4 MG/ML INJ IV PUSH ONE (19:45)
[2017-09-03] MEDS ORDERED: ONDANSETRON HCL 4 MG/2 ML VIAL IV PUSH ONE (19:45)
[2017-09-03 19:47] VITALS: BP_SYST 195; BP_SYST 198; BP_SYST 200; BP_DIAS 108; BP_DIAS 109; BP_DIAS 97; RESP 20
--- NOTE | 2017-09-03 19:49 | PD ---
Physical Exam Narrative General: The patient is a well-developed well-nourished male in no acute distress. Head and Neck exam: Head is normocephalic atraumatic. Eyes: EOMI, pupils are equal round and reactive to light. Nose: Midline septum with pink mucous membranes Mouth: Dentition unremarkable. Moist mucus membranes. Posterior oropharynx is not erythematous. No tonsillar hypertrophy. Uvula midline. Airway patent. Neck: No palpable lymphadenopathy. No nuchal rigidity. No thyromegaly. Negative Brudzinski, negative Kernig sign Cardiovascular: Sinus tachycardia in the low 100 without murmurs, gallops, or rubs. No pulse deficit to the extremities on simultaneous auscultation and palpation of his radial artery. Lungs: Clear to auscultation bilaterally. No wheezes, rhonchi, or rales. Abdomen: Soft, with reported tenderness on palpation of the midepigastric area, no other tenderness on palpation of the other quadrants of the abdomen. No guarding, rebound, or rigidity. Normal bowel sounds are audible. No tenderness on palpation of McBurney's point. Negative Peralta sign. Extremities: No clubbing, cyanosis, or edema. 2+ pulses in all 4 extremities. No calf tenderness on palpation. Back: No costovertebral angle tenderness to palpation. Neurologic Exam: Cranial nerves 2-12 were intact on exam. Strength is 5/5 in all 4 extremities. No sensory deficits noted. Skin Exam: No rash noted. Intact skin that is warm and dry. Data Data Last Documented VS Vital Signs Date Time Temp Pulse Resp B/P (MAP) Pulse Ox O2 Delivery O2 Flow Rate FiO2 09/03/17 20:31 101 16 189/105 (133) 99 Room Air 09/03/17 17:58 98.9 Orders Orders Electrocardiogram (09/03/17 ) Complete Blood Count With Diff (09/03/17 18:26) Comprehensive Metabolic Panel (09/03/17 18:26) Magnesium (Mg) (09/03/17 18:26) Ckmb (Isoenzyme) Profile (09/03/17 18:26) Troponin I (09/03/17 18:26) Act Partial Throm Time (Ptt) (09/03/17 18:26) Prothrombin Time / Inr (Pt) (09/03/17 18:26) Urinalysis - C+S If Indicated (09/03/17 18:) Ct Brain W/O Iv Contrast(Rout) (09/03/17 18:) Ecg Monitoring (09/03/17) Iv Access Insert/Monitor (09/03/17) Oximetry (09/03/17) Sodium Chloride 0.9% Flush (Ns Flush) (09/03/17 18:) Sodium Chlor 0.9% 1000 Ml Inj (Ns 1000 M (09/03/17:) Orthostatic Vital Signs (09/03/17) Creatine Kinase (Cpk) (09/03/17:) CKMB (09/03/17:35) CKMB% (09/03/17:) Morphine Inj (Morphine Inj) (09/03/17 19:45) Ondansetron Inj (Zofran Inj) (09/03/17 19:45) Lipase (09/03/17 19:55) Admit Order (Ed Use Only) (09/03/17 20:49) Labs Laboratory Tests Test 09/03/17 18:35 09/03/17 19:30 09/03/17 19:35 Prothrombin Time 10.1 SEC Prothromb Time International Ratio 1.0 RATIO Activated Partial Thromboplast Time 22.7 SEC Blood Urea Nitrogen 7 MG/DL Creatinine 0.79 MG/DL Random Glucose 101 MG/DL Total Protein 8.2 GM/DL Albumin 4.1 GM/DL Calcium Level 9.3 MG/DL Magnesium Level 2.1 MG/DL Alkaline Phosphatase 50 U/L Aspartate Amino Transf (AST/SGOT) 35 U/L Alanine Aminotransferase (ALT/SGPT) 53 U/L Total Bilirubin 0.8 MG/DL Sodium Level 136 MEQ/L Potassium Level 3.7 MEQ/L Chloride Level 100 MEQ/L Carbon Dioxide Level 26.7 MEQ/L Anion Gap 9 MEQ/L Estimat Glomerular Filtration Rate 100 ML/MIN Total Creatine Kinase 121 U/L Creatine Kinase MB 2.4 NG/ML Troponin I LESS THAN 0.02 NG/ML Lipase 150 U/L White Blood Count 9.4 TH/MM3 Red Blood Count 4.70 MIL/MM3 Hemoglobin 15.5 GM/DL Hematocrit 44.1 % Mean Corpuscular Volume 93.7 FL Mean Corpuscular Hemoglobin 32.9 PG Mean Corpuscular Hemoglobin Concent 35.1 % Red Cell Distribution Width 14.6 % Platelet Count 267 TH/MM3 Mean Platelet Volume 7.4 FL Neutrophils (%) (Auto) 53.7 % Lymphocytes (%) (Auto) 36.6 % Monocytes (%) (Auto) 8.7 % Eosinophils (%) (Auto) 0.5 % Basophils (%) (Auto) 0.5 % Neutrophils # (Auto) 5.0 TH/MM3 Lymphocytes # (Auto) 3.4 TH/MM3 Monocytes # (Auto) 0.8 TH/MM3 Eosinophils # (Auto) 0.1 TH/MM3 Basophils # (Auto) 0.1 TH/MM3 CBC Comment DIFF FINAL Differential Comment Urine Color LIGHT-YELLOW Urine Turbidity CLEAR Urine pH 7.0 Urine Specific [place] 1.002 Urine Protein NEG mg/dL Urine Glucose (UA) NEG mg/dL Urine Ketones NEG mg/dL Urine Occult Blood NEG Urine Nitrite NEG Urine Bilirubin NEG Urine Urobilinogen LESS THAN 2.0 MG/DL Urine Leukocyte Esterase NEG Urine RBC LESS THAN 1 /hpf Microscopic Urinalysis Comment CULT NOT INDICATED MDM Medical Record Reviewed: Yes Supervised Visit with TIN: Yes Narrative Course I, Dr. Mariano, have reviewed the advance practice practitioner's documentation and am in agreement, met with the patient face to face, made the diagnosis, and the medical decision making was done by me. The patient was initially evaluated by Nilsa, the nurse practitioner. Please see their complete history and physical. *My assessment and Findings: The patient presents with reported history of having a headache, body aches, neck pain that began a week ago. The patient reports that he initially thought that the pain was related to sinus issues as he does have a history of severe hayfever allergies, however yesterday his symptoms began to worsen. He denies having any fever or nasal discharge. He denies having any productive cough or chest congestion. He reports that he is felt dizzy. He reports that any type of movement makes the dizziness worse. He reports having ringing in his ears. The patient additionally reports having some blurry vision. He denies having any loss of vision. He denies having any weakness of his extremities. He denies having any changes in the sensation in his extremities other than he does report having a sensation that his "socks feel too tight". During the course of the patient's emergency department visit, the patient's history, examination, and differential diagnosis were reviewed with the patient. The patient was placed on a panel monitor with oximetry and frequent blood pressure monitoring. The patient had IV access obtained and blood work sent for analysis. Orthostatic vital signs were done. The patient is not noted to be orthostatic. The patient is noted to be hypertensive which he denies having any history of. The patient's blood pressure at its highest was 201/113. The patient was initially provided morphine for pain, Zofran for nausea. The patient's studies were reviewed and remarkable for a white count of 9.4, hemoglobin 15.5, platelets 267 with 8.7 monocytes, CMP is within normal limits, cardiac enzymes within normal limits, lipase 150 PT 10.1, PTT 22.7, urinalysis within normal limits. CT scan of the brain showed no acute abnormality. The patient's results were discussed with the patient, including the plan of care. I explained that further testing and/ or monitoring is indicated based on the patient's history, examination, and/ or laboratory findings. Therefore, I recommended admission for additional evaluation. The patient expressed understanding and was agreeable with this plan. The patient was admitted to the hospital in stable condition and sent to a bed under the care of the [facility] service. Diagnosis Primary Impression: Headache Qualified Codes: R51 - Headache Additional Impressions: Dizziness HTN (hypertension) Qualified Codes: I10 - Essential (primary) hypertension Admitting Information Admitting Physician Requests: Ruby Casillas MD Sep 03, 2017 19:49
--- NOTE | 2017-09-03 19:55 | RADRPT ---
EXAM DATE/TIME: 09/03/2017 18:47 [facility] COMPARISON: CT BRAIN W/O CONTRAST, August 18, 2016, 2:45. INDICATIONS : Dizziness and blurred vision. RADIATION DOSE: 56.35 CTDIvol (mGy) MEDICAL HISTORY : Ulcerative colitis. SURGICAL HISTORY : Cholecystectomy. ENCOUNTER: Initial ACUITY: 1 day PAIN SCALE: 6/10 LOCATION: cranial TECHNIQUE: Multiple contiguous axial images were obtained of the head. Using automated exposure control and adj ustment of the mA and/or kV according to patient size, radiation dose was kept as low as reasonably a chievable to obtain optimal diagnostic quality images. DICOM format image data is available electro nically for review and comparison. FINDINGS: CEREBRUM: The ventricles are normal for age. No evidence of midline shift, mass lesion, hemorrhage or acute in farction. No extra-axial fluid collections are seen. POSTERIOR FOSSA: The cerebellum and brainstem are intact. The 4th ventricle is midline. The cerebellopontine angle i s unremarkable. EXTRACRANIAL: The visualized portion of the orbits is intact. SKULL: The calvaria is intact. No evidence of skull fracture. CONCLUSION: No acute disease. Reno Kaufman MD on September 03, 2017 at 19:53 Board Certified Radiologist. This report was verified electronically.
[2017-09-03 20:09] LABS: BASOPHIL # 0.1 TH/MM3 (0-0.2); BASOPHIL % 0.5 % (0.0-2.0); EOSINOPHIL # 0.1 TH/MM3 (0-0.4); EOSINOPHIL % 0.5 % (0.0-4.0); HEMATOCRIT 44.1 % (39.0-51.0); HEMOGLOBIN 15.5 GM/DL (13.0-17.0); LYMPH % 36.6 % (9.0-44.0); LYMPHOCYTE # 3.4 TH/MM3 (1.0-4.8); MEAN CELL VOLUME 93.7 FL (80.0-100.0); MEAN CORPUSCULAR HEMOGLOBIN 32.9 PG (27.0-34.0); MEAN CORPUSCULAR HGB CONC 35.1 % (32.0-36.0); MEAN PLATELET VOLUME 7.4 FL (7.0-11.0); MONO % 8.7 % (0.0-8.0); MONOCYTE # 0.8 TH/MM3 (0-0.9); NEUT % 53.7 % (16.0-70.0); PLATELET COUNT 267 TH/MM3 (150-450); RED CELL DISTRIBUTION WIDTH 14.6 % (11.6-17.2); WHITE BLOOD COUNT 9.4 TH/MM3 (4.0-11.0)
[2017-09-03 20:10] LABS: BILIRUBIN, URINE NEG (NEG); BLOOD, URINE NEG (NEG); GLUCOSE,URINE NEG (NEG); KETONE, URINE NEG (NEG); NITRITE,URINE NEG (NEG); URINE COLOR LIGHT-YELLOW (YELLW/STRAW); URINE LEUKOCYTE ESTERASE NEG (NEG)
[2017-09-03 20:31] VITALS: BP 189/105; PULSE 101; RESP 16; O2SAT 99
[2017-09-03] MEDS ORDERED: SODIUM CHLOR 0.9% 1000 ML INJ 1,000 ML IV SCH (21:04)
--- NOTE | 2017-09-03 21:08 | HHI.HP ---
[facility] Service [facility] ([place], [place])ists Primary Care Physician Kyra Gardner MD Admission Diagnosis TIA Diagnoses: (1) Headache Diagnosis: Principal (2) HTN (hypertension) Diagnosis: Principal (3) Dizziness Diagnosis: Principal (4) Crohn's disease Diagnosis: Principal Travel History International Travel<30 Days: No Contact w/Intl Traveler <30 Da: No Traveled to Known Affected Are: No History of Present Illness This is a 62-year-old male with a PMH of Crohn's Disease who presented to the ER with complaints of dizziness, headache, blurry vision and muscle aches in bilateral legs. States dizziness has been ongoing for approx 2-3wks, which he attributed to nasal congestion/sinus pressure from high pollen levels. Today, w / severe right frontal headache and associated blurry vision. Denies fever, chills, recent viral illness, no motor weakness/deficits, no h/o similar symptoms. On Humira for h/o Crohn's Disease w/ no change to meds. On arrival, BP 200/109, HR 96, O2 sat 99% RA, Afebrile. CBC unremarkable. Chemistry unremarkable. Troponin negative. INR 1.0. UA negative. CT Head with no acute findings. S/p Morphine in ER for headache w/ mild improvement, BP 180's Review of Systems Except as stated in HPI: all other systems reviewed are Neg ROS: 14 point review of systems otherwise negative. Past Family Social History Past Medical History PMH: Crohn's Disease Past Surgical History PAST SURGICAL HISTORY: Cholecystectomy Allergies: Coded Allergies: Sulfa (Sulfonamide Antibiotics) (Unverified Allergy, Severe, Diarrhea, ) diclofenac (Unverified Allergy, Severe, Diarrhea, 09/03/17) etodolac (Unverified Allergy, Severe, Diarrhea, 09/03/17) flurbiprofen (Unverified Allergy, Severe, Diarrhea, 09/03/17) ibuprofen (Unverified Allergy, Severe, Diarrhea, 09/03/17) indomethacin (Unverified Allergy, Severe, Diarrhea, 09/03/17) ketoprofen (Unverified Allergy, Severe, Diarrhea, 09/03/17) ketorolac (Unverified Allergy, Severe, Diarrhea, 09/03/17) naproxen (Unverified Allergy, Severe, Diarrhea, 09/03/17) oxaprozin (Unverified Allergy, Severe, Diarrhea, 09/03/17) Uncoded Allergies: ANTIBIOTICS (Allergy, Severe, 10/04/16) MAKES ULCERATIVE COLITIS FLARE UP Family History PAST FAMILY HISTORY: Reviewed. No h/o DM or CAD Social History PAST SOCIAL HISTORY: Negative for alcohol, tobacco or drugs Physical Exam Vital Signs Vital Signs Date Time Temp Pulse Resp B/P (MAP) Pulse Ox O2 Delivery O2 Flow Rate FiO2 09/03/17 20:31 101 16 189/105 (133) 99 Room Air 09/03/17 20:26 20 09/03/17 19:47 96 20 200/109 (139) 100 20 198/108 (138) 104 20 195/97 (129) 09/03/17 18:11 99 Room Air 09/03/17 18:11 103 15 137/81 (99) 99 Room Air 09/03/17 17:58 98.9 111 18 201/113 (142) 98 200/108 (138) Physical Exam PE: GENERAL: Very pleasant middle-aged white male in no acute distress. at bedside. HEENT: PERRLA, EOMI. No scleral icterus or conjunctival pallor. No lid lag or facial droop. CARDIOVASCULAR: Regular rate and rhythm. No obvious murmurs to auscultation. No chest tenderness to palpation. RESPIRATORY: No obvious rhonchi or wheezing. Clear to auscultation. Breath sounds equal bilaterally. GASTROINTESTINAL: Abdomen soft, non-tender, nondistended. BS normal. MUSCULOSKELETAL: Extremities without clubbing, cyanosis, or edema. No obvious deformities. NEUROLOGICAL: Awake, alert and oriented x4. No focal neurologic deficits. Moving both upper and lower extremities spontaneously. Laboratory Laboratory Tests Test 09/03/17 18:35 09/03/17 19:30 09/03/17 19:35 Prothrombin Time 10.1 Prothromb Time International Ratio 1.0 Activated Partial Thromboplast Time 22.7 Blood Urea Nitrogen 7 Creatinine 0.79 Random Glucose 101 Total Protein 8.2 Albumin 4.1 Calcium Level 9.3 Magnesium Level 2.1 Alkaline Phosphatase 50 Aspartate Amino Transf (AST/SGOT) 35 Alanine Aminotransferase (ALT/SGPT) 53 Total Bilirubin 0.8 Sodium Level 136 Potassium Level 3.7 Chloride Level 100 Carbon Dioxide Level 26.7 Anion Gap 9 Estimat Glomerular Filtration Rate 100 Total Creatine Kinase 121 Creatine Kinase MB 2.4 Troponin I LESS THAN 0.02 White Blood Count 9.4 Red Blood Count 4.70 Hemoglobin 15.5 Hematocrit 44.1 Mean Corpuscular Volume 93.7 Mean Corpuscular Hemoglobin 32.9 Mean Corpuscular Hemoglobin Concent 35.1 Red Cell Distribution Width 14.6 Platelet Count 267 Mean Platelet Volume 7.4 Neutrophils (%) (Auto) 53.7 Lymphocytes (%) (Auto) 36.6 Monocytes (%) (Auto) 8.7 Eosinophils (%) (Auto) 0.5 Basophils (%) (Auto) 0.5 Neutrophils # (Auto) 5.0 Lymphocytes # (Auto) 3.4 Monocytes # (Auto) 0.8 Eosinophils # (Auto) 0.1 Basophils # (Auto) 0.1 CBC Comment DIFF FINAL Differential Comment Urine Color LIGHT-YELLOW Urine Turbidity CLEAR Urine pH 7.0 Urine Specific Sun 1.002 Urine Protein NEG Urine Glucose (UA) NEG Urine Ketones NEG Urine Occult Blood NEG Urine Nitrite NEG Urine Bilirubin NEG Urine Urobilinogen LESS THAN 2.0 Urine Leukocyte Esterase NEG Urine RBC LESS THAN 1 Microscopic Urinalysis Comment CULT NOT INDICATED Result Diagram: 09/03/17192909/03/17 183 Caprini VTE Risk Assessment Caprini VTE Risk Assessment: No/Low Risk (score <= 1) Caprini Risk Assessment Model Point Value = 1 Point Value = 2 Point Value = 3 Point Value = 5 Age 41-60 Minor surgery BMI > 25 kg/m2 Swollen legs Varicose veins or History of unexplained or recurrent spontaneous Oral contraceptives or hormone replacement Sepsis (< 1 month) Serious lung disease, including pneumonia (< 1 month) Abnormal pulmonary function Acute myocardial infarction Congestive heart failure (< 1 month) History of inflammatory bowel disease Medical patient at bed rest Age 61-74 Arthroscopic surgery Major open surgery (> 45 min) Laparoscopic surgery (> 45 min) Malignancy Confined to bed (> 72 hours) Immobilizing plaster cast Central venous access Age >= 75 History of VTE Family history of VTE Factor V Leiden Prothrombin [id number] Lupus anticoagulant Anticardiolipin antibodies Elevated serum homocysteine Heparin-induced thrombocytopenia Other congenital or acquired thrombophilia Stroke (< 1 month) Elective arthroplasty Hip, pelvis, or leg fracture Acute spinal cord injury (< 1 month) Prophylaxis Regimen Total Risk Factor Score Risk Level Prophylaxis Regimen 0-1 Low Early ambulation 2 Moderate Order ONE of the following: *Sequential Compression Device (SCD) *Heparin 5000 units SQ BID 3-4 Higher Order ONE of the following medications: *Heparin 5000 units SQ TID *Enoxaparin/Lovenox 40 mg SQ daily (WT < 150 kg, CrCl > 30 mL/min) *Enoxaparin/Lovenox 30 mg SQ daily (WT < 150 kg, CrCl > 10-29 mL/min) *Enoxaparin/Lovenox 30 mg SQ BID (WT < 150 kg, CrCl > 30 mL/min) AND/OR *Sequential Compression Device (SCD) 5 or more Highest Order ONE of the following medications: *Heparin 5000 units SQ TID (Preferred with Epidurals) *Enoxaparin/Lovenox 40 mg SQ daily (WT < 150 kg, CrCl > 30 mL/min) *Enoxaparin/Lovenox 30 mg SQ daily (WT < 150 kg, CrCl > 10-29 mL/min) *Enoxaparin/Lovenox 30 mg SQ BID (WT < 150 kg, CrCl > 30 mL/min) AND *Sequential Compression Device (SCD) Assessment and Plan Problem List: (1) Headache ICD Code: R51 - Headache (2) Dizziness ICD Code: R42 - Dizziness and giddiness (3) HTN (hypertension) ICD Code: I10 - Essential (primary) hypertension (4) Crohn's disease ICD Code: K50.90 - Crohn's disease, unspecified, without complications Assessment and Plan A/P: 1. Headache: c/o acute right frontal headache w/ blurry vision today, now improved after Morphine IV. CT Head w/ no acute abnormality. Possibly related to severely elevated BP on arrival, continue w/ BP control, analgesics as needed. 2. Dizziness: in combination w/ headache, blurry vision, and muscle weakness, concern for possible CVA, admit for Observation, check MRI Brain for eval of stroke/tumor. 3. HTN: Uncontrolled. No h/o HTN, BP on arrival, >200 systolic, likely compounded by headache/pain complaints. S/p Morphine in ER w/ mild improvement. Lopressor 5mg IV given, BP now 160's. Continue to monitor BP, antihypertensives as needed. 4. Crohn's Disease: Stable, on Humira, no changes to medications. 5. DVT Prophylaxis: SCD/Teds 6. Social work for d/c planning as needed 7. Case discussed w/ ER physician at length MRI Brain reviewed...shows areas of demyelination in periventricular white matter, in light of vision changes and muscle weakness, will Consult Neurology for eval of possible MS. Check ESR/CRP Peyton Martins MD Sep 03, 2017 21:08
[2017-09-03] MEDS ORDERED: MECLIZINE HCL 25 MG TAB PO PRN (21:15)
[2017-09-03] MEDS ORDERED: METOPROLOL TARTRATE 5 MG/5 ML VIAL IV PUSH ONE (21:15)
[2017-09-03] MEDS ORDERED: SENNOSIDES 8.6 MG TAB PO PRN (21:15)
[2017-09-03] MEDS ORDERED: ACETAMINOPHEN/HYDROcodone 325 MG/5 MG TAB PO PRN (21:15)
[2017-09-03] MEDS ORDERED: MAGNESIUM HYDROXIDE SUSP 30 ML CUP PO PRN (21:15)
[2017-09-03] MEDS ORDERED: LACTULOSE SYRUP 20 GM/30 ML CUP PO PRN (21:15)
[2017-09-03] MEDS ORDERED: BISACODYL 10 MG SUPP RECTAL PRN (21:15)
[2017-09-03 22:03] VITALS: BP 168/92; PULSE 82; RESP 16; O2SAT 99
--- NOTE | 2017-09-03 22:35 | RADRPT ---
EXAM DATE/TIME: 09/03/2017 21:25 [facility] COMPARISON: No previous studies available for comparison. INDICATIONS : Dizziness. Weakness, fatigue. MEDICAL HISTORY : Ulcerative colitis. SURGICAL HISTORY : Cholecystectomy. ENCOUNTER: Initial ACUITY: 1 week PAIN SCORE: 0/10 LOCATION: cranial TECHNIQUE: Multiplanar, multisequence MRI of the brain was performed without contrast. FINDINGS: CEREBRUM: The ventricles are normal for age. No evidence of midline shift, mass lesion, hemorrhage or acute in farction. No extraaxial fluid collections are seen. The pituitary gland and suprasellar cistern are normal in configuration. WHITE MATTER: There is scattered mild increased signal in the periventricular white matter especially adjacent to t he posterior aspects of the lateral ventricles. POSTERIOR FOSSA: The cerebellum and brainstem are intact. The 4th ventricle is midline. The cerebellopontine angle is unremarkable. The cerebellar tonsils are normal in position. DIFFUSION IMAGING: No focal areas of restricted diffusion are seen. No evidence of acute infarction. EXTRACRANIAL: The visualized portions of the orbits and paranasal sinuses are unremarkable. CONCLUSION: 1. No acute abnormality is seen. 2. Mild areas of demyelination in the periventricular white matter. Reno Kaufman MD on September 03, 2017 at 22:30 Board Certified Radiologist. This report was verified electronically.
[2017-09-03 22:46] VITALS: BP_SYST 207; BP_SYST 209; BP_DIAS 103; BP_DIAS 94; PULSE 86; PULSE 90; RESP 16; TEMP 98.3; O2SAT 100
[2017-09-03] MEDS: cloNIDine HCL 0.1 MG TAB PO PRN (23:10)
[2017-09-04] VITALS (9 sets, daily range): BP systolic 157–194; BP diastolic 95–107; PULSE 79–107; RESP 16–20; TEMP 97.5–98.8; O2SAT 96–100
[2017-09-04] MEDS: ONDANSETRON HCL 4 MG/2 ML VIAL IVP PRN ×3 (04:34→22:39)
[2017-09-04] MEDS: MORPHINE SULFATE 2 MG/ML SYRINGE IV PUSH PRN ×3 (04:51→16:34)
[2017-09-04 07:52] LABS: AUTOMATED NEUTROPHIL # 4.3 TH/MM3 (1.8-7.7); BASOPHIL # 0.1 TH/MM3 (0-0.2); BASOPHIL % 0.7 % (0.0-2.0); EOSINOPHIL # 0.1 TH/MM3 (0-0.4); EOSINOPHIL % 0.6 % (0.0-4.0); HEMATOCRIT 40.7 % (39.0-51.0); HEMOGLOBIN 14.2 GM/DL (13.0-17.0); LYMPH % 42.9 % (9.0-44.0); MEAN CELL VOLUME 93.9 FL (80.0-100.0); MEAN CORPUSCULAR HEMOGLOBIN 32.7 PG (27.0-34.0); MEAN CORPUSCULAR HGB CONC 34.8 % (32.0-36.0); MEAN PLATELET VOLUME 7.4 FL (7.0-11.0); MONO % 9.9 % (0.0-8.0); MONOCYTE # 0.9 TH/MM3 (0-0.9); NEUT % 45.9 % (16.0-70.0); PLATELET COUNT 265 TH/MM3 (150-450); RED BLOOD COUNT 4.33 MIL/MM3 (4.50-5.90); RED CELL DISTRIBUTION WIDTH 14.7 % (11.6-17.2); WHITE BLOOD COUNT 9.3 TH/MM3 (4.0-11.0)
[2017-09-04 08:21] LABS: BICARBONATE 27.3 MEQ/L (21.0-32.0); CALCIUM 8.6 MG/DL (8.5-10.1); CHLORIDE 104 MEQ/L (98-107); GLUCOSE,RANDOM 87 MG/DL (74-106); SODIUM (NA) 139 MEQ/L (136-145)
[2017-09-04 08:26] LABS: ALBUMIN 3.4 GM/DL (3.4-5.0); ALKALINE PHOSPHATASE 51 U/L (45-117); ALT (GPT) 72 U/L (12-78); AST (GOT) 41 U/L (15-37); BLOOD UREA NITROGEN 8 MG/DL (7-18); CREATININE 0.69 MG/DL (0.60-1.30); GLOMERULAR FILTRATION RATE 117 ML/MIN (>89); TOTAL BILIRUBIN ADULT 0.4 MG/DL (0.2-1.0); TOTAL PROTEIN 7.1 GM/DL (6.4-8.2)
[2017-09-04] MEDS: DOCUSATE SODIUM 50 MG/SENNA 8.6 MG TAB PO SCH ×2 (09:00→20:22)
[2017-09-04] MEDS: UCERIS 9 MG PO SCH (09:00)
[2017-09-04] MEDS: PANTOPRAZOLE SOD 40 MG DELAYED RELEASE TAB PO SCH (09:26)
[2017-09-04] MEDS: LISINOPRIL 20 MG TAB PO SCH (09:26)
[2017-09-04] MEDS: SODIUM CHLORIDE 0.9% FLUSH 10 ML FLUSH IV FLUSH SCH ×2 (09:26→21:20)
[2017-09-04] MEDS: MESALAMINE HD 800 MG DELAYED RELEASE TAB PO SCH ×4 (09:26→20:22)
--- NOTE | 2017-09-04 09:32 | HHI.PR ---
Subjective Remarks in no acute distress. headache and vision is better than last night. BP trend noted. d/w the RN. Objective Vitals Vital Signs Date Time Temp Pulse Resp B/P (MAP) Pulse Ox O2 Delivery O2 Flow Rate FiO2 09/04/17 08:00 98.1 79 18 162/96 (118) 97 09/04/17 04:23 98.8 107 16 157/98 (117) 98 09/04/17 00:37 176/95 (122) 09/04/17 00:03 98.6 91 17 183/95 (124) 96 09/03/17 22:46 98.3 86 16 207/94 (131) 100 09/03/17 22:03 82 16 168/92 (117) 99 Room Air 09/03/17 20:31 101 16 189/105 (133) 99 Room Air 09/03/17 20:26 20 09/03/17 19:47 96 20 200/109 (139) 100 20 198/108 (138) 104 20 195/97 (129) 09/03/17 18:11 99 Room Air 09/03/17 18:11 103 15 137/81 (99) 99 Room Air 09/03/17 17:58 98.9 111 18 201/113 (142) 98 200/108 (138) I/O 09/03/17 09/03/17 09/03/17 09/04/17 09/04/17 09/04/17 07:00 15:00 23:00 07:00 15:00 23:00 Intake Total 1000 ml 591 ml Balance 1000 ml 591 ml Intake Oral 591 ml IV Total 1000 ml # Voids 1 Result Diagram: 09/04/17 0710 09/04/17 0710 Imaging Last Impressions Head CT 09/03/17 1826 Signed Impressions: Service Date/Time: Sunday, September 03, 2017 18:47 - CONCLUSION: No acute disease. Reno Kaufman MD Brain MRI 09/03/17 0000 Signed Impressions: Service Date/Time: Sunday, September 03, 2017 21:25 - CONCLUSION: 1. No acute abnormality is seen. 2. Mild areas of demyelination in the periventricular white matter. Reno Kaufman MD Objective Remarks GENERAL: This is a well-nourished, well-developed patient, in no apparent distress. CARDIOVASCULAR: Regular rate and regular rhythm without murmurs, gallops, or rubs. RESPIRATORY: Clear to auscultation. Breath sounds equal bilaterally. No wheezes , rales, or rhonchi. GASTROINTESTINAL: Abdomen soft, non-tender, nondistended. Normal, active bowel sounds MUSCULOSKELETAL: Extremities without clubbing, cyanosis, or edema. NEURO: Alert & Oriented x4 to person, place, time, situation. Moves all ext x4 Medications and IVs Inpatient Medications Acetaminophen (Tylenol) 650 mg Q6H PRN PO FEVER/PAIN SCALE 1 TO 2; Start at 21:15 Acetaminophen/ Hydrocodone Bitart (Drayton 5-325 Mg) 1 tab Q4H PRN PO PAIN SCALE 3 TO 5; Start 09/03/17 at 21:15 Bisacodyl (Dulcolax Supp) 10 mg DAILY PRN RECTAL SEVERE CONSITIPATION/ IF NPO ; Start 09/03/17 at 21:15 Clonidine (Catapres) 0.1 mg Q6H PRN PO SBP> OR = 180, DBP> OR = 100 Last administered on 09/03/17at 23:10; Start 09/03/17 at 23:00 Lactulose (Lactulose Liq) 30 ml DAILY PRN PO SEVERE CONSITIPATION/ IF PO; Start 09/03/17 at 21:15 Lisinopril (Prinivil) 20 mg DAILY PO ; Start 09/04/17 at 09:00 Magnesium Hydroxide (Milk Of Magnesia Liq) 30 ml Q12H PRN PO Mild constipation ; Start 09/03/17 at 21:15 Meclizine HCl (Antivert) 25 mg Q8H PRN PO DIZZINESS; Start 09/03/17 at 21:15 Mesalamine (Asacol Hd Dr) 800 mg QID PO ; Start 09/04/17 at 09:00 Metoprolol Tartrate (Lopressor Inj) 5 mg ONCE ONCE IV PUSH Last administered on 09/03/17at 21:06; Start 09/03/17 at 21:15; Stop 09/03/17 at 21:16; Status DC Montelukast Sodium (Singulair) 10 mg HS PO ; Start 09/04/17 at 21:00 Morphine Sulfate (Morphine Inj) 2 mg Q3H PRN IV PUSH Pain 6-10 Last administered on 09/04/17at 04:51; Start 09/03/17 at 21:15 Ondansetron HCl (Zofran Inj) 4 mg Q6H PRN IVP NAUSEA OR VOMITING Last administered on 09/04/17at 04:34; Start 09/03/17 at 21:15 Pantoprazole Sodium (Protonix) 40 mg DAILY PO ; Start 09/04/17 at 09:00 Patient Own Medication PT OWN MED: UCERIS... DAILY PO ; Start 09/04/17 at 09:00 Senna/Docusate Sodium (Moon-Colace) 1 tab BID PO ; Start 09/04/17 at 09:00 Sennosides (Senokot) 17.2 mg Q12H PRN PO Moderate constipation; Start 09/03/17 at 21:15 Sodium Chloride (NS Flush) 2 ml BID IV FLUSH ; Start 09/04/17 at 09:00 A/P Problem List: (1) Headache ICD Code: R51 - Headache (2) Dizziness ICD Code: R42 - Dizziness and giddiness (3) HTN (hypertension) ICD Code: I10 - Essential (primary) hypertension (4) Crohn's disease ICD Code: K50.90 - Crohn's disease, unspecified, without complications Assessment and Plan 1. Headache: CT Head w/ no acute abnormality. MRI brain with some demyelination in the white matter- neurology consulted. 2. Dizziness: in combination w/ headache, blurry vision, and muscle weakness- neurology consult as noted above. 3. HTN: Uncontrolled. No h/o HTN, BP on arrival, >200 systolic, likely compounded by headache/pain complaints. S added lisinopril- clonidine as needed- will monitor and adjust the regimen as needed. 4. Crohn's Disease: Stable, on Humira, no changes to medications. 5.hypokalemia; will replace. 6. DVT Prophylaxis: SCD/Teds Discharge Planning awaiting neurology evaluation. Magnus Clark MD Sep 04, 2017 09:32
[2017-09-04] MEDS ORDERED: POTASSIUM CHLORIDE 10 MEQ CONTROLLED RELEASE TAB PO ONE ×2 (10:30→14:00)
--- NOTE | 2017-09-04 10:32 | MB ---
cc: Ramandeep Guajardo MD DATE: 09/04/2017 HISTORY OF PRESENT ILLNESS: He came to the hospital yesterday and there is a history of ulcerative colitis and he came in complaining of some lightheadedness, dizziness. He had some cramping in his legs and apparently started falling on his right knee. He swears he did not lose consciousness and he was awake the whole time. He has been having some symptoms for a couple of weeks including headaches. He follows with Dr. Gardner for medical care. The blood pressure was elevated to 200/109 yesterday. He does not take NSAIDs because of his GI history. An MRI brain showed findings of demyelination. Today, he is feeling much better. He denied any residual blurriness of vision. No headaches. NEUROLOGICAL EXAMINATION: Examination showed the patient to be alert, pleasant, oriented. Mentation was normal. He was in good spirits. Pupils were equal and reactive. Visual lawrence full. No facial weakness. He has good strength in all 4 limbs on the bedside exam. Reflexes were 1-2+. Plantar responses flexor. IMAGING STUDIES: MRI brain revealed probable ischemic demyelinization/microvascular disease. LABORATORY DATA: CBC and sedimentation rate normal. Chemistry is essentially normal with AST today being elevated to 41, but it was 35 yesterday. Urinalysis negative. ASSESSMENT AND PLAN: Dizziness, lightheadedness, headaches and hypertensive disease with blurriness of vision. MRI brain findings probably related to microvascular disease from chronic hypertensive disorder, nonspecific. I will check an MRA on him and also run a carotid ultrasound if not done yet. Otherwise, continue medical care. We will request lipid profile. Thank you for asking us to assist in his care. Ramandeep Guajardo MD OFC/SB , 10:12 AM , 10:31 AM
--- NOTE | 2017-09-04 10:35 | EKG ---
Date Performed: 09/03/2017 Time Performed: 18:15:14 PTAGE: 62 years EKG: SINUS TACHYCARDIA ABNORMAL RHYTHM ECG Since the PREVIOUS TRACING , no significant change noted PREVIOUS TRACIN10/04/2016 02.17 DOCTOR: Dillan Sharif Interpretating Date/Time 09/04/2017 10:32:06
[2017-09-04] MEDS: cloNIDine HCL 0.1 MG TAB PO PRN ×2 (11:17→18:40)
[2017-09-04 11:26] LABS: CHOLESTEROL/ HDL RATIO 3.13 RATIO; HDL CHOLESTEROL 47.2 MG/DL (40.0-60.0)
--- NOTE | 2017-09-04 11:48 | RADRPT ---
EXAM DATE/TIME: 09/04/2017 10:44 [facility] COMPARISON: No previous studies available for comparison. INDICATIONS : Dizziness. MEDICAL HISTORY : colitis SURGICAL HISTORY : Cholecystectomy. ENCOUNTER: Subsequent ACUITY: 1 week PAIN SCORE: 0/10 LOCATION: cranial Please note a normal MRA of the brain does not entirely exclude the possibility of a small aneurysm, nor the possibility of distal intracranial vessel disease. TECHNIQUE: 3D time of flight MRA was performed. Source images, multiplanar STS MIP, and 3D volume MIP reconstru ctions were reviewed. FINDINGS: There is excellent visualization of the major intracranial arteries out to the second-order branch ve ssels. There appears to be a small projection off the superior aspect of the right M1/M2 segment whic h I believe represents a small infundibulum. However, on this particular study, it is difficult to co nfirm the emanating vessel. Otherwise, intracranial vessels are all patent. 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 The anterior commuting joshua ry is patent. Patient is slightly left vertebral dominant. CONCLUSION: 1. Small projection superiorly off the junction of the right M1 and M2 segments I believe represents a small infundibulum. However, it is difficult to identify the emanating vessel on the MRA. If there is a clinical concern, CTA with its higher spatial resolution could be performed for further characte rization. 2. Otherwise, intracranial vessels are patent. 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 Yaya Laguerre MD on September 04, 2017 at 11:41 Board Certified Radiologist. This report was verified electronically.
--- NOTE | 2017-09-04 15:06 | RADRPT ---
EXAM DATE/TIME: 09/04/2017 14:27 [facility] COMPARISON: No previous studies available for comparison. INDICATIONS : Transient ischemic attack. MEDICAL HISTORY : Crohn's disease. SURGICAL HISTORY : Cholecystectomy. ENCOUNTER: Initial ACUITY: 1 day PAIN SCORE: 0/10 LOCATION: Bilateral neck PEAK SYSTOLIC VELOCITIES (cm/sec): ICA/CCA RATIO: Right: 1.1 Left: 1.0 ICA: Right: 76 Left: 77 CCA: Right: 72 Left: 76 ECA: Right: 106 Left: 86 VERTEBRAL: Right: 38 antegrade Left: 54 antegrade Elevated flow velocities and ICA/CCA ratios have been found to correlate with increased degrees of vessel stenosis, calculated as percentage of diameter relative to a normal segment of distal ICA/CCA FINDINGS: RIGHT CAROTID: There is no evidence for a hemodynamically significant carotid stenosis. Minimal int imal hyperplasia is present with scattered calcific plaque. LEFT CAROTID: There is no evidence for a hemodynamically significant carotid stenosis. Minimal inti mal hyperplasia is present with scattered calcific plaque. VERTEBRAL ARTERIES: Flow is antegrade in both vertebral arteries. MISCELLANEOUS: There are no ancillary masses or adenopathy. CONCLUSION: Negative examination for a hemodynamically significant carotid stenosis. George Blackwood MD FACR on September 04, 2017 at 15:04 Board Certified Radiologist. This report was verified electronically.
[2017-09-04] MEDS ORDERED: LACTULOSE SYRUP 20 GM/30 ML CUP PO ONE (18:45)
[2017-09-04] MEDS ORDERED: LORazepam 0.5 MG TAB PO ONE (21:15)
[2017-09-04] MEDS: MONTELUKAST SODIUM 10 MG TAB PO SCH (21:20)
[2017-09-04] MEDS: SODIUM CHLORIDE 0.9% FLUSH 10 ML FLUSH IV FLUSH PRN (22:40)
[2017-09-05] VITALS (8 sets, daily range): BP systolic 133–178; BP diastolic 76–104; PULSE 89–119; RESP 18–19; TEMP 97.7–98.8; O2SAT 95–97
[2017-09-05] MEDS: NS + KCL 20 MEQ INJ 1,000 ML IV SCH (00:30)
[2017-09-05] MEDS: cloNIDine HCL 0.1 MG TAB PO PRN (00:45)
[2017-09-05] MEDS ORDERED: cloNIDine HCL 0.1 MG TAB PO ONE (02:30)
[2017-09-05] MEDS ORDERED: PROCHLORPERAZINE INJ 10 MG/2 ML VIAL IV PUSH ONE (03:30)
[2017-09-05] MEDS: SODIUM CHLORIDE 0.9% FLUSH 10 ML FLUSH IV FLUSH PRN (03:47)
[2017-09-05] MEDS: DOCUSATE SODIUM 50 MG/SENNA 8.6 MG TAB PO SCH ×2 (09:00→22:14)
[2017-09-05] MEDS: UCERIS 9 MG PO SCH (09:00)
[2017-09-05] MEDS: SODIUM CHLORIDE 0.9% FLUSH 10 ML FLUSH IV FLUSH SCH ×2 (09:29→22:14)
[2017-09-05] MEDS: LISINOPRIL 20 MG TAB PO SCH (09:30)
[2017-09-05] MEDS: PANTOPRAZOLE SOD 40 MG DELAYED RELEASE TAB PO SCH (09:30)
[2017-09-05] MEDS: MESALAMINE HD 800 MG DELAYED RELEASE TAB PO SCH ×4 (09:31→22:14)
[2017-09-05] MEDS: ONDANSETRON HCL 4 MG/2 ML VIAL IVP PRN (09:31)
--- NOTE | 2017-09-05 10:02 | MB ---
cc: Bennett Flower MD DATE: 09/05/2017 REASON FOR GI CONSULTATION: Evaluation for a history of ulcerative colitis. HISTORY OF PRESENT ILLNESS: The patient presents to the emergency room with lightheadedness, dizziness, and unsteady gait. He is having some visual problems as well. He presented to the ER with a blood pressure of 200/109 on 09/03/2017. MRI of the brain showed findings of demyelination. He is feeling better. His blood pressure is more controlled at this time, but he has had some ongoing nausea, dyspepsia, due to perhaps his blood pressure medications. He is followed by neurology at this time. MRI of the brain reflects possible changes due to chronic hypertensive disease. Blood pressure currently has a systolic pressure of 92. Regarding his GI tract, he is followed by Dr. Taylor in our office. He was scheduled for repeat colonoscopy in April of last year as the one prior to that was in 2010. The patient canceled the colonoscopy in April due to personal reasons and did not reschedule. He has been treated with Lialda 4 capsules a day and also he had been receiving Humira biologic injection therapy. He states he has continued with that. He currently denies any lower GI symptoms in the sense that he has no diarrhea. He denies any rectal bleeding. Occasionally, he has abdominal cramping. He usually has 2 bowel movements a day. He has had no significant weight loss. He denies any fever or chills. We were asked to evaluate him further. CURRENT MEDICATIONS: Include clonidine and lisinopril. He is taking Mesalamine, metoprolol, Singulair, ondansetron, pantoprazole and senna. SOCIAL HISTORY: Denies illicit drug use or alcohol. PAST SURGICAL HISTORY: Includes a cholecystectomy. ALLERGIES: SULFA, DICLOFENAC, IBUPROFEN, INDOMETHACIN, KETOROLAC, NAPROXEN, OXAPROZIN. FAMILY HISTORY: Negative from a GI standpoint. REVIEW OF SYSTEMS: A 12-point review of systems as stated in the HPI. Blurred vision, headache, and lightheadedness were noted as stated above. He denies any significant lower GI symptoms. LABORATORY DATA: Liver enzymes mildly elevated. Alkaline phosphatase 50, SGOT 35, SGPT 73. Bilirubin was normal. Troponins were negative. Hemoglobin was 15, white count 9.4. Albumin 4.1. PHYSICAL EXAMINATION: GENERAL: A well-developed male, alert and oriented x 3 in no acute distress. VITAL SIGNS: Blood pressure is 140/93. He is afebrile. HEENT: Normocephalic, atraumatic. Sclerae are anicteric. Oral mucosa moist. NECK: Supple. No JVD. CARDIAC: S1, S2, regular rhythm. CHEST: Clear to A and P. ABDOMEN: Generally soft. Bowel sounds are present. No masses or organomegaly. There is no rebound tenderness. EXTREMITIES: Without clubbing, cyanosis or edema. IMPRESSION: 1. Accelerated hypertension. 2. Dizziness, lightheadedness, blurred vision secondary to above. 3. The patient is currently undergoing the neurological workup for symptoms outlined above by neurology. 4. History of ulcerative colitis appears to be stable at this time with his current medications including mesalamine and Humira. The patient is also noted to be previously taking Uceris. PLAN: At this time, I would continue with his mesalamine and Humira combination. The patient will require colonoscopy surveillance. I have instructed him that he will need to contact our office to reschedule that procedure and he may want to be seen by Dr. Taylor prior to the procedure because of his blood pressure issues. The patient has been having some nausea and dyspeptic symptoms, probably related to the antihypertensives he has been taking here in the hospital. I do not think that the patient is having an acute flare of his ulcerative colitis at this time. He denies any diarrhea or rectal bleeding. The patient will follow up with Dr. Taylor as per my recommendations and he will require a colonoscopy evaluation at some point soon as he is stable. Thank you kindly for contacting us. I have discussed this in detail with the patient. MD SHANNAN Maldonado/TIANA , 09:33 AM , 10:01 AM
[2017-09-05] MEDS ORDERED: IOHEXOL 350 MG/ML 10 ML VIAL (for RAD DIAG) IVCONTRAST ONE (10:52)
[2017-09-05] MEDS ORDERED: NIFEdipine 30 MG SUSTAINED RELEASE TAB PO ONE (11:45)
--- NOTE | 2017-09-05 11:45 | HHI.PR ---
Subjective Remarks in no acute distress. he says that overall he's not feeling well today. still with some headache. BP trend noted. Objective Vitals Vital Signs Date Time Temp Pulse Resp B/P (MAP) Pulse Ox O2 Delivery O2 Flow Rate FiO2 09/05/17 09:08 97.7 102 18 156/93 (114) 97 09/05/17 04:42 98.6 110 19 169/98 (121) 97 09/05/17 03:52 89 09/05/17 02:21 178/104 (128) 09/05/17 01:40 106 09/04/17 22:37 98.1 105 18 170/100 (123) 99 09/04/17 20:09 97.5 102 17 194/104 (134) 100 09/04/17 16:41 20 09/04/17 16:00 97.6 93 20 166/98 (120) 98 09/04/17 12:00 98.0 91 20 174/98 (123) 99 I/O 09/04/17 09/04/17 09/04/17 09/05/17 09/05/17 09/05/17 07:00 15:00 23:00 07:00 15:00 23:00 Intake Total 591 ml 360 ml Balance 591 ml 360 ml Intake Oral 591 ml 360 ml # Voids 1 3 Result Diagram: 09/04/17 0710 09/04/17 0710 Imaging Last Impressions Head Magnetic Resonance Angiography 09/04/17 0000 Signed Impressions: Service Date/Time: Monday, September 04, 2017 10:44 - CONCLUSION: 1. Small projection superiorly off the junction of the right M1 and M2 segments I believe represents a small infundibulum. However, it is difficult to identify the emanating vessel on the MRA. If there is a clinical concern, CTA with its higher spatial resolution could be performed for further characterization. 2. Otherwise, intracranial vessels are patent. 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 Yaya Laguerre MD Carotid Artery Ultrasound 09/04/17 0000 Signed Impressions: Service Date/Time: Monday, September 04, 2017 14:27 - CONCLUSION: Negative examination for a hemodynamically significant carotid stenosis. George Blackwood MD FACR Head CT 09/03/17 1826 Signed Impressions: Service Date/Time: Sunday, September 03, 2017 18:47 - CONCLUSION: No acute disease. Reno Kaufman MD Brain MRI 09/03/17 0000 Signed Impressions: Service Date/Time: Sunday, September 03, 2017 21:25 - CONCLUSION: 1. No acute abnormality is seen. 2. Mild areas of demyelination in the periventricular white matter. Reno Kaufman MD Objective Remarks GENERAL: This is a well-nourished, well-developed patient, in no apparent distress. CARDIOVASCULAR: Regular rate and regular rhythm without murmurs, gallops, or rubs. RESPIRATORY: Clear to auscultation. Breath sounds equal bilaterally. No wheezes , rales, or rhonchi. GASTROINTESTINAL: Abdomen soft, non-tender, nondistended. Normal, active bowel sounds MUSCULOSKELETAL: Extremities without clubbing, cyanosis, or edema. NEURO: Alert & Oriented x4 to person, place, time, situation. Moves all ext x4 Procedures none Medications and IVs Inpatient Medications Acetaminophen (Tylenol) 650 mg Q6H PRN PO FEVER/PAIN SCALE 1 TO 2; Start at 21:15 Acetaminophen/ Hydrocodone Bitart ([place] 5-325 Mg) 1 tab Q4H PRN PO PAIN SCALE 3 TO 5; Start 09/03/17 at 21:15 Amlodipine Besylate (Norvasc) 10 mg DAILY PO Last administered on 09/05/17at 09: 31; Start 09/04/17 at 18:45 Bisacodyl (Dulcolax Supp) 10 mg DAILY PRN RECTAL SEVERE CONSITIPATION/ IF NPO ; Start 09/03/17 at 21:15 Clonidine (Catapres) 0.1 mg ONCE ONCE PO Last administered on 09/05/17at 02:33 ; Start 09/05/17 at 02:30; Stop 09/05/17 at 02:31; Status DC Lactulose (Lactulose Liq) 30 ml ONCE ONCE PO ; Start 09/04/17 at 18:45; Stop at 19:15; Status DC Lisinopril (Prinivil) 20 mg DAILY PO Last administered on 09/05/17at 09:30; Start 09/04/17 at 09:00 Lorazepam (Ativan) 0.5 mg ONCE ONCE PO Last administered on 09/04/17 21:20; Start 09/04/17 at 21:15; Stop 09/04/17 at 21:16; Status DC Magnesium Hydroxide (Milk Of Magnesia Liq) 30 ml Q12H PRN PO Mild constipation ; Start 09/03/17 at 21:15 Meclizine HCl (Antivert) 25 mg Q8H PRN PO DIZZINESS; Start 09/03/17 at 21:15 Mesalamine (Asacol Hd Dr) 800 mg QID PO Last administered on 09/05/17at 09:31; Start 09/04/17 at 09:00 Metoprolol Tartrate (Lopressor Inj) 5 mg ONCE ONCE IV PUSH Last administered on 09/03/17 21:06; Start 09/03/17 at 21:15; Stop 09/03/17 at 21:16; Status DC Montelukast Sodium (Singulair) 10 mg HS PO Last administered on 09/04/17at 21:20 ; Start 09/04/17 at 21:00 Morphine Sulfate (Morphine Inj) 2 mg Q3H PRN IV PUSH Pain 6-10 Last administered on 09/04/17at 16:34; Start 09/03/17 at 21:15 Ondansetron HCl (Zofran Inj) 4 mg Q6H PRN IVP NAUSEA OR VOMITING Last administered on 09/05/17at 09:31; Start 09/03/17 at 21:15 Pantoprazole Sodium (Protonix) 40 mg DAILY PO Last administered on 09/05/17at 09 :30; Start 09/04/17 at 09:00 Patient Own Medication PT OWN MED: UCERIS... DAILY PO ; Start 09/04/17 at 09:00 Potassium Chloride (KCl) 30 meq ONCE ONCE PO Last administered on 09/04/17at 13 :03; Start 09/04/17 at 14:00; Stop 09/04/17 at 14:01; Status DC Prochlorperazine Edisylate (Compazine Inj) 5 mg ONCE ONCE IV PUSH Last administered on 09/05/17at 03:47; Start 09/05/17 at 03:30; Stop 09/05/17 at 03:31 ; Status DC Senna/Docusate Sodium (Moon-Colace) 1 tab BID PO ; Start 4/16/18 at 09:00 Sennosides (Senokot) 17.2 mg Q12H PRN PO Moderate constipation; Start 09/03/17 at 21:15 Sodium Chloride (NS Flush) 2 ml BID IV FLUSH Last administered on 09/05/17at 09: 29; Start 09/04/17 at 09:00 A/P Problem List: (1) Headache ICD Code: R51 - Headache (2) Dizziness ICD Code: R42 - Dizziness and giddiness (3) HTN (hypertension) ICD Code: I10 - Essential (primary) hypertension (4) Crohn's disease ICD Code: K50.90 - Crohn's disease, unspecified, without complications Assessment and Plan 1. Headache: CT Head w/ no acute abnormality. MRI brain with some demyelination in the white matter- neurology consult appreciated. 2. Dizziness: in combination w/ headache, blurry vision, and muscle weakness- neurology consult as noted above. 3. HTN: Uncontrolled. No h/o HTN, BP on arrival, >200 systolic, likely compounded by headache/pain complaints. one dose of Procardia today- will continue amlodipine and lisinopril- continue to monitor BP and adjust the regimen as needed. 4. Crohn's Disease: Stable, on Humira, no changes to medications. GI consult appreciated- f/u as outpatient. 5.hypokalemia; replaced. 6. DVT Prophylaxis: SCD/Teds Discharge Planning dc home tomorrow if BP better and cleared by neurology. Magnus Clark MD Sep 05, 2017 11:45
--- NOTE | 2017-09-05 11:48 | RADRPT ---
EXAM DATE/TIME: 09/05/2017 10:41 [facility] COMPARISON: No previous studies available for comparison. INDICATIONS : TIA. IV CONTRAST: 75 cc Omnipaque 350 (iohexol) IV ; Cumulative dose for multiple exams. RADIATION DOSE: 28.16 CTDIvol (mGy) ; Combined studies MEDICAL HISTORY : Hypertension. Crohns disease. SURGICAL HISTORY : Cholecystectomy. ENCOUNTER: Initial ACUITY: 1 day PAIN SCALE: 0/10 LOCATION: cranial TECHNIQUE: Volumetric scanning was performed using a multi-row detector CT scanner. The data was post processed with a variety of visualization algorithms including full volume maximum intensity projection, multi -planar sliding thin slab reformation, curved planar reformation, and surface rendering techniques. Using automated exposure control and adjustment of the mA and/or kV according to patient size, radiat ion dose was kept as low as reasonably achievable to obtain optimal diagnostic quality images. DICO M format image data is available electronically for review and comparison. FINDINGS: There is excellent visualization of the major intracranial arteries out to the second-order branch ve ssels. There is no evidence for aneurysm, vessel truncation or stenosis, and no evidence for vascular malfo rmation. CONCLUSION: Normal examination. No evidence of steno-occlusive disease, vasculopathy, aneurysm or vascular malformation. Shant Chiu MD on September 05, 2017 at 11:44 Board Certified Radiologist. This report was verified electronically.
--- NOTE | 2017-09-05 11:49 | RADRPT ---
EXAM DATE/TIME: 09/05/2017 10:41 [facility] COMPARISON: No previous studies available for comparison. INDICATIONS : TIA. IV CONTRAST: 75 cc Omnipaque 350 (iohexol) IV ; Cumulative dose for multiple exams. RADIATION DOSE: 28.16 CTDIvol (mGy) ; Combined studies MEDICAL HISTORY : Hypertension. Crohns disease. SURGICAL HISTORY : Cholecystectomy. ENCOUNTER: Initial ACUITY: 1 day PAIN SCALE: 0/10 LOCATION: neck Elevated flow velocities and ICA/CCA ratios have been found to correlate with increased degrees of vessel stenosis, calculated as percentage of diameter relative to a normal segment of distal ICA/CCA. TECHNIQUE: Volumetric scanning was performed using a multirow detector CT scanner. The data was post processed with a variety of visualization algorithms including full-volume maximum intensity projection, multip lanar sliding thin-slab reformation, curved-planar reformation, and surface-rendering techniques. Us ing automated exposure control and adjustment of the mA and/or kV according to patient size, radiatio n dose was kept as low as reasonably achievable to obtain optimal diagnostic quality images. DICOM f ormat image data is available electronically for review and comparison. FINDINGS: AORTIC ARCH: There is a three-vessel origin of the great vessels from the aorta. No evidence of ostial narrowing. RIGHT CAROTID: The common carotid artery is intact. The carotid bulb has a normal configuration without ulceration o r narrowing. The internal carotid artery lumen is smooth without stenosis. The external carotid joshua ry is intact. LEFT CAROTID: The common carotid artery is intact. The carotid bulb has a normal configuration without ulceration or narrowing. The internal carotid artery lumen is smooth without stenosis. The external carotid ar misty is intact. VERTEBRALS: The vertebral arteries have a symmetric diameter. No stenotic lesions are seen. CONCLUSION: Normal examination. No evidence of significant atherosclerotic vascular disease, stenosis or vascular injury. Shant Chiu MD on September 05, 2017 at 11:46 Board Certified Radiologist. This report was verified electronically.
[2017-09-05] MEDS ORDERED: PROMETHAZINE INJ 25 MG/ML VIAL IM ONE (15:00)
[2017-09-05] MEDS: POTASSIUM CHLOR 20 MEQ PREMIX 100 ML IV SCH ×2 (15:24→17:00)
[2017-09-05 16:44] LABS: BICARBONATE 19.2 MEQ/L (21.0-32.0); CALCIUM 8.9 MG/DL (8.5-10.1); CREATININE 0.54 MG/DL (0.60-1.30)
[2017-09-05] MEDS ORDERED: SODIUM CHLOR 0.9% 1000 ML INJ 1,000 ML IV ONE (17:30)
--- NOTE | 2017-09-05 20:42 | HHI.PR ---
Review/Management Daily Summary 09/05 seen this evening vague sx, nonspecific, not feeling well discussed neuro studies/negative will follow prn Subjective Subjective Comments No acute events reported No headache Active Medications Current Medications Medications (Trade) Dose Ordered Sig/Uma Route Start Time Stop Time Status Last Admin (NS Flush) 2 ml UNSCH PRN IV FLUSH 09/03/17 21:15 09/05/17 03:47 (NS Flush) 2 ml BID IV FLUSH 09/04/17 09:00 09/05/17 09:29 (Zofran Inj) 4 mg Q6H PRN IVP 09/03/17 21:15 09/05/17 09:31 (Tylenol) 650 mg Q6H PRN PO 09/03/17 21:15 ([place] 5-325 Mg) 1 tab Q4H PRN PO 09/03/17 21:15 (Morphine Inj) 2 mg Q3H PRN IV PUSH 09/03/17 21:15 09/04/17 16:34 (Moon-Colace) 1 tab BID PO 09/04/17 09:00 (Milk Of Magnesia Liq) 30 ml Q12H PRN PO 09/03/17 21:15 (Senokot) 17.2 mg Q12H PRN PO 09/03/17 21:15 (Dulcolax Supp) 10 mg DAILY PRN RECTAL 09/03/17 21:15 (Lactulose Liq) 30 ml DAILY PRN PO 09/03/17 21:15 (As[address]) 800 mg QID PO 09/04/17 09:00 09/05/17 13:04 (Singulair) 10 mg HS PO 09/04/17 21:00 09/04/17 21:20 (Protonix) 40 mg DAILY PO 09/04/17 09:00 09/05/17 09:30 Patient Own Medication PT OWN MED: UCERIS... DAILY PO 09/04/17 09:00 (Antivert) 25 mg Q8H PRN PO 09/03/17 21:15 (Catapres) 0.1 mg Q6H PRN PO 09/03/17 23:00 09/05/17 00:45 (Prinivil) 20 mg DAILY PO 09/04/17 09:00 09/05/17 09:30 (Norvasc) 10 mg DAILY PO 09/04/17 18:45 09/05/17 09:31 Potassium Chloride/Sodium Chloride 1,000 ml @ 100 mls/hr Q10H IV 09/05/17 18:30 Allergies Allergies Coded Allergies Sulfa (Sulfonamide Antibiotics) (Unverified Allergy, Severe, Diarrhea, 09/03/17 ) diclofenac (Unverified Allergy, Severe, Diarrhea, 09/03/17) etodolac (Unverified Allergy, Severe, Diarrhea, 09/03/17) flurbiprofen (Unverified Allergy, Severe, Diarrhea, 09/03/17) ibuprofen (Unverified Allergy, Severe, Diarrhea, 09/03/17) indomethacin (Unverified Allergy, Severe, Diarrhea, 09/03/17) ketoprofen (Unverified Allergy, Severe, Diarrhea, 09/03/17) ketorolac (Unverified Allergy, Severe, Diarrhea, 09/03/17) naproxen (Unverified Allergy, Severe, Diarrhea, 09/03/17) oxaprozin (Unverified Allergy, Severe, Diarrhea, 09/03/17) Uncoded Allergies ANTIBIOTICS ( Allergy, Severe, 10/04/16) Exam I&O / VS 09/05/17 09/05/17 09/06/17 15:00 23:00 07:00 # Bowel Movements 2 Vital Signs Date Time Temp Pulse Resp B/P (MAP) Pulse Ox O2 Delivery O2 Flow Rate FiO2 09/05/17 16:26 98.5 98 18 155/91 (112) 95 09/05/17 12:30 98.5 102 18 164/95 (118) 97 09/05/17 09:08 97.7 102 18 156/93 (114) 97 09/05/17 04:42 98.6 110 19 169/98 (121) 97 09/05/17 03:52 89 09/05/17 02:21 178/104 (128) 09/05/17 01:40 106 09/04/17 22:37 98.1 105 18 170/100 (123) 99 Objective Radiology Results Last 48 hours Impressions Neck CTA 09/05/17 0000 Signed Impressions: Service Date/Time: Tuesday, September 05, 2017 10:41 - CONCLUSION: Normal examination. No evidence of significant atherosclerotic vascular disease, stenosis or vascular injury. Shant Chiu MD Head CTA 09/05/17 0000 Signed Impressions: Service Date/Time: Tuesday, September 05, 2017 10:41 - CONCLUSION: Normal examination. No evidence of steno-occlusive disease, vasculopathy, aneurysm or vascular malformation. Shant Chiu MD Head Magnetic Resonance Angiography 09/04/17 0000 Signed Impressions: Service Date/Time: Monday, September 04, 2017 10:44 - CONCLUSION: 1. Small projection superiorly off the junction of the right M1 and M2 segments I believe represents a small infundibulum. However, it is difficult to identify the emanating vessel on the MRA. If there is a clinical concern, CTA with its higher spatial resolution could be performed for further characterization. 2. Otherwise, intracranial vessels are patent. 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 Yaya Laguerre MD Carotid Artery Ultrasound 09/04/17 0000 Signed Impressions: Service Date/Time: Monday, September 04, 2017 14:27 - CONCLUSION: Negative examination for a hemodynamically significant carotid stenosis. George Blackwood MD FACR Micro and Labs Laboratory Tests Test 09/05/17 12:45 09/05/17 15:26 Potassium Level 2.7 2.9 Blood Urea Nitrogen 9 Creatinine 0.54 Random Glucose 90 Calcium Level 8.9 Sodium Level 119 Chloride Level 86 Carbon Dioxide Level 19.2 Anion Gap 14 Estimat Glomerular Filtration Rate 155 Ramandeep Guajardo MD Sep 05, 2017 20:42
[2017-09-05] MEDS: MONTELUKAST SODIUM 10 MG TAB PO SCH (22:14)
[2017-09-05 23:55] LABS: BICARBONATE 20.8 MEQ/L (21.0-32.0); CALCIUM 8.6 MG/DL (8.5-10.1); CREATININE 0.66 MG/DL (0.60-1.30); MAGNESIUM 1.7 MG/DL (1.5-2.5)
[2017-09-06] VITALS (9 sets, daily range): BP systolic 110–124; BP diastolic 64–70; PULSE 84–93; RESP 15–18; TEMP 98.1–98.7; O2SAT 94–96
[2017-09-06] MEDS: NS + KCL 20 MEQ INJ 1,000 ML IV SCH ×3 (04:30→21:12)
[2017-09-06 07:51] LABS: BICARBONATE 19.9 MEQ/L (21.0-32.0); CALCIUM 8.3 MG/DL (8.5-10.1); CREATININE 0.67 MG/DL (0.60-1.30)
[2017-09-06] MEDS ORDERED: MAGNESIUM SULFATE 1 GM PREMIX 100 ML IV ONE (08:00)
[2017-09-06] MEDS: DOCUSATE SODIUM 50 MG/SENNA 8.6 MG TAB PO SCH ×2 (08:37→21:00)
[2017-09-06] MEDS: SODIUM CHLORIDE 0.9% FLUSH 10 ML FLUSH IV FLUSH SCH ×2 (08:37→21:00)
[2017-09-06] MEDS: UCERIS 9 MG PO SCH (08:37)
[2017-09-06] MEDS: MESALAMINE HD 800 MG DELAYED RELEASE TAB PO SCH ×4 (08:37→21:12)
[2017-09-06] MEDS: PANTOPRAZOLE SOD 40 MG DELAYED RELEASE TAB PO SCH (08:38)
[2017-09-06] MEDS: LISINOPRIL 20 MG TAB PO SCH (08:39)
--- NOTE | 2017-09-06 10:33 | HHI.PR ---
Subjective Remarks feeling better today. no nausea or vomiting today. had a few loose non-bloody BM last night. Objective Vitals Vital Signs Date Time Temp Pulse Resp B/P (MAP) Pulse Ox O2 Delivery O2 Flow Rate FiO2 09/06/17 08:39 98.4 93 18 111/67 (82) 96 09/06/17 04:34 85 15 115/67 (83) 94 09/06/17 02:45 86 09/05/17 22:18 98.8 119 18 133/76 (95) 95 09/05/17 16:26 98.5 98 18 155/91 (112) 95 09/05/17 12:30 98.5 102 18 164/95 (118) 97 I/O 09/05/17 09/05/17 09/05/17 09/06/17 09/06/17 09/06/17 07:00 15:00 23:00 07:00 15:00 23:00 Intake Total 200 ml 1000 ml 100 ml Balance 200 ml 1000 ml 100 ml IV Total 200 ml 1000 ml 100 ml # Bowel Movements 2 Result Diagram: 09/04/17 0710 09/06/17 0618 Imaging Last Impressions Neck CTA 09/05/17 0000 Signed Impressions: Service Date/Time: Tuesday, September 05, 2017 10:41 - CONCLUSION: Normal examination. No evidence of significant atherosclerotic vascular disease, stenosis or vascular injury. Shant Chiu MD Head CTA 09/05/17 0000 Signed Impressions: Service Date/Time: Tuesday, September 05, 2017 10:41 - CONCLUSION: Normal examination. No evidence of steno-occlusive disease, vasculopathy, aneurysm or vascular malformation. Shant Chiu MD Head Magnetic Resonance Angiography 09/04/17 0000 Signed Impressions: Service Date/Time: Monday, September 04, 2017 10:44 - CONCLUSION: 1. Small projection superiorly off the junction of the right M1 and M2 segments I believe represents a small infundibulum. However, it is difficult to identify the emanating vessel on the MRA. If there is a clinical concern, CTA with its higher spatial resolution could be performed for further characterization. 2. Otherwise, intracranial vessels are patent. 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 Yaya Laguerre MD Carotid Artery Ultrasound 09/04/17 0000 Signed Impressions: Service Date/Time: Monday, September 04, 2017 14:27 - CONCLUSION: Negative examination for a hemodynamically significant carotid stenosis. George Blackwood MD FACR Head CT 09/03/17 1826 Signed Impressions: Service Date/Time: Sunday, September 03, 2017 18:47 - CONCLUSION: No acute disease. Reno Kaufman MD Brain MRI 09/03/17 0000 Signed Impressions: Service Date/Time: Sunday, September 03, 2017 21:25 - CONCLUSION: 1. No acute abnormality is seen. 2. Mild areas of demyelination in the periventricular white matter. Reno Kaufman MD Objective Remarks GENERAL: This is a well-nourished, well-developed patient, in no apparent distress. CARDIOVASCULAR: Regular rate and regular rhythm without murmurs, gallops, or rubs. RESPIRATORY: Clear to auscultation. Breath sounds equal bilaterally. No wheezes , rales, or rhonchi. GASTROINTESTINAL: Abdomen soft, non-tender, nondistended. Normal, active bowel sounds MUSCULOSKELETAL: Extremities without clubbing, cyanosis, or edema. NEURO: Alert & Oriented x4 to person, place, time, situation. Moves all ext x4 Procedures none Medications and IVs Inpatient Medications Acetaminophen (Tylenol) 650 mg Q6H PRN PO FEVER/PAIN SCALE 1 TO 2; Start at 21:15 Acetaminophen/ Hydrocodone Bitart ([place] 5-325 Mg) 1 tab Q4H PRN PO PAIN SCALE 3 TO 5; Start 09/03/17 at 21:15 Amlodipine Besylate (Norvasc) 10 mg DAILY PO Last administered on 09/06/17at 08: 39; Start 09/04/17 at 18:45 Bisacodyl (Dulcolax Supp) 10 mg DAILY PRN RECTAL SEVERE CONSITIPATION/ IF NPO ; Start 09/03/17 at 21:15 Clonidine (Catapres) 0.1 mg ONCE ONCE PO Last administered on 09/05/17at 02:33 ; Start 09/05/17 at 02:30; Stop 09/05/17 at 02:31; Status DC Lactulose (Lactulose Liq) 30 ml ONCE ONCE PO ; Start 09/04/17 at 18:45; Stop at 19:15; Status DC Lisinopril (Prinivil) 20 mg DAILY PO Last administered on 09/06/17at 08:39; Start 09/04/17 at 09:00 Lorazepam (Ativan) 0.5 mg ONCE ONCE PO Last administered on 09/04/17at 21:20; Start 09/04/17 at 21:15; Stop 09/04/17 at 21:16; Status DC Magnesium Hydroxide (Milk Of Magnesia Liq) 30 ml Q12H PRN PO Mild constipation ; Start 09/03/17 at 21:15 Magnesium Sulfate/ Dextrose 100 ml @ 100 mls/hr ONCE ONCE IV Last administered on 09/06/17at 08:35; Start 09/06/17 at 08:00; Stop 09/06/17 at 08:59 ; Status DC Meclizine HCl (Antivert) 25 mg Q8H PRN PO DIZZINESS; Start 09/03/17 at 21:15 Mesalamine (Asacol Hd Dr) 800 mg QID PO Last administered on 09/06/17at 08:37; Start 09/04/17 at 09:00 Metoprolol Tartrate (Lopressor Inj) 5 mg ONCE ONCE IV PUSH Last administered on 09/03/17at 21:06; Start 09/03/17 at 21:15; Stop 09/03/17 at 21:16; Status DC Montelukast Sodium (Singulair) 10 mg HS PO Last administered on 09/04/17at 21:20 ; Start 09/04/17 at 21:00 Morphine Sulfate (Morphine Inj) 2 mg Q3H PRN IV PUSH Pain 6-10 Last administered on 09/04/17at 16:34; Start 09/03/17 at 21:15 Nifedipine (Procardia Xl) 30 mg ONCE ONCE PO Last administered on 09/05/17at 13 :03; Start 09/05/17 at 11:45; Stop 09/05/17 at 11:50; Status DC Ondansetron HCl (Zofran Inj) 4 mg Q6H PRN IVP NAUSEA OR VOMITING Last administered on 09/05/17at 09:31; Start 09/03/17 at 21:15 Pantoprazole Sodium (Protonix) 40 mg DAILY PO Last administered on 09/06/17at 08 :38; Start 09/04/17 at 09:00 Patient Own Medication PT OWN MED: UCERIS... DAILY PO Last administered on 09/06at 08:37; Start 09/04/17 at 09:00 Potassium Chloride/Sodium Chloride 1,000 ml @ 100 mls/hr Q10H IV Last administered on 09/05/17at 00:30; Start 09/05/17 at 18:30 Potassium Chloride 100 ml @ 50 mls/hr Q2H IV Last administered on 09/05/17at 17 :00; Start 09/05/17 at 15:00; Stop 09/05/17 at 18:59; Status DC Potassium Chloride (KCl) 30 meq ONCE ONCE PO Last administered on 09/04/17at 13 :03; Start 09/04/17 at 14:00; Stop 09/04/17 at 14:01; Status DC Prochlorperazine Edisylate (Compazine Inj) 5 mg ONCE ONCE IV PUSH Last administered on 09/05/17at 03:47; Start 09/05/17 at 03:30; Stop 09/05/17 at 03:31 ; Status DC Promethazine HCl (Phenergan Inj) 25 mg ONCE ONCE IM Last administered on at 15:23; Start 09/05/17 at 15:00; Stop 09/05/17 at 15:01; Status DC Senna/Docusate Sodium (Moon-Colace) 1 tab BID PO ; Start 09/04/17 at 09:00 Sennosides (Senokot) 17.2 mg Q12H PRN PO Moderate constipation; Start 09/03/17 at 21:15 Sodium Chloride 1,000 ml @ 999 mls/hr BOLUS ONCE IV Last administered on 09/05at 21:57; Start 09/05/17 at 17:30; Stop 09/05/17 at 18:30; Status DC Sodium Chloride (NS Flush) 2 ml BID IV FLUSH Last administered on 09/05/17at 09: 29; Start 09/04/17 at 09:00 A/P Problem List: (1) Headache ICD Code: R51 - Headache (2) Dizziness ICD Code: R42 - Dizziness and giddiness (3) HTN (hypertension) ICD Code: I10 - Essential (primary) hypertension (4) Crohn's disease ICD Code: K50.90 - Crohn's disease, unspecified, without complications Assessment and Plan 1. Headache- better. CT Head w/ no acute abnormality. MRI brain with some demyelination in the white matter- neurology f/u appreciated. 2. Dizziness: in combination w/ headache, blurry vision, and muscle weakness- better- neurology consult as noted above. 3. HTN: improved. No h/o HTN, BP on arrival, >200 systolic, likely compounded by headache/pain complaints. received one dose of procardia yesterday- will continue amlodipine and lisinopril- continue to monitor BP and adjust the regimen as needed. 4. Crohn's Disease: Stable, on Humira, no changes to medications. GI consult appreciated- f/u as outpatient. 5.hyponatremia; improving- continue IV fluid and monitor sodium level. 6.hypokalemia; replaced. 7. DVT Prophylaxis: SCD/Teds Discharge Planning dc home within the next one-two days when sodium level has improved. Magnus Clark MD Sep 06, 2017 10:33
[2017-09-06] MEDS: ACETAMINOPHEN 325 MG TAB PO PRN ×2 (12:18→18:18)
[2017-09-06] MEDS: MONTELUKAST SODIUM 10 MG TAB PO SCH (21:12)
[2017-09-07] VITALS (11 sets, daily range): BP systolic 128–153; BP diastolic 72–82; PULSE 87–138; RESP 16–18; TEMP 97.7–98.9; O2SAT 94–98
[2017-09-07 00:04] LABS: BICARBONATE 18.4 MEQ/L (21.0-32.0); CALCIUM 8.5 MG/DL (8.5-10.1); CREATININE 0.73 MG/DL (0.60-1.30)
[2017-09-07] MEDS: ACETAMINOPHEN 325 MG TAB PO PRN (01:16)
[2017-09-07] MEDS: DOCUSATE SODIUM 50 MG/SENNA 8.6 MG TAB PO SCH ×2 (09:00→21:00)
[2017-09-07] MEDS: NS + KCL 20 MEQ INJ 1,000 ML IV SCH ×2 (09:27→21:32)
[2017-09-07] MEDS: LISINOPRIL 20 MG TAB PO SCH (09:28)
[2017-09-07] MEDS: PANTOPRAZOLE SOD 40 MG DELAYED RELEASE TAB PO SCH (09:28)
[2017-09-07] MEDS: MESALAMINE HD 800 MG DELAYED RELEASE TAB PO SCH ×4 (09:29→21:35)
[2017-09-07] MEDS: UCERIS 9 MG PO SCH (09:29)
[2017-09-07] MEDS: SODIUM CHLORIDE 0.9% FLUSH 10 ML FLUSH IV FLUSH SCH ×2 (09:29→21:00)
[2017-09-07] MEDS ORDERED: AMLO10 PO (09:50)
[2017-09-07] MEDS ORDERED: LISI-515 PO (09:50)
--- NOTE | 2017-09-07 09:50 | HHI.PR ---
Subjective Remarks in no acute distress. looks and feels better and stronger today. no pain. Objective Vitals Vital Signs Date Time Temp Pulse Resp B/P (MAP) Pulse Ox O2 Delivery O2 Flow Rate FiO2 09/07/17 09:18 97.7 107 18 153/82 (105) 96 09/07/17 04:37 98.4 98 17 134/74 (94) 94 09/07/17 00:22 98.4 101 17 128/72 (90) 95 09/07/17 00:00 95 09/06/17 21:56 98.1 93 17 124/70 (88) 95 09/06/17 16:03 98.7 90 18 110/64 (79) 95 09/06/17 16:00 85 09/06/17 12:22 98.6 93 18 123/69 (87) 95 09/06/17 12:00 91 I/O 09/06/17 09/06/17 09/06/17 09/07/17 09/07/17 09/07/17 07:00 15:00 23:00 07:00 15:00 23:00 Intake Total 1000 ml 1100 ml 1000 ml Balance 1000 ml 1100 ml 1000 ml IV Total 1000 ml 1100 ml 1000 ml Result Diagram: 09/04/17 0710 09/06/17 2228 Imaging Last Impressions Neck CTA 09/05/17 0000 Signed Impressions: Service Date/Time: Tuesday, September 05, 2017 10:41 - CONCLUSION: Normal examination. No evidence of significant atherosclerotic vascular disease, stenosis or vascular injury. Shant Chiu MD Head CTA 09/05/17 0000 Signed Impressions: Service Date/Time: Tuesday, September 05, 2017 10:41 - CONCLUSION: Normal examination. No evidence of steno-occlusive disease, vasculopathy, aneurysm or vascular malformation. Shant Chiu MD Head Magnetic Resonance Angiography 09/04/17 0000 Signed Impressions: Service Date/Time: Monday, September 04, 2017 10:44 - CONCLUSION: 1. Small projection superiorly off the junction of the right M1 and M2 segments I believe represents a small infundibulum. However, it is difficult to identify the emanating vessel on the MRA. If there is a clinical concern, CTA with its higher spatial resolution could be performed for further characterization. 2. Otherwise, intracranial vessels are patent. 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 Yaya Laguerre MD Carotid Artery Ultrasound 09/04/17 0000 Signed Impressions: Service Date/Time: Monday, September 04, 2017 14:27 - CONCLUSION: Negative examination for a hemodynamically significant carotid stenosis. George Blackwood MD FACR Head CT 09/03/17 1826 Signed Impressions: Service Date/Time: Sunday, September 03, 2017 18:47 - CONCLUSION: No acute disease. Reno Kaufman MD Brain MRI 09/03/17 0000 Signed Impressions: Service Date/Time: Sunday, September 03, 2017 21:25 - CONCLUSION: 1. No acute abnormality is seen. 2. Mild areas of demyelination in the periventricular white matter. Reno Kaufman MD Objective Remarks GENERAL: This is a well-nourished, well-developed patient, in no apparent distress. CARDIOVASCULAR: Regular rate and regular rhythm without murmurs, gallops, or rubs. RESPIRATORY: Clear to auscultation. Breath sounds equal bilaterally. No wheezes , rales, or rhonchi. GASTROINTESTINAL: Abdomen soft, non-tender, nondistended. Normal, active bowel sounds MUSCULOSKELETAL: Extremities without clubbing, cyanosis, or edema. NEURO: Alert & Oriented x4 to person, place, time, situation. Moves all ext x4 Procedures none Medications and IVs Inpatient Medications Acetaminophen (Tylenol) 650 mg Q6H PRN PO FEVER/PAIN SCALE 1 TO 2 Last administered on 09/07/17at 01:16; Start 09/03/17 at 21:15 Acetaminophen/ Hydrocodone Bitart ([place] 5-325 Mg) 1 tab Q4H PRN PO PAIN SCALE 3 TO 5; Start 09/03/17 at 21:15 Amlodipine Besylate (Norvasc) 10 mg DAILY PO Last administered on 09/07/17at 09: 28; Start 09/04/17 at 18:45 Bisacodyl (Dulcolax Supp) 10 mg DAILY PRN RECTAL SEVERE CONSITIPATION/ IF NPO ; Start 09/03/17 at 21:15 Clonidine (Catapres) 0.1 mg ONCE ONCE PO Last administered on 09/05/17at 02:33 ; Start 09/05/17 at 02:30; Stop 09/05/17 at 02:31; Status DC Lactulose (Lactulose Liq) 30 ml ONCE ONCE PO ; Start 09/04/17 at 18:45; Stop at 19:15; Status DC Lisinopril (Prinivil) 20 mg DAILY PO Last administered on 09/07/17at 09:28; Start 09/04/17 at 09:00 Lorazepam (Ativan) 0.5 mg ONCE ONCE PO Last administered on 09/04/17at 21:20; Start 09/04/17 at 21:15; Stop 09/04/17 at 21:16; Status DC Magnesium Hydroxide (Milk Of Magnesia Liq) 30 ml Q12H PRN PO Mild constipation ; Start 09/03/17 at 21:15 Magnesium Sulfate/ Dextrose 100 ml @ 100 mls/hr ONCE ONCE IV Last administered on 09/06/17at 08:35; Start 09/06/17 at 08:00; Stop 09/06/17 at 08:59 ; Status DC Meclizine HCl (Antivert) 25 mg Q8H PRN PO DIZZINESS; Start 09/03/17 at 21:15 Mesalamine (Asacol Hd Dr) 800 mg QID PO Last administered on 09/07/17at 09:29; Start 09/04/17 at 09:00 Metoprolol Tartrate (Lopressor Inj) 5 mg ONCE ONCE IV PUSH Last administered on 09/03/17at 21:06; Start 09/03/17 at 21:15; Stop 09/03/17 at 21:16; Status DC Montelukast Sodium (Singulair) 10 mg HS PO Last administered on 09/06/17at 21:12 ; Start 09/04/17 at 21:00 Morphine Sulfate (Morphine Inj) 2 mg Q3H PRN IV PUSH Pain 6-10 Last administered on 09/04/17 16:34; Start 09/03/17 at 21:15 Nifedipine (Procardia Xl) 30 mg ONCE ONCE PO Last administered on 09/05/17at 13 :03; Start 09/05/17 at 11:45; Stop 09/05/17 at 11:50; Status DC Ondansetron HCl (Zofran Inj) 4 mg Q6H PRN IVP NAUSEA OR VOMITING Last administered on 09/05/17at 09:31; Start 09/03/17 at 21:15 Pantoprazole Sodium (Protonix) 40 mg DAILY PO Last administered on 09/07/17at 09 :28; Start 09/04/17 at 09:00 Patient Own Medication PT OWN MED: UCERIS... DAILY PO Last administered on 09/07at 09:29; Start 09/04/17 at 09:00 Potassium Chloride/Sodium Chloride 1,000 ml @ 100 mls/hr Q10H IV Last administered on 09/07/17at 09:27; Start 09/05/17 at 18:30 Potassium Chloride 100 ml @ 50 mls/hr Q2H IV Last administered on 09/05/17at 17 :00; Start 09/05/17 at 15:00; Stop 09/05/17 at 18:59; Status DC Potassium Chloride (KCl) 30 meq ONCE ONCE PO Last administered on 09/04/17at 13 :03; Start 09/04/17 at 14:00; Stop 09/04/17 at 14:01; Status DC Prochlorperazine Edisylate (Compazine Inj) 5 mg ONCE ONCE IV PUSH Last administered on 09/05/17at 03:47; Start 09/05/17 at 03:30; Stop 09/05/17 at 03:31 ; Status DC Promethazine HCl (Phenergan Inj) 25 mg ONCE ONCE IM Last administered on at 15:23; Start 09/05/17 at 15:00; Stop 09/05/17 at 15:01; Status DC Senna/Docusate Sodium (Moon-Colace) 1 tab BID PO ; Start 09/04/17 at 09:00 Sennosides (Senokot) 17.2 mg Q12H PRN PO Moderate constipation; Start 09/03/17 at 21:15 Sodium Chloride 1,000 ml @ 999 mls/hr BOLUS ONCE IV Last administered on 09/05at 21:57; Start 09/05/17 at 17:30; Stop 09/05/17 at 18:30; Status DC Sodium Chloride (NS Flush) 2 ml BID IV FLUSH Last administered on 09/05/17at 09: 29; Start 09/04/17 at 09:00 A/P Problem List: (1) Headache ICD Code: R51 - Headache (2) Dizziness ICD Code: R42 - Dizziness and giddiness (3) HTN (hypertension) ICD Code: I10 - Essential (primary) hypertension (4) Crohn's disease ICD Code: K50.90 - Crohn's disease, unspecified, without complications Assessment and Plan 1. Headache- better. CT Head w/ no acute abnormality. MRI brain with some demyelination in the white matter- neurology f/u appreciated. 2. Dizziness: in combination w/ headache, blurry vision, and muscle weakness- better- neurology consult as noted above. 3. HTN: improved. No h/o HTN, BP on arrival, >200 systolic, likely compounded by headache/pain complaints. - will continue amlodipine and lisinopril- continue to monitor BP and adjust the regimen as needed. 4. Crohn's Disease: Stable, on Humira, no changes to medications. GI consult appreciated- f/u as outpatient. 5.hyponatremia; improving- continue IV fluid and monitor sodium level; repeat BMP today. 6.hypokalemia; replaced. 7. DVT Prophylaxis: SCD/Teds Discharge Planning dc home later today- pending BMP. f/u; pcp, GI and neurology. see med list. d/w the patient. Magnus Clark MD Sep 07, 2017 09:50
--- NOTE | 2017-09-07 09:51 | HHI.DCPOC ---
Discharge Care Plan Diagnosis: (1) HTN (hypertension) (2) Headache (3) Dizziness (4) Hyponatremia (5) Hypokalemia Goals to Promote Your Health * To prevent worsening of your condition and complications * To maintain your health at the optimal level Directions to Meet Your Goals Take your medications as prescribed Follow your dietary instruction Follow activity as directed Keep your appointments as scheduled Take your immunizations and boosters as scheduled If your symptoms worsen call your PCP, if no PCP go to Urgent Care Center or Emergency Room Smoking is Dangerous to Your Health. Avoid second hand smoke Call the 24-hour hour crisis hotline for domestic abuse at Bethany Wells PA-C Sep 07, 2017 09:51
--- NOTE | 2017-09-07 09:51 | HHI.DS ---
Discharge Summary Admission Date Sep 06, 2017 at 07:57 Discharge Date: Sep 07, 2017 Admitting Diagnosis TIA (1) Headache ICD Code: R51 - Headache Diagnosis: Principal (2) Dizziness ICD Code: R42 - Dizziness and giddiness Diagnosis: Principal (3) HTN (hypertension) ICD Code: I10 - Essential (primary) hypertension Diagnosis: Secondary (4) Crohn's disease ICD Code: K50.90 - Crohn's disease, unspecified, without complications Diagnosis: Secondary Procedures none Brief History - From Admission This is a 62-year-old male with a PMH of Crohn's Disease who presented to the ER with complaints of dizziness, headache, blurry vision and muscle aches in bilateral legs. States dizziness has been ongoing for approx 2-3wks, which he attributed to nasal congestion/sinus pressure from high pollen levels. Today, w / severe right frontal headache and associated blurry vision. Denies fever, chills, recent viral illness, no motor weakness/deficits, no h/o similar symptoms. On Humira for h/o Crohn's Disease w/ no change to meds. On arrival, BP 200/109, HR 96, O2 sat 99% RA, Afebrile. CBC unremarkable. Chemistry unremarkable. Troponin negative. INR 1.0. UA negative. CT Head with no acute findings. S/p Morphine in ER for headache w/ mild improvement, BP 180's CBC/BMP: 09/04/17 0710 09/06/17 2228 Significant Findings Laboratory Tests Test 09/05/17 12:45 09/05/17 15:26 09/05/17 23:11 09/06/17 06:18 Potassium Level 2.7 MEQ/L (3.5-5.1) 2.9 MEQ/L (3.5-5.1) 3.3 MEQ/L (3.5-5.1) Creatinine 0.54 MG/DL (0.60-1.30) Sodium Level 119 MEQ/L (136-145) 121 MEQ/L (136-145) 124 MEQ/L (136-145) Chloride Level 86 MEQ/L (98-107) 87 MEQ/L (98-107) 93 MEQ/L (98-107) Carbon Dioxide Level 19.2 MEQ/L (21.0-32.0) 20.8 MEQ/L (21.0-32.0) 19.9 MEQ/L (21.0-32.0) Random Glucose 112 MG/DL (74-106) Calcium Level 8.3 MG/DL (8.5-10.1) Test 09/06/17 14:44 09/06/17 22:28 Sodium Level 125 MEQ/L (136-145) 133 MEQ/L (136-145) Random Glucose 121 MG/DL (74-106) Carbon Dioxide Level 18.4 MEQ/L (21.0-32.0) Imaging Last Impressions Neck CTA 09/05/17 0000 Signed Impressions: Service Date/Time: Tuesday, September 05, 2017 10:41 - CONCLUSION: Normal examination. No evidence of significant atherosclerotic vascular disease, stenosis or vascular injury. Shant Chiu MD Head CTA 09/05/17 0000 Signed Impressions: Service Date/Time: Tuesday, September 05, 2017 10:41 - CONCLUSION: Normal examination. No evidence of steno-occlusive disease, vasculopathy, aneurysm or vascular malformation. Shant Chiu MD Head Magnetic Resonance Angiography 09/04/17 0000 Signed Impressions: Service Date/Time: Monday, September 04, 2017 10:44 - CONCLUSION: 1. Small projection superiorly off the junction of the right M1 and M2 segments I believe represents a small infundibulum. However, it is difficult to identify the emanating vessel on the MRA. If there is a clinical concern, CTA with its higher spatial resolution could be performed for further characterization. 2. Otherwise, intracranial vessels are patent. 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 Yaya Laguerre MD Carotid Artery Ultrasound 09/04/17 0000 Signed Impressions: Service Date/Time: Monday, September 04, 2017 14:27 - CONCLUSION: Negative examination for a hemodynamically significant carotid stenosis. George Blackwood MD FACR Head CT 09/03/17 1826 Signed Impressions: Service Date/Time: Sunday, September 03, 2017 18:47 - CONCLUSION: No acute disease. Reno Kaufman MD Brain MRI 09/03/17 0000 Signed Impressions: Service Date/Time: Sunday, September 03, 2017 21:25 - CONCLUSION: 1. No acute abnormality is seen. 2. Mild areas of demyelination in the periventricular white matter. Reno Kaufman MD PE at Discharge GENERAL: This is a well-nourished, well-developed patient, in no apparent distress. CARDIOVASCULAR: Regular rate and regular rhythm without murmurs, gallops, or rubs. RESPIRATORY: Clear to auscultation. Breath sounds equal bilaterally. No wheezes , rales, or rhonchi. GASTROINTESTINAL: Abdomen soft, non-tender, nondistended. Normal, active bowel sounds MUSCULOSKELETAL: Extremities without clubbing, cyanosis, or edema. NEURO: Alert & Oriented x4 to person, place, time, situation. Moves all ext x4 Hospital Course 1. Headache- better. CT Head w/ no acute abnormality. MRI brain with some demyelination in the white matter- neurology f/u appreciated. 2. Dizziness: in combination w/ headache, blurry vision, and muscle weakness- better- neurology consult as noted above. 3. HTN: improved. No h/o HTN, BP on arrival, >200 systolic, likely compounded by headache/pain complaints. - will continue amlodipine and lisinopril- continue to monitor BP and adjust the regimen as needed. 4. Crohn's Disease: Stable, on Humira, no changes to medications. GI consult appreciated- f/u as outpatient. 5.hyponatremia; improving- continue IV fluid and monitor sodium level; repeat BMP today. 6.hypokalemia; replaced. 7. DVT Prophylaxis: SCD/Teds Pt Condition on Discharge: Stable Discharge Disposition: Discharge Home Discharge Time: <= 30 minutes Discharge Instructions DIET: Follow Instructions for: Heart Healthy Diet Activities you can perform: Regular-No Restrictions Magnus Clark MD Sep 07, 2017 09:51
[2017-09-07 11:07] LABS: BICARBONATE 22.5 MEQ/L (21.0-32.0); CREATININE 0.81 MG/DL (0.60-1.30)
[2017-09-07] MEDS ORDERED: METOPROLOL TARTRATE 25 MG TAB PO ONE (11:45)
[2017-09-07] MEDS ORDERED: HUMI40KI SQ (12:54)
--- NOTE | 2017-09-07 13:34 | EKG ---
Date Performed: 09/07/2017 Time Performed: 10:33:59 PTAGE: 62 years EKG: SINUS TACHYCARDIA POSSIBLE RIGHT VENTRICULAR CONDUCTION DELAY SEPTAL MYOCARDIAL INFARCTION ABNORMAL ECG Since the PREVIOUS TRACING , no significant change noted PREVIOUS TRACIN09/03/2017 18.15 DOCTOR: Lenard Murphy Interpretating Date/Time 09/07/2017 13:32:48
[2017-09-07] MEDS: MONTELUKAST SODIUM 10 MG TAB PO SCH (21:36)
[2017-09-07] MEDS: METOPROLOL TARTRATE 25 MG TAB PO SCH (21:36)
[2017-09-08 01:00] VITALS: PULSE 71
[2017-09-08 01:05] VITALS: BP 147/84; PULSE 88; RESP 16; TEMP 98.4; O2SAT 96
[2017-09-08 04:43] VITALS: BP 158/85; PULSE 77; RESP 18; TEMP 98.2; O2SAT 95
[2017-09-08] MEDS: NS + KCL 20 MEQ INJ 1,000 ML IV SCH (06:30)
[2017-09-08 07:38] VITALS: BP 158/86; PULSE 92; RESP 20; TEMP 98.2; O2SAT 96
[2017-09-08] MEDS: PANTOPRAZOLE SOD 40 MG DELAYED RELEASE TAB PO SCH (09:00)
[2017-09-08] MEDS: SODIUM CHLORIDE 0.9% FLUSH 10 ML FLUSH IV FLUSH SCH (09:00)
[2017-09-08] MEDS: DOCUSATE SODIUM 50 MG/SENNA 8.6 MG TAB PO SCH (09:00)
--- NOTE | 2017-09-08 09:20 | HHI.PR ---
Subjective Remarks in no acute distress. no chest pain, sob, dizziness. no new complaints. Objective Vitals Vital Signs Date Time Temp Pulse Resp B/P (MAP) Pulse Ox O2 Delivery O2 Flow Rate FiO2 09/08/17 07:38 98.2 92 20 158/86 (110) 96 09/08/17 04:43 98.2 77 18 158/85 (109) 95 09/08/17 01:05 98.4 88 16 147/84 (105) 96 09/08/17 01:00 71 09/07/17 20:35 98.9 94 16 145/81 (102) 95 09/07/17 16:32 98.9 94 18 138/75 (96) 96 09/07/17 16:15 87 09/07/17 12:35 100 09/07/17 12:22 98.3 102 18 139/81 (100) 98 09/07/17 10:15 138 09/07/17 09:18 97.7 107 18 153/82 (105) 96 I/O 09/07/17 09/07/17 09/07/17 09/08/17 09/08/17 09/08/17 07:00 15:00 23:00 07:00 15:00 23:00 Intake Total 1000 ml Balance 1000 ml IV Total 1000 ml # Voids 4 Result Diagram: 09/04/17 0710 09/07/17 1025 Imaging Last Impressions Neck CTA 09/05/17 0000 Signed Impressions: Service Date/Time: Tuesday, September 05, 2017 10:41 - CONCLUSION: Normal examination. No evidence of significant atherosclerotic vascular disease, stenosis or vascular injury. Shant Chiu MD Head CTA 09/05/17 0000 Signed Impressions: Service Date/Time: Tuesday, September 05, 2017 10:41 - CONCLUSION: Normal examination. No evidence of steno-occlusive disease, vasculopathy, aneurysm or vascular malformation. Shant Chiu MD Head Magnetic Resonance Angiography 09/04/17 0000 Signed Impressions: Service Date/Time: Monday, September 04, 2017 10:44 - CONCLUSION: 1. Small projection superiorly off the junction of the right M1 and M2 segments I believe represents a small infundibulum. However, it is difficult to identify the emanating vessel on the MRA. If there is a clinical concern, CTA with its higher spatial resolution could be performed for further characterization. 2. Otherwise, intracranial vessels are patent. 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 Yaya Laguerre MD Carotid Artery Ultrasound 09/04/17 0000 Signed Impressions: Service Date/Time: Monday, September 04, 2017 14:27 - CONCLUSION: Negative examination for a hemodynamically significant carotid stenosis. George Blackwood MD FACR Head CT 09/03/17 1826 Signed Impressions: Service Date/Time: Sunday, September 03, 2017 18:47 - CONCLUSION: No acute disease. Reno Kaufman MD Brain MRI 09/03/17 0000 Signed Impressions: Service Date/Time: Sunday, September 03, 2017 21:25 - CONCLUSION: 1. No acute abnormality is seen. 2. Mild areas of demyelination in the periventricular white matter. Reno Kaufman MD Objective Remarks GENERAL: This is a well-nourished, well-developed patient, in no apparent distress. CARDIOVASCULAR: Regular rate and regular rhythm without murmurs, gallops, or rubs. RESPIRATORY: Clear to auscultation. Breath sounds equal bilaterally. No wheezes , rales, or rhonchi. GASTROINTESTINAL: Abdomen soft, non-tender, nondistended. Normal, active bowel sounds MUSCULOSKELETAL: Extremities without clubbing, cyanosis, or edema. NEURO: Alert & Oriented x4 to person, place, time, situation. Moves all ext x4 Procedures none Medications and IVs Inpatient Medications Acetaminophen (Tylenol) 650 mg Q6H PRN PO FEVER/PAIN SCALE 1 TO 2 Last administered on 09/07/17at 01:16; Start 09/03/17 at 21:15 Acetaminophen/ Hydrocodone Bitart ([place] 5-325 Mg) 1 tab Q4H PRN PO PAIN SCALE 3 TO 5; Start 09/03/17 at 21:15 Amlodipine Besylate (Norvasc) 10 mg DAILY PO Last administered on 09/07/17at 09: 28; Start 09/04/17 at 18:45 Bisacodyl (Dulcolax Supp) 10 mg DAILY PRN RECTAL SEVERE CONSITIPATION/ IF NPO ; Start 09/03/17 at 21:15 Clonidine (Catapres) 0.1 mg ONCE ONCE PO Last administered on 09/05/17at 02:33 ; Start 09/05/17 at 02:30; Stop 09/05/17 at 02:31; Status DC Lactulose (Lactulose Liq) 30 ml ONCE ONCE PO ; Start 09/04/17 at 18:45; Stop at 19:15; Status DC Lisinopril (Prinivil) 20 mg DAILY PO Last administered on 09/07/17at 09:28; Start 09/04/17 at 09:00; Status Future Hold Lorazepam (Ativan) 0.5 mg ONCE ONCE PO Last administered on 09/04/17at 21:20; Start 09/04/17 at 21:15; Stop 09/04/17 at 21:16; Status DC Magnesium Hydroxide (Milk Of Magnesia Liq) 30 ml Q12H PRN PO Mild constipation ; Start 09/03/17 at 21:15 Magnesium Sulfate/ Dextrose 100 ml @ 100 mls/hr ONCE ONCE IV Last administered on 09/06/17at 08:35; Start 09/06/17 at 08:00; Stop 09/06/17 at 08:59 ; Status DC Meclizine HCl (Antivert) 25 mg Q8H PRN PO DIZZINESS; Start 09/03/17 at 21:15 Mesalamine (Asacol Hd Dr) 800 mg QID PO Last administered on 09/07/17at 21:35; Start 09/04/17 at 09:00 Metoprolol Tartrate (Lopressor Inj) 5 mg ONCE ONCE IV PUSH Last administered on 09/03/17at 21:06; Start 09/03/17 at 21:15; Stop 09/03/17 at 21:16; Status DC Metoprolol Tartrate (Lopressor) 25 mg Q12HR PO Last administered on 09/07/17at 21:36; Start 09/07/17 at 21:00 Montelukast Sodium (Singulair) 10 mg HS PO Last administered on 09/07/17at 21:36 ; Start 09/04/17 at 21:00 Morphine Sulfate (Morphine Inj) 2 mg Q3H PRN IV PUSH Pain 6-10 Last administered on 09/04/17at 16:34; Start 09/03/17 at 21:15 Nifedipine (Procardia Xl) 30 mg ONCE ONCE PO Last administered on 09/05/17at 13 :03; Start 09/05/17 at 11:45; Stop 09/05/17 at 11:50; Status DC Ondansetron HCl (Zofran Inj) 4 mg Q6H PRN IVP NAUSEA OR VOMITING Last administered on 09/05/17at 09:31; Start 09/03/17 at 21:15 Pantoprazole Sodium (Protonix) 40 mg DAILY PO Last administered on 09/07/17at 09 :28; Start 09/04/17 at 09:00 Patient Own Medication PT OWN MED: [place]ER[place]... DAILY PO Last administered on 09/07 09:29; Start 09/04/17 at 09:00 Potassium Chloride/Sodium Chloride 1,000 ml @ 100 mls/hr Q10H IV Last administered on 09/07/17 21:32; Start 09/05/17 at 18:30 Potassium Chloride 100 ml @ 50 mls/hr Q2H IV Last administered on 09/05/17at 17 :00; Start 09/05/17 at 15:00; Stop 09/05/17 at 18:59; Status DC Potassium Chloride (KCl) 30 meq ONCE ONCE PO Last administered on 09/04/17at 13 :03; Start 09/04/17 at 14:00; Stop 09/04/17 at 14:01; Status DC Prochlorperazine Edisylate (Compazine Inj) 5 mg ONCE ONCE IV PUSH Last administered on 09/05/17at 03:47; Start 09/05/17 at 03:30; Stop 09/05/17 at 03:31 ; Status DC Promethazine HCl (Phenergan Inj) 25 mg ONCE ONCE IM Last administered on at 15:23; Start 09/05/17 at 15:00; Stop 09/05/17 at 15:01; Status DC Senna/Docusate Sodium ([place]oon-Colace) 1 tab BID PO ; Start 09/04/17 at 09:00 Sennosides (Senokot) 17.2 mg Q12H PRN PO Moderate constipation; Start 09/03/17 at 21:15 Sodium Chloride 1,000 ml @ 999 mls/hr BOLUS ONCE IV Last administered on 09/05at 21:57; Start 09/05/17 at 17:30; Stop 4/17/18 at 18:30; Status DC Sodium Chloride (NS Flush) 2 ml BID IV FLUSH Last administered on 09/05/17at 09: 29; Start 09/04/17 at 09:00 A/P Problem List: (1) Headache ICD Code: R51 - Headache (2) Dizziness ICD Code: R42 - Dizziness and giddiness (3) HTN (hypertension) ICD Code: I10 - Essential (primary) hypertension (4) Crohn's disease ICD Code: K50.90 - Crohn's disease, unspecified, without complications Assessment and Plan 1. Headache- better. CT Head w/ no acute abnormality. MRI brain with some demyelination in the white matter- neurology f/u appreciated. 2. Dizziness: in combination w/ headache, blurry vision, and muscle weakness- better- neurology consult as noted above. 3. HTN: improved. No h/o HTN, BP on arrival, >200 systolic, likely compounded by headache/pain complaints. - will continue amlodipine metoprolol. continue to monitor BP and adjust the regimen as needed. 4. Crohn's Disease: Stable, on Humira, no changes to medications. GI consult appreciated- f/u as outpatient. 5.hyponatremia; improved- 6.hypokalemia; replaced. 7. DVT Prophylaxis: SCD/Teds Discharge Planning dc home later today- if BP and HR stable. f/u; pcp, GI and neurology. see med list. d/w the patient. Magnus Clark MD Sep 08, 2017 09:20
[2017-09-08] MEDS: METOPROLOL TARTRATE 25 MG TAB PO SCH (09:27)
[2017-09-08] MEDS: MESALAMINE HD 800 MG DELAYED RELEASE TAB PO SCH ×2 (09:27→13:25)
[2017-09-08] MEDS: UCERIS 9 MG PO SCH (09:29)
[2017-09-08] MEDS: ACETAMINOPHEN 325 MG TAB PO PRN (13:31)
[2017-09-08] MEDS ORDERED: METO25TA3 PO (13:46)
[2017-09-08 15:04] VITALS: RESP 20
== END 2017-09-08 17:16 | disposition home or self-care (01) | DRG 103 ==
LOC: NEPC 17:47 → NEDA 20:57 → NEPGCP 22:40 → OBSVTOIN 09-06 07:57
PROVIDERS: ADMIT Internal Medicine; ATTEND Internal Medicine
DX: R51 Headache (principal); E87.1 Hypo-osmolality and hyponatremia; I10 Essential (primary) hypertension; K50.90 Crohn's disease, unspecified, without complications; E87.6 Hypokalemia; R42 Dizziness and giddiness; R00.0 Tachycardia, unspecified; H53.8 Other visual disturbances; M79.1 Myalgia; R26.81 Unsteadiness on feet; J30.1 Allergic rhinitis due to pollen
CPT/HCPCS: 70450; 70496; 70498; 70544; 70551; 80048; 80053; 80061; 81001; 82550; 82552; 83690; 83735; 84132; 84295; 84484; 85025; 85610; 85652; 85730; 86140; 93005; 93880; 96361; 96365; 96366; 96375; 96376; G0378; J0780; J2270; J2405; J2550; J3475; J3480; J7030; Q9967

== ENCOUNTER 2017-11-28 13:45 | Observation (INO) ==
[2017-11-28 16:49] LABS: Baso % (Auto) 0.5 % (0.0-2.0); Eos # (Auto) 0.2 th/mm3 (0.0-0.4); Hematocrit 42.4 % (39.0-51.0); Hemoglobin 14.2 gm/dL (13.0-17.0); Lymph # (Auto) 3.1 th/mm3 (1.0-4.8); Lymph % (Auto) 39.9 % (9.0-44.0); Mean Corpuscular HGB Conc 33.4 % (32.0-36.0); Mean Corpuscular Hemoglobin 31.9 pg (27.0-34.0); Mean Corpuscular Volume 95.3 fL (80.0-100.0); Mono # (Auto) 0.9 th/mm3 (0.0-0.9); Neut # (Auto) 3.6 th/mm3 (1.8-7.7); Neut % (Auto) 45.6 % (16.0-70.0); Platelet Count 334 th/mm3 (150-450); Red Blood Count 4.45 mil/mm3 (4.50-5.90); Red Cell Distribution Width 11.9 % (11.6-17.2); White Blood Count 7.8 th/mm3 (4.0-11.0)
[2017-11-28] MEDS ORDERED: Morphine Inj 4 MG/ML Vial IV.PUSH ONE ×2 (16:49→20:40)
[2017-11-28] MEDS ORDERED: MethylPREDNISolone Sod Succinate Inj 125 MG/2 ML Vial IV.PUSH ONE (16:49)
[2017-11-28] MEDS ORDERED: Sod Chloride 0.9% Inj 1,000 ML IV.SIG ONE (16:50)
--- NOTE | 2017-11-28 17:00 | ED ---
HPI General Chief Complaint: Abdominal Pain Stated Complaint: Colitis Flare Up/Diarhea x3days Time Seen by Provider: 11/28/17 16:37 Source: patient History of Present Illness HPI narrative: Patient is a 62-year-old male presents the emergency room with complaints of abdominal pain. Patient reports that he has history of ulcerative colitis, he is currently taking Humira as well as uscaris prescribed by Dr. Taylor, his claims attorney. Patient reports that since Monday, he has been having multiple episodes of diarrhea. Patient reports that throughout the week, he has been feeling nauseous and has been vomiting. Patient was started on Zofran which seemed to help his symptoms. Patient reports that he follow-up with his claims attorney, Dr. Taylor today and was told to go directly to the emergency room for CT of his abdomen pelvis. Patient reports that he was concerned for ulcerative colitis flareup. Patient denies any fevers or chills, denies any recent travels or trips. Patient reports that he has not been really able to tolerate anything p.o. given his nausea, vomiting and diarrhea. Reports that the last time this happened, he was admitted last September for IV hydration. MD complaint: abdominal pain Onset (ago): day(s) (Onset was 3 days ago) Pain Consistency: constant Location: LLQ Severity: moderate Quality: cramping, aching and fullness Migration to: no migration Relieving factors: nothing Exacerbating factors: nothing Related Data Home Medications Medication Instructions Recorded Confirmed adalimumab [Humira] 40 mg SUB-Q WEEKLY 11/28/17 11/28/17 amlodipine 2.5 mg PO DAILY 11/28/17 11/28/17 cetirizine [Zyrtec] 10 mg PO DAILY 11/28/17 11/28/17 esomeprazole magnesium [Nexium 20 mg PO DAILY PRN 11/28/17 11/28/17 24HR] mesalamine [Lialda] 4.8 g PO DAILY 11/28/17 11/28/17 metoprolol succinate 25 mg PO BID 11/28/17 11/28/17 montelukast [Singulair] 10 mg PO DAILY 11/28/17 11/28/17 ondansetron HCl [Zofran] 4 mg PO Q6-8H PRN 11/28/17 11/28/17 Allergies Allergy/AdvReac Type Severity Reaction Status Date / Time diclofenac Allergy Severe Diarrhea Verified 11/28/17 14:23 etodolac Allergy Severe Diarrhea Verified 11/28/17 14:23 flurbiprofen Allergy Severe Diarrhea Verified 11/28/17 14:23 ibuprofen Allergy Severe Diarrhea Verified 11/28/17 14:23 indomethacin Allergy Severe Diarrhea Verified 11/28/17 14:23 ketoprofen Allergy Severe Diarrhea Verified 11/28/17 14:23 ketorolac Allergy Severe Diarrhea Verified 11/28/17 14:23 naproxen Allergy Severe Diarrhea Verified 11/28/17 14:23 oxaprozin Allergy Severe Diarrhea Verified 11/28/17 14:23 Sulfa (Sulfonamide Allergy Severe Diarrhea Verified 11/28/17 14:23 Antibiotics) ANTIBIOTICS Allergy Severe Abdominal Uncoded 11/28/17 14:23 Pain Review of Systems ROS Unobtainable All other systems reviewed negative except as stated in HPI [facility] Medical History Medical History GERD (gastroesophageal reflux disease) (Acute) Hypertension (Acute) Ulcerative colitis (Acute) Surgical History Surgical History Hx of cholecystectomy (Acute) Social History Social History Substance History: No History of Abuse Second Hand Smoke Exposure: No Smoking Status: Never smoker How Often Do You Have a Drink Containing Alcohol: Never Recent Travel in [place] within the Last 8 Weeks: No Recent Out of Country Travel within the Last 8 Weeks: No Immunization History Tetanus Immunization: >5 Years Hx Influenza Vaccine This Season: Yes Exam Narrative Exam Narrative: GENERAL: Moderate distress SKIN: Focused skin assessment warm/dry. HEAD: Atraumatic. Normocephalic. EYES: Pupils equal and round. No scleral icterus. No injection or drainage. ENT: No nasal bleeding or discharge. Mucous membranes pink and moist. NECK: Trachea midline. No JVD. CARDIOVASCULAR: Regular rate and rhythm. No murmur appreciated. RESPIRATORY: No accessory muscle use. Clear to auscultation. Breath sounds equal bilaterally. GASTROINTESTINAL: Abdomen soft, increased tenderness to left lower abdomen with no rebound or guarding, nondistended. Hepatic and splenic margins not palpable. MUSCULOSKELETAL: No obvious deformities. No clubbing. No cyanosis. No edema. NEUROLOGICAL: Awake and alert. No obvious cranial nerve deficits. Motor grossly within normal limits. Normal speech. PSYCHIATRIC: Appropriate mood and affect; insight and judgment normal. Course Initial Documented Vital Signs Temperature 98.1 F 11/28/17 14:18 Pulse Rate 85 11/28/17 14:18 Respiratory Rate 16 11/28/17 14:18 Blood Pressure 153/87 H 11/28/17 14:18 Pulse Oximetry 100 11/28/17 14:18 Last Documented Vital Signs Temperature 98.1 F 11/28/17 14:18 Pulse Rate 87 11/28/17 18:30 Respiratory Rate 16 11/28/17 18:30 Blood Pressure 169/95 H 11/28/17 18:30 Pulse Oximetry 98 11/28/17 17:15 Medical Decision Making TIN Attestation TIN supervised visit: No MDM Narrative Medical decision making narrative: During the course of the patients emergency department visit, the patients history, examination, and differential diagnosis were reviewed with the patient. The patient was placed on a hospital monitor with oximetry and frequent blood pressure monitoring. The patient had an IV access obtained and blood work sent for analysis. The patient was initially provided IVF, IV solumedrol, IV morphine Labs and studies reviewed, patient with a sodium of 124, IV fluids were ordered. Patient will require admission to the hospital for electrolyte replenishment as well as for treatment of ulcerative colitis Case reviewed with Dr. Larry who accepts patient to service. Differential Diagnosis Differential Diagnosis: Differential includes UC flareup, colitis, diverticulitis, C. difficile colitis, electrolyte abnormality Lab Data Result diagrams: 11/28/17 16:35 11/28/17 16:35 Lab Results 11/28/17 11/28/17 11/28/17 Range/Units 16:35 16:35 18:20 CBC w Diff Auto diff final WBC 7.8 (4.0-11.0) th/mm3 RBC 4.45 L (4.50-5.90) mil/mm3 Hgb 14.2 (13.0-17.0) gm/dL Hct 42.4 (39.0-51.0) % MCV 95.3 (80.0-100.0) fL MCH 31.9 (27.0-34.0) pg MCHC 33.4 (32.0-36.0) % RDW 11.9 (11.6-17.2) % Plt Count 334 (150-450) th/mm3 MPV 7.0 (7.0-11.0) fL Neut % (Auto) 45.6 (16.0-70.0) % Lymph % (Auto) 39.9 (9.0-44.0) % [place] % (Auto) 12.0 H (0.0-8.0) % Eos % (Auto) 2.0 (0.0-4.0) % Baso % (Auto) 0.5 (0.0-2.0) % Neut # (Auto) 3.6 (1.8-7.7) th/mm3 Lymph # (Auto) 3.1 (1.0-4.8) th/mm3 [place] # (Auto) 0.9 (0.0-0.9) th/mm3 Eos # (Auto) 0.2 (0.0-0.4) th/mm3 Baso # (Auto) 0.0 (0.0-0.2) th/mm3 WBC Differential . Differential Comment . Sodium 124 L* (136-145) meq/L Potassium 3.2 L (3.5-5.1) meq/L Chloride 90 L (98-107) meq/L Carbon Dioxide 22.5 (21.0-32.0) meq/L Anion Gap 12 (5-15) meq/L BUN 7 (7-18) mg/dL Creatinine 0.56 L (0.60-1.30) mg/dL Estimated GFR Greater than 89 (>89) mL/min Random Glucose 86 (74-106) mg/dL Calcium 9.0 (8.5-10.1) mg/dL Total Bilirubin 1.0 (0.2-1.0) mg/dL AST 19 (15-37) U/L ALT 29 (12-78) U/L Alkaline Phosphatase 55 (45-117) U/L Total Protein 8.2 (6.4-8.2) g/dL Albumin 3.8 (3.4-5.0) g/dL Urine Color Yellow (Yellw/Straw) Urine Clarity Clear (Clear) Urine pH 6.5 (5.0-8.5) Ur Specific [place] Less/equal 1.005 (1.002-1.035) Urine Protein Negative (Neg-Trace) mg/dL Urine Glucose (UA) Negative (Negative) mg/dL Urine Ketones 15 H (Negative) mg/dL Urine Occult Blood Trace (Negative) Urine Nitrate Negative (Negative) Urine Bilirubin Negative (Negative) Urine Urobilinogen 0.2 (Less than 2) mg/dL Ur Leukocyte Esterase Negative (Negative) Urine RBC 0-3 (0-3) /hpf Micro UA Comment Culture not ind Urine Culture Comments Culture not ind Imaging Data Radiologist's impression: ITS Impressions Abdomen/Pelvis CT 11/28/17 16:47 CONCLUSION: 1. No obstruction or acute inflammatory changes are demonstrated. 2. Distended urinary bladder. 3. No change circumscribed low density, cystic-appearing mass of the pancreatic body, probably benign. 4. Lingular infiltrate seen visualized left lung base. Discharge Plan Discharge Disposition Patient Disposition: 30 Still Patient Discharge Details Diagnosis: Acute hyponatremia, Ulcerative colitis Physicians Team ED Provider: Ritu Henderson Primary Care Provider: Kyra Gardner Other Providers: Kacey Taylor Rxs /Orders / Referrals /Forms Prescriptions: No Action ondansetron HCl [Zofran] 4 mg Tablet 4 mg PO Q6-8H PRN (Reason: Nausea) RF: 0 amlodipine 2.5 mg Tablet 2.5 mg PO DAILY RF: 0 metoprolol succinate 25 mg Tablet Extended Release 24 Hr 25 mg PO BID RF: 0 esomeprazole magnesium [Nexium 24HR] 20 mg Capsule,Delayed Release(Dr/Ec) 20 mg PO DAILY PRN (Reason: Nausea) RF: 0 cetirizine [Zyrtec] 10 mg Tablet 10 mg PO DAILY RF: 0 montelukast [Singulair] 10 mg Tablet 10 mg PO DAILY RF: 0 adalimumab [Humira] 40 mg/0.8 mL Syringe Kit 40 mg SUB-Q WEEKLY RF: 0 mesalamine [Lialda] 1.2 gram Tablet,Delayed Release (Dr/Ec) 4.8 g PO DAILY RF: 0 Discharge Interventions Interventions: Vital Signs Last Done: 11/28/17 18:30 Status ED Status: With Doctor
[2017-11-28 17:20] LABS: Alanine Aminotransferase 29 U/L (12-78); Albumin 3.8 g/dL (3.4-5.0); Alkaline Phosphatase 55 U/L (45-117); Anion Gap 12 meq/L (5-15); Aspartate Aminotransferase 19 U/L (15-37); Blood Urea Nitrogen 7 mg/dL (7-18); Carbon Dioxide 22.5 meq/L (21.0-32.0); Chloride 90 meq/L (98-107); Glomerular Filtration Rate Greater Than 89 mL/min (>89); Glucose,Random 86 mg/dL (74-106); Potassium 3.2 meq/L (3.5-5.1); Total Protein 8.2 g/dL (6.4-8.2)
[2017-11-28 17:24] LABS: Sodium 124 meq/L (136-145)
[2017-11-28] MEDS ORDERED: Diatrizoate Meglum/Diatrizoate Sod Liq 9 ML UDC ONE (18:19)
[2017-11-28 18:31] LABS: Bilirubin,Urine Negative (Negative); Clarity,Urine Clear (Clear); Color,Urine Yellow (Yellw/Straw); Glucose,Urine (UA) Negative (Negative); Leukocyte Esterase,Urine Negative (Negative); Nitrite,Urine Negative (Negative); PH,Urine 6.5 (5.0-8.5); Specific Gravity,Urine Less/Equal 1.005 (1.002-1.035); Urobilinogen,Urine 0.2 mg/dL (Less than 2)
[2017-11-28 18:52] LABS: RBC,Urine 0-3 /hpf (0-3)
--- NOTE | 2017-11-28 20:13 | CT ---
EXAM DATE: 11/28/2017 7:52 PM EDT AGE/SEX: 62 years / Male INDICATIONS: Abdominal pain, specifically in the left lower quadrant and diarrhea for 3 days. CLINICAL DATA: This is the patient's initial encounter. Patient reports that signs and symptoms have been present for 3 days and indicates a pain score of 5/10. MEDICAL/SURGICAL HISTORY: Hypertension. Gastroesophageal reflux disease. Colitis. Cholecystec alpa. ORAL CONTRAST: Prescribed oral contrast ingested. RADIATION DOSE: 8.04 CTDI (mGy) COMPARISON: [facility], CT ABDOMEN & PELVIS W CONTRAST, 10/04/2016. . TECHNIQUE: Multiple contiguous axial images were obtained through the abdomen and pelvis following b olus infusion of 90 ml Omnipaque 350 (iohexol) nonionic water-soluble contrast as a single exam dos e. Prescribed oral contrast ingested. Using automated exposure control and adjustment of the mA and/ or kV according to patient size, radiation dose was kept as low as reasonably achievable to obtain op timal diagnostic quality images. DICOM format image data is available electronically for review and comparison. FINDINGS: Liver, spleen, adrenal glands and kidneys are within normal limits. Cholecystectomy changes are again noted. Unchanged 15 mm low-density structure of the pancreatic body. No obstruction or acute inflammatory changes are seen of the gastrointestinal tract. No free fluid or free air. No lymphadenopathy. Distended urinary bladder at the time of imaging. Similar findings were seen previously and please co rrelate clinically. Mild consolidation seen visualized lingular division of the left upper lobe. No acute bony abnormality demonstrated. CONCLUSION: 1. No obstruction or acute inflammatory changes are demonstrated. 2. Distended urinary bladder. 3. No change circumscribed low density, cystic-appearing mass of the pancreatic body, probably benig n. 4. Lingular infiltrate seen visualized left lung base. Electronically signed by: Reno Kirk MD 11/28/2017 8:12 PM EDT
[2017-11-28] MEDS ORDERED: Potassium Chlor 20 mEq Premix 20 MEQ/100 ML PIGGYBACK IV.SIG ONE (20:40)
[2017-11-28] MEDS ORDERED: Morphine Inj 4 MG/ML Vial IV.PUSH PRN (21:32)
[2017-11-28] MEDS ORDERED: Temazepam 15 MG Capsule PO PRN (21:35)
[2017-11-28] MEDS ORDERED: Bisacodyl 10 MG Supp RECTAL PRN (21:35)
[2017-11-28] MEDS: Sod Chloride 0.9% Inj 1,000 ML IV.CONT SCH (22:00)
[2017-11-29 05:03] LABS: Baso # (Auto) 0.1 th/mm3 (0.0-0.2); Baso % (Auto) 1.1 % (0.0-2.0); Eos % (Auto) 0.1 % (0.0-4.0); Hematocrit 43.9 % (39.0-51.0); Hemoglobin 14.8 gm/dL (13.0-17.0); Lymph # (Auto) 0.6 th/mm3 (1.0-4.8); Lymph % (Auto) 7.1 % (9.0-44.0); Mean Corpuscular HGB Conc 33.7 % (32.0-36.0); Mean Corpuscular Hemoglobin 32.1 pg (27.0-34.0); Mean Corpuscular Volume 95.1 fL (80.0-100.0); Mean Platelet Volume 7.4 fL (7.0-11.0); Mono # (Auto) 0.1 th/mm3 (0.0-0.9); Mono % (Auto) 1.7 % (0.0-8.0); Neut # (Auto) 7.5 th/mm3 (1.8-7.7); Platelet Count 326 th/mm3 (150-450); Red Blood Count 4.61 mil/mm3 (4.50-5.90); Red Cell Distribution Width 11.9 % (11.6-17.2); White Blood Count 8.3 th/mm3 (4.0-11.0)
[2017-11-29 05:26] LABS: Anion Gap 11 meq/L (5-15); Blood Urea Nitrogen 10 mg/dL (7-18); Carbon Dioxide 21.4 meq/L (21.0-32.0); Chloride 103 meq/L (98-107); Glomerular Filtration Rate Greater Than 89 mL/min (>89); Glucose,Random 135 mg/dL (74-106); Potassium 4.5 meq/L (3.5-5.1); Sodium 135 meq/L (136-145)
[2017-11-29] MEDS: Sod Chloride 0.9% Inj 1,000 ML IV.CONT SCH ×2 (07:15→21:14)
[2017-11-29] MEDS ORDERED: Non-Formulary Drug (Amlodipine [Amlodipine] 2.5 MG) PO SCH (09:00)
[2017-11-29] MEDS ORDERED: MESALAMINE 4.8 GM PO SCH ×2 (09:00→09:30)
[2017-11-29] MEDS ORDERED: Acetaminophen 325 MG Tablet PO PRN (09:12)
[2017-11-29] MEDS: Senna/Docusate Sodium 8.6/50 MG Tablet PO SCH ×3 (09:20→20:05)
--- NOTE | 2017-11-29 10:03 | P.HPIM ---
History of Present Illness Primary Care Physician: Kyra Gardner MD Chief Complaint: diarrhea History of Present Illness: patient is a 62 y/o male with history of ulcerative colitis and hypertension who presented to ER with diarrhea. he says that he had diarrhea for two days. he doesn't report any abdominal pain or blood in the stool. he says that he didn 't have any nausea since he was taking zofran. he denies any fever or chills but he says that he was feeling weak due to his diarrhea. - Diagnosis (1) Ulcerative colitis (2) Acute hyponatremia (3) Hypokalemia (4) Hypertension Review of Systems All other systems reviewed negative except as stated in HPI PMFSH - History History Provided By: Patient, Medical Record - Medical History Medical History: Medical History (Last Reviewed 11/28/17 @ 16:58 by Ritu Henderson) GERD (gastroesophageal reflux disease) Hypertension Ulcerative colitis - Surgical History Surgical History: Surgical History (Last Reviewed 11/28/17 @ 16:58 by Ritu Henderson) Hx of cholecystectomy - Tobacco History Second Hand Smoke Exposure: No Tobacco Use In Past 30 Days: No Smoking Status: Never smoker - Alcohol History How Often Do You Have a Drink Containing Alcohol: Never - Substance Use History Substance History: No History of Abuse - Travel History Recent Travel in the [place] Within the Last 8 Weeks: No Recent Travel Out of the Country Within the Last 8 Weeks: No - Immunization History Tetanus Immunization: >5 Years Hx Influenza Vaccine This Season: Yes Medications and Allergies Active Medications: Active Medications Acetaminophen (Tylenol) 650 mg PO Q6H PRN PRN Reason: PAIN 1-5, ODEN, FEVER Last Admin: 11/29/17 09:19 Dose: 650 mg Al Hydroxide/Mg Hydroxide (Milk Of Magnesia Liq) 30 ml PO Q12H PRN PRN Reason: Mild Constipation Amlodipine Besylate (Norvasc) 2.5 mg PO DAILY [facility] Bisacodyl (Dulcolax Supp) 10 mg RECTAL DAILY PRN PRN Reason: SEVERE CONSITIPATION Sodium Chloride (Ns Inj) 1,000 mls @ 70 mls/hr IV.CONT .[id number] [facility] Last Admin: 11/29/17 07:15 Dose: 70 mls/hr Lactulose (Lactulose Liq) 30 ml PO DAILY PRN PRN Reason: SEVERE CONSITIPATION Metoclopramide HCl (Reglan Inj) 5 mg IV.PUSH Q6HR PRN; Protocol PRN Reason: NAUSEA OR VOMITING Metoprolol Succinate (Toprol Xl) 25 mg PO BID [facility] Last Admin: 11/29/17 09:20 Dose: 25 mg Morphine Sulfate (Morphine Inj) 4 mg IV.PUSH Q4H PRN PRN Reason: pain 6-10 Non-Formulary Medication (Esomeprazole Magnesium [Nexium 24hr]) 20 mg PO DAILY PRN PRN Reason: Nausea Ondansetron HCl (Zofran Inj) 4 mg IV.PUSH Q6H PRN PRN Reason: NAUSEA OR VOMITING Patient Own: ( Mesalamine [Lialda] 4.8 G) 0 each PO DAILY [facility] Senna/Docusate Sodium (Moon-Colace) 1 tab PO BID [facility] Last Admin: 11/29/17 09:21 Dose: Not Given Sennosides (Senokot) 17.2 mg PO Q12H PRN PRN Reason: Moderate Constipation Temazepam (Restoril) 15 mg PO HS PRN PRN Reason: INSOMNIA Allergies Allergy/AdvReac Type Severity Reaction Status Date / Time diclofenac Allergy Severe Diarrhea Verified 11/28/17 14:23 etodolac Allergy Severe Diarrhea Verified 11/28/17 14:23 flurbiprofen Allergy Severe Diarrhea Verified 11/28/17 14:23 ibuprofen Allergy Severe Diarrhea Verified 11/28/17 14:23 indomethacin Allergy Severe Diarrhea Verified 11/28/17 14:23 ketoprofen Allergy Severe Diarrhea Verified 11/28/17 14:23 ketorolac Allergy Severe Diarrhea Verified 11/28/17 14:23 naproxen Allergy Severe Diarrhea Verified 11/28/17 14:23 oxaprozin Allergy Severe Diarrhea Verified 11/28/17 14:23 Sulfa (Sulfonamide Allergy Severe Diarrhea Verified 11/28/17 14:23 Antibiotics) ANTIBIOTICS Allergy Severe Abdominal Uncoded 11/28/17 14:23 Pain Home Medications Medication Instructions Recorded Confirmed Type adalimumab [Humira] 40 mg SUB-Q WEEKLY 11/28/17 11/28/17 History amlodipine 2.5 mg PO DAILY 11/28/17 11/28/17 History cetirizine [Zyrtec] 10 mg PO DAILY 11/28/17 11/28/17 History esomeprazole magnesium [Nexium 20 mg PO DAILY PRN 11/28/17 11/28/17 History 24HR] mesalamine [Lialda] 4.8 g PO DAILY 11/28/17 11/28/17 History metoprolol succinate 25 mg PO BID 11/28/17 11/28/17 History montelukast [Singulair] 10 mg PO DAILY 11/28/17 11/28/17 History ondansetron HCl [Zofran] 4 mg PO Q6-8H PRN 11/28/17 11/28/17 History budesonide [Uceris] 9 mg PO QAM MDD 9MG 11/29/17 11/29/17 History Exam Vital signs: Vital Signs 11/28/17 14:18 11/28/17 16:00 11/28/17 17:15 Temperature 98.1 F Pulse Rate 85 84 80 Respiratory Rate 16 16 16 Blood Pressure 153/87 H 159/88 H 157/86 H Pulse Oximetry 100 100 98 11/28/17 18:28 11/28/17 18:30 11/28/17 20:00 Temperature Pulse Rate 87 89 Respiratory Rate 4 L 16 16 Blood Pressure 169/95 H 150/90 H Pulse Oximetry 98 11/28/17 21:17 11/28/17 22:00 11/28/17 22:51 Temperature Pulse Rate 104 H 109 H Respiratory Rate 18 18 18 Blood Pressure 140/75 155/89 H Pulse Oximetry 98 98 11/28/17 23:00 11/29/17 03:00 Temperature 98.2 F 98.0 F Pulse Rate 89 88 Respiratory Rate 14 16 Blood Pressure 155/85 H 116/75 Pulse Oximetry 97 96 Intake & Output 11/28/17 11/29/17 11/29/17 18:59 06:59 18:59 Intake Total 1000 / 1000 950 / 950 1000 / 1000 Output Total 2600 / 2600 Balance 1000 / 1000 -1650 / -1650 1000 / 1000 Weight 66.2 kg 65 kg Intake: IV 1000 / 1000 100 / 100 1000 / 1000 NS Inj 1,000 ML @ 70 mls/hr IV. 1000 / 1000 CONT .[id number] [facility] Rx#: [id number] KCl 20 mEq Premix Inj 20 meq In 100 / 100 100 ml @ 50 mls/hr IV.SIG ONCE ONE Rx#:[id number] NS Inj 1,000 ML @ Wide Open IV. 1000 / 1000 SIG BOLUS ONE Rx#:[id number] Oral 850 / 850 Output: Urine 2600 / 2600 Other: Date of Last Bowel Movement 11/28/17 # Bowel Movements 0 Weight On Admission 65 kg Results - Labs CBC & Chem 7: 11/29/17 04:50 11/29/17 04:50 Labs: Short CBC 11/28/17 11/29/17 Range/Units 16:35 04:50 WBC 7.8 8.3 (4.0-11.0) th/mm3 Hgb 14.2 14.8 (13.0-17.0) gm/dL Hct 42.4 43.9 (39.0-51.0) % Plt Count 334 326 (150-450) th/mm3 BMP 11/28/17 11/29/17 16:35 04:50 Sodium 124 L* 135 L D Potassium 3.2 L 4.5 D Chloride 90 L 103 D Carbon Dioxide 22.5 21.4 BUN 7 10 Creatinine 0.56 L 0.57 L Calcium 9.0 9.0 Liver Function 11/28/17 Range/Units 16:35 Total Bilirubin 1.0 (0.2-1.0) mg/dL AST 19 (15-37) U/L ALT 29 (12-78) U/L Alkaline Phosphatase 55 (45-117) U/L Albumin 3.8 (3.4-5.0) g/dL Urine 11/28/17 Range/Units 18:20 Urine Color Yellow (Yellw/Straw) Urine Clarity Clear (Clear) Urine pH 6.5 (5.0-8.5) Ur Specific [place] Less/equal 1.005 (1.002-1.035) Urine Protein Negative (Neg-Trace) mg/dL Urine Glucose (UA) Negative (Negative) mg/dL - Imaging Impressions Abdomen/Pelvis CT 11/28/17 16:47 CONCLUSION: 1. No obstruction or acute inflammatory changes are demonstrated. 2. Distended urinary bladder. 3. No change circumscribed low density, cystic-appearing mass of the pancreatic body, probably benign. 4. Lingular infiltrate seen visualized left lung base. Caprini VTE Risk Assessment Caprini VTE Risk Assessment: Moderate/High Risk (score >= 2) Caprini Risk Assessment Model: Point Value = 1 Point Value = 2 Point Value = 3 Point Value = 5 Age 41-60 Minor surgery BMI > 25 kg/m2 Swollen legs Varicose veins or History of unexplained or recurrent spontaneous Oral contraceptives or hormone replacement Sepsis (< 1 month) Serious lung disease, including pneumonia (< 1 month) Abnormal pulmonary function Acute myocardial infarction Congestive heart failure (< 1 month) History of inflammatory bowel disease Medical patient at bed rest Age 61-74 Arthroscopic surgery Major open surgery (> 45 min) Laparoscopic surgery (> 45 min) Malignancy Confined to bed (> 72 hours) Immobilizing plaster cast Central venous access Age >= 75 History of VTE Family history of VTE Factor V Leiden Prothrombin [id number] Lupus anticoagulant Anticardiolipin antibodies Elevated serum homocysteine Heparin-induced thrombocytopenia Other congenital or acquired thrombophilia Stroke (< 1 month) Elective arthroplasty Hip, pelvis, or leg fracture Acute spinal cord injury (< 1 month) Prophylaxis Regimen: Total Risk Factor Score Risk Level Prophylaxis Regimen 0-1 Low Early ambulation 2 Moderate Order ONE of the following: *Sequential Compression Device (SCD) *Heparin 5000 units SQ BID 3-4 Higher Order ONE of the following medications: *Heparin 5000 units SQ TID *Enoxaparin/Lovenox 40 mg SQ daily (WT < 150 kg, CrCl > 30 mL/min) *Enoxaparin/Lovenox 30 mg SQ daily (WT < 150 kg, CrCl > 10-29 mL/min) *Enoxaparin/Lovenox 30 mg SQ BID (WT < 150 kg, CrCl > 30 mL/min) AND/OR *Sequential Compression Device (SCD) 5 or more Highest Order ONE of the following medications: *Heparin 5000 units SQ TID (Preferred with Epidurals) *Enoxaparin/Lovenox 40 mg SQ daily (WT < 150 kg, CrCl > 30 mL/min) *Enoxaparin/Lovenox 30 mg SQ daily (WT < 150 kg, CrCl > 10-29 mL/min) *Enoxaparin/Lovenox 30 mg SQ BID (WT < 150 kg, CrCl > 30 mL/min) AND *Sequential Compression Device (SCD) Assessment and Plan - Assessment (1) Ulcerative colitis Code(s): K51.90 - Ulcerative colitis, unspecified, without complications Status: Chronic Plan: CT of the abdomen as noted above-clinically improved and diarrhea has resolved- resume home meds-awaiting GI evaluation. (2) Acute hyponatremia Code(s): E87.1 - Hypo-osmolality and hyponatremia Status: Acute Plan: has much improved.continue IV fluid. (3) Hypokalemia Code(s): E87.6 - Hypokalemia Status: Acute Plan: replaced. (4) Hypertension Code(s): I10 - Essential (primary) hypertension Status: Chronic Plan: resume home meds. - Plan Discussed Condition With: the patient and RN. Discharge Planning: dc home within the next 24 hrs- pending GI evaluation. H&P: Quality - VTE Deep Vein Thrombosis/Pulmonary Embolism Present on Admission: No (4) Hypertension Qualifiers: Hypertension type: essential hypertension Qualified Code(s): I10 - Essential (primary) hypertension
[2017-11-29] MEDS ORDERED: BUDESONIDE 9 MG PO SCH (10:45)
[2017-11-29] MEDS ORDERED: amLODIPine 5 MG Tablet PO SCH (12:48)
[2017-11-29] MEDS ORDERED: amLODIPine 5 MG Tablet PO ONE (16:40)
[2017-11-29] MEDS ORDERED: Aluminum/Magnesium/Simethacone Susp 30 ML UDC PO ONE (16:41)
[2017-11-29] MEDS: Mesalamine 800 MG Tablet DR PO SCH ×2 (17:25→22:14)
[2017-11-29] MEDS ORDERED: MethylPREDNISolone Sod Succinate Inj 125 MG/2 ML Vial IV.PUSH ONE (20:15)
--- NOTE | 2017-11-29 20:40 | MB ---
cc: Kacey Taylor MD, Ketul R MD DATE: 11/29/2017 PRIMARY CARE PHYSICIAN: Kyra Gardner MD REASON FOR CONSULTATION: Ulcerative colitis, diarrhea. HISTORY OF PRESENT ILLNESS: This is a 62-year-old gentleman known to our office for history of ulcerative colitis. He has been relatively stable on Humira 40 mg subcutaneous every other week, Lialda. He came into the office complaining of left-sided abdominal discomfort and profuse diarrhea which began on Monday, which had progressed on Monday as well. Due to the above symptoms, he was advised to go to the emergency room for further workup and evaluation, which may include imaging and lab work as well as stool studies. Prior to admission, he did have multiple episodes of loose watery diarrhea associated with abdominal pain, but denied having any blood in the stool. He denies any recent sick contacts or travel history. Denied missing any medications. His ulcerative colitis relatively had been under good control over the years. Due to the severity of his symptoms, he came into the ER, had further workup done, which was significant for hyponatremia with hypokalemia and further electrolyte derangements. He underwent a CT scan which was negative for acute perforation or acute colitis. No clear evidence of acute inflammatory changes were noted. PAST MEDICAL HISTORY: Ulcerative colitis, GERD, hypertension. PAST SURGICAL HISTORY: Cholecystectomy. FAMILY HISTORY: No GI malignancy. SOCIAL HISTORY: Denies any alcohol or illicit drug use. ALLERGIES: DICLOFENAC, IBUPROFEN, INDOMETHACIN HOME MEDICATIONS: 1. Humira subcutaneous every other week. 2. Amlodipine. 3. Zyrtec. 4. Nexium. 5. Mesalamine 4.8 grams daily. 6. Metoprolol. 7. Singulair. 8. Zofran 9. Budesonide 9 mg a day. REVIEW OF SYSTEMS: A 10-point review of system was obtained by mt and was negative or noncontributory. PHYSICAL EXAMINATION: VITAL SIGNS: Afebrile, heart rate of 86, respirations 27, blood pressure 141/81, O2 saturation 97%. HEENT: Mucosa moist and pink. Extraocular movements are intact. Pupils equal, round, reactive to light. NECK: Supple, nontender. No carotid bruits noted. No thyromegaly appreciated. No lymphadenopathy noted. CARDIOVASCULAR: Regular rate and rhythm. RESPIRATORY: Clear to auscultation bilaterally with no wheezing. ABDOMEN: Soft, nondistended, mildly tender to palpation in the left lower quadrant. No rebound appreciated. No guarding noted. No ecchymosis noted. GENITOURINARY: No CVA tenderness noted. No lymphadenopathy appreciated. EXTREMITIES: No edema noted. Equal strength in upper and lower extremities. NEUROLOGIC: Alert and oriented. No focal deficits. PSYCHIATRIC: Cooperative, appropriate mood and affect. LABORATORY DATA: WBC 8.3, hemoglobin 14.8, platelet count 326. Sodium 135, potassium 4.5, chloride 103, bicarbonate 21, BUN 11, creatinine 0.57. IMPRESSION: 1. Acute diarrheal illness, etiology unclear, with significant resolution after admission with IV hydration and a dose of Solu-Medrol, certainly possibility of an acute flare of his colitis versus an infectious cause. 2. Abdominal pain secondary to above. Possibility of ulcerative colitis flare. 3. Electrolyte disturbance, status post replacement. RECOMMENDATION: 1. We will give a normal saline bolus 500 mL x1. 2. IV Solu-Medrol, 1 tablet x one dose now. 3. Advance diet as tolerated. 4. Recommend stool studies for Clostridium difficile, if it already has not been performed. 5. Continue budesonide 9 mg per day. 6. The patient is due for his Humira injection tomorrow. I do not have any objection to continuing this. 7. Mesalamine total 4.8 grams daily. 9. If patient tolerates a diet today well, his diarrhea is controlled and his electrolyte is stabilized by tomorrow and he feels well enough, I do not have any objection to discharge from gastroenterology standpoint. The patient can followup in the office with gastroenterology in 2 weeks. Thank you for allowing [facility] to participate in the care of this patient. We will follow him with you and make recommendation as per the patient's clinical course. MD MEAGHAN Díaz/ , 08:03 PM , 08:38 PM
[2017-11-29] MEDS ORDERED: Montelukast 10 MG Tablet PO SCH (21:00)
[2017-11-30] MEDS ORDERED: Pantoprazole Sodium 20 MG DR Tablet PO SCH (09:00)
[2017-11-30] MEDS ORDERED: amLODIPine 5 MG Tablet PO SCH ×2 (09:00)
[2017-11-30] MEDS ORDERED: Montelukast 10 MG Tablet PO SCH (09:00)
--- NOTE | 2017-11-30 10:11 | P.DS ---
Date of admission: 11/28/17 20:36 Primary care physician: Kyra Gardner MD Brief History from admission: This patient is a 62-year-old gentleman with a history of ulcerative colitis and hypertension who came to the emergency room with acute diarrhea for 2 days. He was quite dehydrated and required evaluation in the hospital with a sodium of 124 on admission. DS: Diagnosis - Discharge Diagnosis (1) Acute hyponatremia Status: Acute (2) Ulcerative colitis Status: Chronic DS: Summary Hospital Course: Patient was seen and evaluated for acute dehydration and hyponatremia. Patient improved with IV fluids. He was seen by gastroenterology and was recommended for outpatient follow-up. - Time Spent with Patient Total time spent providing and/or coordinating discharge services: - Quality: VTE Deep Vein Thrombosis/Pulmonary Embolism Present on Admission: No Exam Vital signs: Vital Signs 11/29/17 11:00 11/29/17 12:00 11/29/17 13:00 Temperature Pulse Rate 94 H 76 88 Respiratory Rate 31 H 25 H 27 H Blood Pressure Pulse Oximetry 95 95 98 11/29/17 13:12 11/29/17 13:15 11/29/17 14:00 Temperature 98.6 F Pulse Rate 78 110 H Respiratory Rate 25 H 25 H Blood Pressure 128/79 Pulse Oximetry 95 97 11/29/17 15:00 11/29/17 15:57 11/29/17 16:00 Temperature Pulse Rate 74 88 74 Respiratory Rate 14 31 H 20 Blood Pressure 141/81 H Pulse Oximetry 97 98 98 11/29/17 17:00 11/29/17 20:00 11/30/17 00:00 Temperature 99.3 F 98.1 F Pulse Rate 86 92 H 62 Respiratory Rate 27 H 14 Blood Pressure 144/84 H 120/78 Pulse Oximetry 97 97 97 11/30/17 04:08 11/30/17 09:31 Temperature 98.2 F 98.7 F Pulse Rate 62 Respiratory Rate 13 Blood Pressure 117/70 Pulse Oximetry 97 Intake & Output 11/29/17 11/30/17 11/30/17 18:59 06:59 18:59 Intake Total 1000 / 1000 999 / 999 Output Total 1700 / 1700 Balance 1000 / 1000 -701 / -701 Weight 65 kg Intake: IV 1000 / 1000 999 / 999 NS Inj 1,000 ML @ 70 mls/hr IV. 1000 / 1000 999 / 999 CONT .[id number] [facility] Rx#: [id number] Output: Urine 1700 / 1700 Other: # Voids 1 Date of Last Bowel Movement 11/28/17 11/29/17 Narrative: GENERAL: Patient calm resting and without complaints SKIN: Warm and dry. No rashes or ecchymotic injuries EYES: Pupils equal and round. No scleral icterus. No injection or drainage. ENT: External ear exam normal. No acute nasal bleeding or discharge. Mucous membranes pink and moist. CARDIOVASCULAR: Regular rate and rhythm. No murmurs gallops or rubs appreciated RESPIRATORY: Good air flow and effort without accessory muscle use. Clear to auscultation. Breath sounds equal bilaterally. GASTROINTESTINAL: Abdomen soft, non-tender, nondistended. Hepatic and splenic margins not palpable. MUSCULOSKELETAL: Extremities without clubbing, cyanosis, or edema. No obvious deformities. NEUROLOGICAL: Awake and alert. No obvious cranial nerve deficits. Motor grossly within normal limits. Five out of 5 muscle strength in the arms and legs. Normal speech. Results Procedures completed during hospitalization: none - Impressions ITS Impressions Abdomen/Pelvis CT 11/28/17 16:47 CONCLUSION: 1. No obstruction or acute inflammatory changes are demonstrated. 2. Distended urinary bladder. 3. No change circumscribed low density, cystic-appearing mass of the pancreatic body, probably benign. 4. Lingular infiltrate seen visualized left lung base. Discharge Plan - Discharge Disposition Patient Disposition: 01 Discharge Home - Discharge Condition Condition: Stable - Discharge Order Discharge Orders: Discharge Order (Routine); Ordered 11/30/17 Ordered By: Yumi Cox - Discharge Details Anticipated Discharge Date: 11/30/17 - Physicians Team Primary Care Provider: Kyra Gardner Attending Provider: Yumi Cox Other Providers: Kacey Taylor MD
[2017-11-30] MEDS: Senna/Docusate Sodium 8.6/50 MG Tablet PO SCH (10:26)
[2017-11-30] MEDS: Mesalamine 800 MG Tablet DR PO SCH ×2 (10:26→10:48)
[2017-11-30] MEDS ORDERED: ADALIMUMAB 40 MG SQ SCH (15:30)
[2017-12-01] MEDS ORDERED: HUMIRA 40 MG/0.8 ML SQ SCH (09:00)
== END 2017-11-30 13:01 | disposition home or self-care (01) ==
LOC: PHED 13:45 → PHICU 13:45 → PHEDA 20:36 → INTOOBSV 20:36 → PHICU 22:45
PROVIDERS: ADMIT Hospitalist; ATTEND Hospitalist

== ENCOUNTER 2017-12-03 15:46 | Observation (INO) ==
[2017-12-03] MEDS ORDERED: Morphine Inj 4 MG/ML Vial IV.PUSH ONE (16:09)
[2017-12-03] MEDS ORDERED: Sod Chloride 0.9% Inj 1,000 ML IV.SIG ONE (16:09)
[2017-12-03] MEDS ORDERED: MethylPREDNISolone Sod Succinate Inj 125 MG/2 ML Vial IV.PUSH STA (16:15)
[2017-12-03 16:46] LABS: Baso # (Auto) 0.3 th/mm3 (0.0-0.2); Eos # (Auto) 0.2 th/mm3 (0.0-0.4); Eos % (Auto) 1.9 % (0.0-4.0); Hematocrit 45.2 % (39.0-51.0); Hemoglobin 15.1 gm/dL (13.0-17.0); Lymph # (Auto) 3.8 th/mm3 (1.0-4.8); Lymph % (Auto) 48.2 % (9.0-44.0); Mean Corpuscular HGB Conc 33.5 % (32.0-36.0); Mean Corpuscular Hemoglobin 31.7 pg (27.0-34.0); Mean Corpuscular Volume 94.8 fL (80.0-100.0); Mean Platelet Volume 6.9 fL (7.0-11.0); Mono # (Auto) 0.8 th/mm3 (0.0-0.9); Mono % (Auto) 9.9 % (0.0-8.0); Neut # (Auto) 2.9 th/mm3 (1.8-7.7); Platelet Count 369 th/mm3 (150-450); Red Blood Count 4.77 mil/mm3 (4.50-5.90); Red Cell Distribution Width 11.8 % (11.6-17.2); White Blood Count 8.1 th/mm3 (4.0-11.0)
--- NOTE | 2017-12-03 16:50 | ED ---
HPI General Chief complaint: Abdominal Pain Stated complaint: Abd Pain X yest Time Seen by Provider: 12/03/17 15:56 Source: patient and family Mode of arrival: ambulatory Limitations: no limitations History of Present Illness HPI narrative: Patient is a 62-year-old male, with history of ulcerative colitis , who comes in complaining of abdominal pain. He was recently admitted for a possible ulcerative colitis flare with a sodium of 124 and discharged . He says he continues to have pain and just feel unwell. He complains of continued diarrhea, but says it has lessened. He has had nausea, but no vomiting. He says he called his program supervisor and was advised to come into the emergency department. He denies fever chills. He denies seeing any blood in his stool. He says the pain is similar to previous ulcerative colitis flares. Severity is moderate. Related Data Home Medications Medication Instructions Recorded Confirmed adalimumab [Humira] 40 mg SUB-Q WEEKLY 11/28/17 12/03/17 amlodipine 2.5 mg PO DAILY 11/28/17 12/03/17 cetirizine [Zyrtec] 10 mg PO HS 11/28/17 12/03/17 esomeprazole magnesium [Nexium 20 mg PO DAILY PRN 11/28/17 12/03/17 24HR] mesalamine [Lialda] 4.8 g PO DAILY 11/28/17 12/03/17 metoprolol succinate 25 mg PO BID 11/28/17 12/03/17 montelukast [Singulair] 10 mg PO AC DINNER 11/28/17 12/03/17 ondansetron HCl [Zofran] 4 mg PO Q6-8H PRN 11/28/17 12/03/17 budesonide [Uceris] 9 mg PO QAM MDD 9MG 11/29/17 12/03/17 Allergies Allergy/AdvReac Type Severity Reaction Status Date / Time diclofenac Allergy Severe Diarrhea Verified 12/03/17 16:35 etodolac Allergy Severe Diarrhea Verified 12/03/17 16:35 flurbiprofen Allergy Severe Diarrhea Verified 12/03/17 16:35 ibuprofen Allergy Severe Diarrhea Verified 12/03/17 16:35 indomethacin Allergy Severe Diarrhea Verified 12/03/17 16:35 ketoprofen Allergy Severe Diarrhea Verified 12/03/17 16:35 ketorolac Allergy Severe Diarrhea Verified 12/03/17 16:35 naproxen Allergy Severe Diarrhea Verified 12/03/17 16:35 oxaprozin Allergy Severe Diarrhea Verified 12/03/17 16:35 Sulfa (Sulfonamide Allergy Severe Diarrhea Verified 12/03/17 16:35 Antibiotics) ANTIBIOTICS Allergy Severe Abdominal Uncoded 11/28/17 14:23 Pain Review of Systems Except as stated in HPI: all other systems reviewed are negative Constitutional Denies chills and Denies fever(s) ENT Denies dizziness Cardiovascular Denies chest pain and Denies dyspnea Respiratory Denies dyspnea and Denies dyspnea on exertion Gastrointestinal Reports abdominal pain and Reports nausea Musculoskeletal Denies myalgias and Denies arthralgias Integumentary/Breasts Denies change in pigmentation and Denies lesions Neurologic Reports weakness PMFSH History History Provided By: Patient and Family Member Medical History Medical History GERD (gastroesophageal reflux disease) (Acute) Hypertension (Acute) Ulcerative colitis (Acute) Surgical History Surgical History Hx of cholecystectomy (Acute) Social History Social History Substance History: No History of Abuse Second Hand Smoke Exposure: No Smoking Status: Never smoker How Often Do You Have a Drink Containing Alcohol: Never Recent Travel in [facility] within the Last 8 Weeks: No Recent Out of Country Travel within the Last 8 Weeks: No Exam Narrative Exam Narrative: GENERAL: Awake and alert, in no acute distress. SKIN: Focused skin assessment warm/dry. No wounds or signs of infection. HEAD: Atraumatic. Normocephalic. EYES: Pupils equal and round. No scleral icterus. ENT: Mucous membranes pink and moist. NECK: Trachea midline. No JVD. CARDIOVASCULAR: Regular rate and rhythm. No murmur appreciated. RESPIRATORY: No accessory muscle use. Clear to auscultation. Breath sounds equal bilaterally. GASTROINTESTINAL: Abdomen soft, nondistended. Tender to palpation of the left side of the abdomen. No rebound or guarding. MUSCULOSKELETAL: No obvious deformities. No clubbing. No cyanosis. No edema. NEUROLOGICAL: Awake and alert. No obvious cranial nerve deficits. Motor grossly within normal limits. Normal speech. PSYCHIATRIC: Appropriate mood and affect; insight and judgment normal. Course Hospital Course: IV established, labs sent. Patient given IV fluids, morphine for pain. Reevaluation(s) Reevaluation #1: Patient reports feeling better, though he is still nauseous. Time: 17:37 Initial Documented Vital Signs Temperature 97.8 F 12/03/17 15:50 Pulse Rate 105 H 12/03/17 15:50 Respiratory Rate 16 12/03/17 15:50 Blood Pressure 138/84 12/03/17 15:50 Pulse Oximetry 100 12/03/17 15:50 Last Documented Vital Signs Temperature 97.8 F 12/03/17 15:50 Pulse Rate 78 12/03/17 16:58 Respiratory Rate 16 12/03/17 16:58 Blood Pressure 120/79 12/03/17 16:58 Pulse Oximetry 98 12/03/17 16:58 Medical Decision Making MDM Narrative Medical decision making narrative: Patient is a 62-year-old male who comes in complaining of abdominal pain, and not feeling well. Exam shows tenderness to palpation of the abdomen. IV established, labs sent. Labs concerning for hypokalemia of 2.3 and hyponatremia at 125. X-ray of the abdomen performed per Dr. Taylor's request, shows no acute abnormalities. I spoke with his program supervisor Dr. Taylor, who suggests Solu-Medrol at 60 mg. This was ordered. Cortisol level ordered as well. Due to electrolyte abnormalities, patient will be admitted for further management. Differential Diagnosis Differential Diagnosis: Dehydration versus ulcerative colitis flare versus electrolyte abnormality Medical Records Medical records reviewed: Yes I reviewed the patient's medical records. Lab Data Lab results reviewed: Yes I reviewed the patient's lab results. Result diagrams: 12/03/17 16:43 12/03/17 16:43 Lab Results 12/03/17 12/03/17 12/03/17 Range/Units 16:43 16:43 16:43 CBC w Diff Auto diff final WBC 8.1 (4.0-11.0) th/mm3 RBC 4.77 (4.50-5.90) mil/mm3 Hgb 15.1 (13.0-17.0) gm/dL Hct 45.2 (39.0-51.0) % MCV 94.8 (80.0-100.0) fL MCH 31.7 (27.0-34.0) pg MCHC 33.5 (32.0-36.0) % RDW 11.8 (11.6-17.2) % Plt Count 369 (150-450) th/mm3 MPV 6.9 L (7.0-11.0) fL Neut % (Auto) 36.0 (16.0-70.0) % Lymph % (Auto) 48.2 H (9.0-44.0) % [place] % (Auto) 9.9 H (0.0-8.0) % Eos % (Auto) 1.9 (0.0-4.0) % Baso % (Auto) 4.0 H (0.0-2.0) % Neut # (Auto) 2.9 (1.8-7.7) th/mm3 Lymph # (Auto) 3.8 (1.0-4.8) th/mm3 [place] # (Auto) 0.8 (0.0-0.9) th/mm3 Eos # (Auto) 0.2 (0.0-0.4) th/mm3 Baso # (Auto) 0.3 H (0.0-0.2) th/mm3 WBC Differential . Differential Comment . PT 11.2 (9.8-11.6) sec INR 1.1 Ratio APTT 26.8 (24.3-30.1) sec Sodium 125 L (136-145) meq/L Potassium 2.3 L* (3.5-5.1) meq/L Chloride 89 L (98-107) meq/L Carbon Dioxide 24.6 (21.0-32.0) meq/L Anion Gap 11 (5-15) meq/L BUN 8 (7-18) mg/dL Creatinine 0.71 (0.60-1.30) mg/dL Estimated GFR Greater than 89 (>89) mL/min Random Glucose 132 H (74-106) mg/dL Calcium 8.7 (8.5-10.1) mg/dL Total Bilirubin 0.9 (0.2-1.0) mg/dL AST 20 (15-37) U/L ALT 73 (12-78) U/L Alkaline Phosphatase 77 (45-117) U/L Total Protein 8.0 (6.4-8.2) g/dL Albumin 3.7 (3.4-5.0) g/dL Lipase 147 (73-393) U/L Imaging Data Radiologist's impression: Abdomen X-Ray 12/03/17 16:20 CONCLUSION: No evidence of obstruction. Discharge Plan Discharge Disposition Patient Disposition: 30 Still Patient Discharge Condition Condition: Stable Discharge Details Diagnosis: Hypokalemia, Acute hyponatremia, Ulcerative colitis Physicians Team ED Provider: Maru Moncada Primary Care Provider: Kyra Gardner Rxs /Orders / Referrals /Forms Prescriptions: No Action ondansetron HCl [Zofran] 4 mg Tablet 4 mg PO Q6-8H PRN (Reason: Nausea) RF: 0 amlodipine 2.5 mg Tablet 2.5 mg PO DAILY RF: 0 metoprolol succinate 25 mg Tablet Extended Release 24 Hr 25 mg PO BID RF: 0 esomeprazole magnesium [Nexium 24HR] 20 mg Capsule,Delayed Release(Dr/Ec) 20 mg PO DAILY PRN (Reason: Nausea) RF: 0 cetirizine [Zyrtec] 10 mg Tablet 10 mg PO HS RF: 0 montelukast [Singulair] 10 mg Tablet 10 mg PO AC DINNER RF: 0 adalimumab [Humira] 40 mg/0.8 mL Syringe Kit 40 mg SUB-Q WEEKLY RF: 0 mesalamine [Lialda] 1.2 gram Tablet,Delayed Release (Dr/Ec) 4.8 g PO DAILY RF: 0 budesonide [Uceris] 9 mg Tablet,Delayed And Ext.Release 9 mg PO QAM MDD 9MG RF: 0 Discharge Interventions Interventions: Vital Signs Last Done: 12/03/17 16:58 Status ED Status: With Doctor
[2017-12-03 16:58] LABS: Activated Partial Thrombo Time 26.8 sec (24.3-30.1); INR 1.1 Ratio; Prothrombin Time 11.2 sec (9.8-11.6)
[2017-12-03 17:05] LABS: Alanine Aminotransferase 73 U/L (12-78); Albumin 3.7 g/dL (3.4-5.0); Alkaline Phosphatase 77 U/L (45-117); Anion Gap 11 meq/L (5-15); Aspartate Aminotransferase 20 U/L (15-37); Blood Urea Nitrogen 8 mg/dL (7-18); Calcium 8.7 mg/dL (8.5-10.1); Carbon Dioxide 24.6 meq/L (21.0-32.0); Chloride 89 meq/L (98-107); Glomerular Filtration Rate Greater Than 89 mL/min (>89); Glucose,Random 132 mg/dL (74-106); Lipase 147 U/L (73-393); Sodium 125 meq/L (136-145)
[2017-12-03 17:06] LABS: Potassium 2.3 meq/L (3.5-5.1)
--- NOTE | 2017-12-03 17:17 | XR ---
EXAM DATE: 12/03/2017 4:59 PM EDT AGE/SEX: 62 years / Male INDICATIONS: Left abdomen pain, nausea CLINICAL DATA: This is the patient's initial encounter. Patient reports that signs and symptoms have been present for 2 weeks and indicates a pain score of 8/10. MEDICAL/SURGICAL HISTORY: . : Ulcerative colitis. . Cholecystectomy COMPARISON: [facility], CT ABDOMEN & PELVIS W CONTRAST, 11/28/2017. . FINDINGS: Supine and upright views of the abdomen were performed. The abdominal bowel gas pattern is normal. No air-fluid levels are seen. No abnormal masses, calcifications, or organomegaly is seen. The visualiz ed lower lungs are clear. No evidence of free intraperitoneal gas. The osseous structures are unremar kable. There are surgical clips in the right upper quadrant compatible with prior cholecystectomy. Th ere are calcifications in the pelvis consistent with phleboliths. CONCLUSION: No evidence of obstruction. Electronically signed by: Dillan Harp MD 12/03/2017 5:16 PM EDT
[2017-12-03] MEDS ORDERED: Sodium Chlor 0.9% Inj 500 ML IV.SIG ONE (17:28)
[2017-12-03] MEDS: Potassium Chlor 10 mEq Premix 10 MEQ/100 ML PIGGYBACK IV.SIG SCH ×3 (17:35→23:20)
[2017-12-03] MEDS ORDERED: Bisacodyl 10 MG Supp RECTAL PRN (18:13)
[2017-12-03 18:35] LABS: Bilirubin,Urine Negative (Negative); Clarity,Urine Clear (Clear); Color,Urine Straw (Yellw/Straw); Glucose,Urine (UA) Negative (Negative); Leukocyte Esterase,Urine Negative (Negative); Nitrite,Urine Negative (Negative); PH,Urine 7.5 (5.0-8.5); Specific Gravity,Urine Less/Equal 1.005 (1.002-1.035); Urobilinogen,Urine 0.2 mg/dL (Less than 2)
[2017-12-03 18:39] LABS: RBC,Urine 0-3 /hpf (0-3)
[2017-12-03] MEDS: Sod Chloride 0.9% Inj 1,000 ML IV.CONT SCH (19:22)
[2017-12-03] MEDS ORDERED: Pantoprazole Sodium 20 MG DR Tablet PO PRN (20:30)
[2017-12-03] MEDS: Potassium Chloride 25 MEQ Effervescent Tablet PO SCH (21:00)
[2017-12-03] MEDS: Temazepam 15 MG Capsule PO PRN (23:37)
[2017-12-04 05:08] LABS: Anion Gap 10 meq/L (5-15); Calcium 8.8 mg/dL (8.5-10.1); Carbon Dioxide 21.7 meq/L (21.0-32.0); Chloride 104 meq/L (98-107); Glucose,Random 138 mg/dL (74-106); Potassium 4.8 meq/L (3.5-5.1); Sodium 136 meq/L (136-145)
[2017-12-04 05:18] LABS: Blood Urea Nitrogen 10 mg/dL (7-18); Glomerular Filtration Rate Greater Than 89 mL/min (>89)
[2017-12-04] MEDS: Sod Chloride 0.9% Inj 1,000 ML IV.CONT SCH ×2 (06:26→16:35)
[2017-12-04] MEDS: amLODIPine 5 MG Tablet PO SCH (08:43)
[2017-12-04] MEDS: Potassium Chloride 25 MEQ Effervescent Tablet PO SCH (08:44)
[2017-12-04] MEDS ORDERED: BUDESONIDE 9 MG PO SCH (09:00)
[2017-12-04] MEDS ORDERED: MESALAMINE 4.8 GM PO SCH (09:00)
--- NOTE | 2017-12-04 10:34 | P.HPIM ---
History of Present Illness Primary Care Physician: Kyra Gardner MD Chief Complaint: Weakness History of Present Illness: This patient is a 62-year-old gentleman with chronic hyponatremia comes to the hospital with recurrence of the same. He had been on budesonide but this was recently discontinued. He was in the hospital recently with some dehydration and hyponatremia which seems to resolve intermittently. He was given some dose of Solu-Medrol. He was not sent home on steroids as he was on budesonide at home. Apparently his gastro neurologist discontinued the budesonide and he has come back to the hospital overnight with complaints of weakness and abdominal discomfort. He has some nausea without vomiting. Came to the emergency room was found to have a sodium of 125 as well as some hypokalemia. Cortisol was done in the emergency room however patient's recently been on steroids and is inaccurate results. Patient is euvolemic at this time and has serum and urine osmolarity which are low but nonspecific at this time. He will benefit from outpatient nephrology evaluation. Is recommended for further observation to periods abdominal discomfort is mild. - Diagnosis (1) Chronic hyponatremia (2) Ulcerative colitis (3) Hypokalemia Inpatient Certification: I certify that the inpatient services were ordered in accordance with Medicare regulations governing the order. This includes certification that hospital inpatient services are reasonable and necessary and in the case of services not specified as inpatient-only under 42 CFR 419.22(n), that they are appropriately provided as inpatient services in accordance to with the 2-midnight benchmark under 43 CFR 412.3(e) Review of Systems All other systems reviewed negative except as stated in HPI Constitutional: Reports anorexia PMFSH - History History Provided By: Patient - Medical History Medical History: Medical History (Last Updated 12/04/17 @ 10:30 by Yumi Cox MD) Chronic hyponatremia GERD (gastroesophageal reflux disease) Hypertension Ulcerative colitis - Surgical History Surgical History: Surgical History (Last Reviewed 12/04/17 @ 10:30 by Yumi Cox MD) Hx of cholecystectomy - Tobacco History Second Hand Smoke Exposure: No Tobacco Use In Past 30 Days: No Smoking Status: Never smoker - Alcohol History How Often Do You Have a Drink Containing Alcohol: Never - Substance Use History Substance History: No History of Abuse - Travel History Recent Travel in the [place] Within the Last 8 Weeks: No Recent Travel Out of the Country Within the Last 8 Weeks: No - Immunization History Tetanus Immunization: <5 Years Hx Influenza Vaccine This Season: Yes Medications and Allergies Active Medications: Active Medications Acetaminophen (Tylenol) 650 mg PO Q4H PRN PRN Reason: Temp > 100.4 Amlodipine Besylate (Norvasc) 2.5 mg PO DAILY [facility] Last Admin: 12/04/17 08:43 Dose: 2.5 mg Betamethasone Acet/Betameth SodPhos (Celestone Soluspan Inj) 3 mg IM ONCE ONE Stop: 12/04/17 10:20 Bisacodyl (Dulcolax Supp) 10 mg RECTAL DAILY PRN PRN Reason: SEVERE CONSITIPATION Cetirizine HCl (Zyrtec) 10 mg PO HS [facility] Last Admin: 12/03/17 21:20 Dose: Not Given Sodium Chloride (Ns Inj) 1,000 mls @ 100 mls/hr IV.CONT .Q10H [facility] Last Admin: 12/04/17 06:26 Dose: 100 mls/hr Lactulose (Lactulose Liq) 30 ml PO DAILY PRN PRN Reason: SEVERE CONSITIPATION Metoclopramide HCl (Reglan Inj) 5 mg IV.PUSH Q6HR PRN; Protocol PRN Reason: NAUSEA OR VOMITING Metoprolol Succinate (Toprol Xl) 25 mg PO BID [facility] Last Admin: 12/04/17 08:43 Dose: 25 mg Miscellaneous (Pill Splitter) 1 each OTHER UNSCH PRN PRN Reason: SEE LABEL COMMENTS Montelukast Sodium (Singulair) 10 mg PO AC DINNER [facility] Pantoprazole Sodium (Protonix) 20 mg PO DAILY PRN PRN Reason: NA Patient Own: ( Budesonide [Uceris] 9 Mg) 0 each PO DAILY [facility] Patient Own: ( Mesalamine [Lialda] 4.8 G) 0 each PO DAILY [facility] Potassium Bicarb/Potassium Chloride (K-Lyte Cl Eff) 25 meq PO BID [facility] Last Admin: 12/04/17 08:44 Dose: 25 meq Sennosides (Senokot) 17.2 mg PO Q12H PRN PRN Reason: Moderate Constipation Sodium Chloride (Ns Flush) 2 ml IV.FLUSH PRN PRN PRN Reason: FLUSH AFTER USING IV ACCESS Temazepam (Restoril) 15 mg PO HS PRN PRN Reason: INSOMNIA Last Admin: 12/03/17 23:37 Dose: 15 mg Allergies Allergy/AdvReac Type Severity Reaction Status Date / Time diclofenac Allergy Severe Diarrhea Verified 12/03/17 16:35 etodolac Allergy Severe Diarrhea Verified 12/03/17 16:35 flurbiprofen Allergy Severe Diarrhea Verified 12/03/17 16:35 ibuprofen Allergy Severe Diarrhea Verified 12/03/17 16:35 indomethacin Allergy Severe Diarrhea Verified 12/03/17 16:35 ketoprofen Allergy Severe Diarrhea Verified 12/03/17 16:35 ketorolac Allergy Severe Diarrhea Verified 12/03/17 16:35 naproxen Allergy Severe Diarrhea Verified 12/03/17 16:35 oxaprozin Allergy Severe Diarrhea Verified 12/03/17 16:35 Sulfa (Sulfonamide Allergy Severe Diarrhea Verified 12/03/17 16:35 Antibiotics) ANTIBIOTICS Allergy Severe Abdominal Uncoded 11/28/17 14:23 Pain Home Medications Medication Instructions Recorded Confirmed Type adalimumab [Humira] 40 mg SUB-Q WEEKLY 11/28/17 12/03/17 History amlodipine 2.5 mg PO DAILY 11/28/17 12/03/17 History cetirizine [Zyrtec] 10 mg PO HS 11/28/17 12/03/17 History esomeprazole magnesium [Nexium 20 mg PO DAILY PRN 11/28/17 12/03/17 History 24HR] mesalamine [Lialda] 4.8 g PO DAILY 11/28/17 12/03/17 History metoprolol succinate 25 mg PO BID 11/28/17 12/03/17 History montelukast [Singulair] 10 mg PO AC DINNER 11/28/17 12/03/17 History ondansetron HCl [Zofran] 4 mg PO Q6-8H PRN 11/28/17 12/03/17 History budesonide [Uceris] 9 mg PO QAM MDD 9MG 11/29/17 12/03/17 History Exam Vital signs: Vital Signs 12/03/17 15:50 12/03/17 16:15 12/03/17 16:58 Temperature 97.8 F Pulse Rate 105 H 78 Respiratory Rate 16 16 Blood Pressure 138/84 120/79 Pulse Oximetry 100 98 98 12/03/17 20:00 12/04/17 00:00 12/04/17 08:00 Temperature 98.2 F 98.1 F 97.2 F L Pulse Rate 109 H 90 87 Respiratory Rate 16 16 18 Blood Pressure 160/92 H 143/83 H 128/73 Pulse Oximetry 97 97 96 Intake & Output 12/03/17 12/04/17 12/04/17 18:59 06:59 18:59 Intake Total 2800 / 2800 Balance 2800 / 2800 Weight 65 kg 66.4 kg Intake: IV 2800 / 2800 NS Inj 1,000 ML @ 100 mls/hr IV 1000 / 1000 .CONT .Q10H [facility] Rx#:[id number] KCl 10 mEq Premix Inj 10 meq In 300 / 300 100 ml @ 100 mls/hr IV.SIG Q1H [facility] Rx#:[id number] NS Inj 1,000 ML @ Wide Open IV. 1000 / 1000 SIG BOLUS ONE Rx#:[id number] NS Inj 500 ML @ Wide Open IV. 500 / 500 SIG BOLUS ONE Rx#:[id number] Other: # Voids 3 Weight On Admission 66.4 kg Narrative: GENERAL: Patient calm resting and without complaints SKIN: Warm and dry. No rashes or ecchymotic injuries EYES: Pupils equal and round. No scleral icterus. No injection or drainage. ENT: External ear exam normal. No acute nasal bleeding or discharge. Mucous membranes pink and moist. CARDIOVASCULAR: Regular rate and rhythm. No murmurs gallops or rubs appreciated RESPIRATORY: Good air flow and effort without accessory muscle use. Clear to auscultation. Breath sounds equal bilaterally. GASTROINTESTINAL: Abdomen soft, non-tender, nondistended. Hepatic and splenic margins not palpable. MUSCULOSKELETAL: Extremities without clubbing, cyanosis, or edema. No obvious deformities. NEUROLOGICAL: Awake and alert. No obvious cranial nerve deficits. Motor grossly within normal limits. Five out of 5 muscle strength in the arms and legs. Normal speech. Results - Labs CBC & Chem 7: 12/03/17 16:43 12/04/17 04:40 Labs: Short CBC 12/03/17 Range/Units 16:43 WBC 8.1 (4.0-11.0) th/mm3 Hgb 15.1 (13.0-17.0) gm/dL Hct 45.2 (39.0-51.0) % Plt Count 369 (150-450) th/mm3 [facility] 07/15/18 07/16/18 16:43 04:40 Sodium 125 L 136 D Potassium 2.3 L* 4.8 D Chloride 89 L 104 D Carbon Dioxide 24.6 21.7 BUN 8 10 Creatinine 0.71 0.64 Calcium 8.7 8.8 Liver Function 12/03/17 Range/Units 16:43 Total Bilirubin 0.9 (0.2-1.0) mg/dL AST 20 (15-37) U/L ALT 73 (12-78) U/L Alkaline Phosphatase 77 (45-117) U/L Albumin 3.7 (3.4-5.0) g/dL Urine 12/03/17 Range/Units 18:23 Urine Color Straw (Yellw/Straw) Urine Clarity Clear (Clear) Urine pH 7.5 (5.0-8.5) Ur Specific [place] Less/equal 1.005 (1.002-1.035) Urine Protein Negative (Neg-Trace) mg/dL Urine Glucose (UA) Negative (Negative) mg/dL - Imaging Impressions Abdomen X-Ray 12/03/17 16:20 CONCLUSION: No evidence of obstruction. Caprini VTE Risk Assessment Caprini VTE Risk Assessment: No/Low Risk (score <= 1) Caprini Risk Assessment Model: Point Value = 1 Point Value = 2 Point Value = 3 Point Value = 5 Age 41-60 Minor surgery BMI > 25 kg/m2 Swollen legs Varicose veins or History of unexplained or recurrent spontaneous Oral contraceptives or hormone replacement Sepsis (< 1 month) Serious lung disease, including pneumonia (< 1 month) Abnormal pulmonary function Acute myocardial infarction Congestive heart failure (< 1 month) History of inflammatory bowel disease Medical patient at bed rest Age 61-74 Arthroscopic surgery Major open surgery (> 45 min) Laparoscopic surgery (> 45 min) Malignancy Confined to bed (> 72 hours) Immobilizing plaster cast Central venous access Age >= 75 History of VTE Family history of VTE Factor V Leiden Prothrombin [id number] Lupus anticoagulant Anticardiolipin antibodies Elevated serum homocysteine Heparin-induced thrombocytopenia Other congenital or acquired thrombophilia Stroke (< 1 month) Elective arthroplasty Hip, pelvis, or leg fracture Acute spinal cord injury (< 1 month) Prophylaxis Regimen: Total Risk Factor Score Risk Level Prophylaxis Regimen 0-1 Low Early ambulation 2 Moderate Order ONE of the following: *Sequential Compression Device (SCD) *Heparin 5000 units SQ BID 3-4 Higher Order ONE of the following medications: *Heparin 5000 units SQ TID *Enoxaparin/Lovenox 40 mg SQ daily (WT < 150 kg, CrCl > 30 mL/min) *Enoxaparin/Lovenox 30 mg SQ daily (WT < 150 kg, CrCl > 10-29 mL/min) *Enoxaparin/Lovenox 30 mg SQ BID (WT < 150 kg, CrCl > 30 mL/min) AND/OR *Sequential Compression Device (SCD) 5 or more Highest Order ONE of the following medications: *Heparin 5000 units SQ TID (Preferred with Epidurals) *Enoxaparin/Lovenox 40 mg SQ daily (WT < 150 kg, CrCl > 30 mL/min) *Enoxaparin/Lovenox 30 mg SQ daily (WT < 150 kg, CrCl > 10-29 mL/min) *Enoxaparin/Lovenox 30 mg SQ BID (WT < 150 kg, CrCl > 30 mL/min) AND *Sequential Compression Device (SCD) Assessment and Plan - Assessment (1) Chronic hyponatremia Code(s): E87.1 - Hypo-osmolality and hyponatremia Status: Acute Plan: Patient has chronic hyponatremia since 2016, he will benefit from outpatient appears to be volume depleted. Accurate due to concomitant steroids (2) Ulcerative colitis Code(s): K51.90 - Ulcerative colitis, unspecified, without complications Status: Chronic Plan: Continue with home medications, patient on Humira, add betamethasone (3) Hypokalemia Code(s): E87.6 - Hypokalemia Status: Acute Plan: Check mag, replaced and resolved - Plan Likely discharge in a.m. on oral steroids if electrolyte remains to H&P: Quality - VTE Deep Vein Thrombosis/Pulmonary Embolism Present on Admission: No (2) Ulcerative colitis Qualifiers: Ulcerative colitis location: unspecified ulcerative colitis location Digestive disease complication type: without complication Qualified Code(s): K51.90 - Ulcerative colitis, unspecified, without complications
[2017-12-04] MEDS ORDERED: Betamethasone Sod Phos/Acetate Inj 30 MG/5 ML Vial IM ONE (13:00)
[2017-12-04] MEDS ORDERED: Montelukast 10 MG Tablet PO SCH (16:00)
--- NOTE | 2017-12-04 18:22 | ECG ---
Date Performed: 12/03/2017 Time Performed: 18:00:19 PTAGE: 62 years EKG: Sinus rhythm POSSIBLE RIGHT VENTRICULAR CONDUCTION DELAY BORDERLINE ECG Compared to PREVIOUS TRACING , sinus rate is slower. PREVIOUS TRACIN09/07/2017 10.33 DOCTOR: Lenard Murphy Interpretating Date/Time 12/04/2017 18:20:53
[2017-12-04] MEDS: Acetaminophen 325 MG Tablet PO PRN (20:29)
[2017-12-04] MEDS: Temazepam 15 MG Capsule PO PRN (22:25)
[2017-12-05] MEDS: Sod Chloride 0.9% Inj 1,000 ML IV.CONT SCH (02:48)
[2017-12-05 06:10] LABS: Anion Gap 9 meq/L (5-15); Blood Urea Nitrogen 8 mg/dL (7-18); Calcium 8.5 mg/dL (8.5-10.1); Carbon Dioxide 24.3 meq/L (21.0-32.0); Chloride 103 meq/L (98-107); Glomerular Filtration Rate Greater Than 89 mL/min (>89); Glucose,Random 113 mg/dL (74-106); Potassium 3.7 meq/L (3.5-5.1); Sodium 136 meq/L (136-145)
[2017-12-05] MEDS: Acetaminophen 325 MG Tablet PO PRN (06:14)
[2017-12-05] MEDS: amLODIPine 5 MG Tablet PO SCH (09:06)
--- NOTE | 2017-12-05 09:11 | P.PNIM ---
Subjective Interval history: Patient seen and evaluated today in follow-up for hyponatremia which is resolved. Patient discharge instructions discussed with him and he is agreeable electrolytes corrected Physical Exam Vital signs: Vital Signs 12/04/17 12:00 12/04/17 15:32 12/04/17 21:47 Temperature 98.5 F 96.8 F L 96.2 F L Pulse Rate 88 78 88 Respiratory Rate 18 18 18 Blood Pressure 139/75 130/72 132/75 Pulse Oximetry 96 96 97 12/05/17 01:41 12/05/17 08:00 Temperature 96.1 F L 97.1 F L Pulse Rate 70 66 Respiratory Rate 18 16 Blood Pressure 130/78 131/78 Pulse Oximetry 97 99 Intake & Output 12/04/17 12/05/17 12/05/17 18:59 06:59 18:59 Intake Total 1840 / 1840 1200 / 1200 Output Total 450 / 450 Balance 1840 / 1840 750 / 750 Weight 66.4 kg Intake: IV 1000 / 1000 1000 / 1000 NS Inj 1,000 ML @ 100 mls/hr IV 1000 / 1000 1000 / 1000 .CONT .Q10H [facility] Rx#:[id number] Oral 840 / 840 200 / 200 Output: Urine 450 / 450 Other: # Voids 4 # Bowel Movements 1 Narrative: GENERAL: Patient calm resting and without complaints SKIN: Warm and dry. No rashes or ecchymotic injuries EYES: Pupils equal and round. No scleral icterus. No injection or drainage. ENT: External ear exam normal. No acute nasal bleeding or discharge. Mucous membranes pink and moist. CARDIOVASCULAR: Regular rate and rhythm. No murmurs gallops or rubs appreciated RESPIRATORY: Good air flow and effort without accessory muscle use. Clear to auscultation. Breath sounds equal bilaterally. GASTROINTESTINAL: Abdomen soft, non-tender, nondistended. Hepatic and splenic margins not palpable. MUSCULOSKELETAL: Extremities without clubbing, cyanosis, or edema. No obvious deformities. NEUROLOGICAL: Awake and alert. No obvious cranial nerve deficits. Motor grossly within normal limits. Five out of 5 muscle strength in the arms and legs. Normal speech. Results - Labs CBC & Chem 7: 12/03/17 16:43 12/05/17 05:33 Laboratory Results - last 24 hr 12/04/17 12/05/17 04:40 05:33 Sodium 136 Potassium 3.7 D Chloride 103 Carbon Dioxide 24.3 Anion Gap 9 BUN 8 Creatinine 0.56 L Estimated GFR Greater than 89 Random Glucose 113 H Calcium 8.5 Magnesium 2.4 Assessment and Plan - Assessment (1) Chronic hyponatremia Code(s): E87.1 - Hypo-osmolality and hyponatremia Status: Acute Plan: Patient has chronic hyponatremia since 2016, he will benefit from outpatient appears to be volume depleted. Renal patient follow-up as an Resolved (2) Ulcerative colitis Code(s): K51.90 - Ulcerative colitis, unspecified, without complications Status: Chronic Plan: Continue with home medications, patient on Humira, methylprednisolone (3) Hypokalemia Code(s): E87.6 - Hypokalemia Status: Acute Plan: Resolved - Plan Discharge home Activity unrestricted Diet regular (2) Ulcerative colitis Qualifiers: Ulcerative colitis location: unspecified ulcerative colitis location Digestive disease complication type: without complication Qualified Code(s): K51.90 - Ulcerative colitis, unspecified, without complications
== END 2017-12-05 12:41 | disposition home or self-care (01) ==
LOC: PHED 15:46 → PH3 15:46 → PHEDA 18:01 → INTOOBSV 18:01 → PH3 19:50
PROVIDERS: ADMIT Hospitalist; ATTEND Hospitalist

== ENCOUNTER 2017-12-13 16:47 | Observation (INO) ==
[2017-12-13] MEDS ORDERED: Sod Chloride 0.9% Inj 1,000 ML IV.SIG ONE (18:32)
--- NOTE | 2017-12-13 18:56 | ED ---
HPI General Chief Complaint: Recheck/Abnormal Lab/Rx Stated Complaint: Abnormal Labs Time Seen by Provider: 12/13/17 18:24 Source: patient and family Mode of arrival: ambulatory Limitations: no limitations History of Present Illness HPI narrative: Patient is a 62-year-old male, past medical history significant for ulcerative colitis on chronic steroids, who presents with complaint of generalized ill feeling and malaise. He states that last week he was admitted for hypokalemia that occurred "randomly" without having diarrhea. Over the last 2 days he has had watery diarrhea yet and was concerned that his potassium may be low again as he was feeling more weak with leg cramping. He denies fevers he denies pain different than his normal pain. MD complaint: abnormal lab Initial visit (ago): day(s) Associated symptoms: malaise Related Data Home Medications Medication Instructions Recorded Confirmed adalimumab [Humira] 40 mg SUB-Q WEEKLY 11/28/17 12/13/17 amlodipine 2.5 mg PO DAILY 11/28/17 12/13/17 cetirizine [Zyrtec] 10 mg PO HS 11/28/17 12/13/17 esomeprazole magnesium [Nexium 20 mg PO DAILY PRN 11/28/17 12/13/17 24HR] mesalamine [Lialda] 4.8 g PO DAILY 11/28/17 12/13/17 metoprolol succinate 25 mg PO BID 11/28/17 12/13/17 montelukast [Singulair] 10 mg PO AC DINNER 11/28/17 12/13/17 ondansetron HCl [Zofran] 4 mg PO Q6-8H PRN 11/28/17 12/13/17 Allergies Allergy/AdvReac Type Severity Reaction Status Date / Time diclofenac Allergy Severe Diarrhea Verified 12/13/17 16:50 etodolac Allergy Severe Diarrhea Verified 12/13/17 16:50 flurbiprofen Allergy Severe Diarrhea Verified 12/13/17 16:50 ibuprofen Allergy Severe Diarrhea Verified 12/13/17 16:50 indomethacin Allergy Severe Diarrhea Verified 12/13/17 16:50 ketoprofen Allergy Severe Diarrhea Verified 12/13/17 16:50 ketorolac Allergy Severe Diarrhea Verified 12/13/17 16:50 naproxen Allergy Severe Diarrhea Verified 12/13/17 16:50 oxaprozin Allergy Severe Diarrhea Verified 12/13/17 16:50 Sulfa (Sulfonamide Allergy Severe Diarrhea Verified 12/13/17 16:50 Antibiotics) ANTIBIOTICS Allergy Severe Abdominal Uncoded 11/28/17 14:23 Pain Review of Systems Except as stated in HPI: all other systems reviewed are negative Constitutional Denies fever(s) Eyes Denies blurry vision ENT Denies nasal congestion Cardiovascular Denies chest pain Respiratory Denies dyspnea Gastrointestinal Reports bloating, Reports diarrhea, Reports loose stools and Denies vomiting Genitourinary Denies flank pain Musculoskeletal Denies back pain and Reports muscle weakness Integumentary/Breasts Denies rash Neurologic Denies headache(s) Psychiatric Denies suicidal ideation Endocrine Reports fatigue [facility] Medical History Medical History Chronic hyponatremia (Acute) GERD (gastroesophageal reflux disease) (Acute) Hypertension (Acute) Ulcerative colitis (Acute) Surgical History Surgical History Hx of cholecystectomy (Acute) Family History Family History Father History of emphysema Mother History of uterine cancer Social History Social History Substance History: No History of Abuse Second Hand Smoke Exposure: No Smoking Status: Never smoker How Often Do You Have a Drink Containing Alcohol: Never Recent Travel in [facility] within the Last 8 Weeks: No Recent Out of Country Travel within the Last 8 Weeks: No Immunization History Tetanus Immunization: <5 Years Hx Influenza Vaccine This Season: Yes Exam Narrative Exam Narrative: GENERAL: Chronically ill-appearing male in no acute distress SKIN: Focused skin assessment warm/dry. HEAD: Atraumatic. Normocephalic. EYES: Pupils equal and round. No scleral icterus. No injection or drainage. ENT: No nasal bleeding or discharge. Mucous membranes pink and dry NECK: Trachea midline. No JVD. CARDIOVASCULAR: Regular rate and rhythm. No murmur appreciated. RESPIRATORY: No accessory muscle use. Clear to auscultation. Breath sounds equal bilaterally. GASTROINTESTINAL: Abdomen soft, non-tender, slight distention. Hepatic and splenic margins not palpable. MUSCULOSKELETAL: No obvious deformities. No clubbing. No cyanosis. No edema. NEUROLOGICAL: Awake and alert. No obvious cranial nerve deficits. Motor grossly within normal limits. Normal speech. PSYCHIATRIC: Appropriate mood and affect; insight and judgment normal. Course Hospital Course: On patient arrival he was placed on the monitor and IV was established. IV Reglan was given to help alleviate his nausea and a fluid bolus was also ordered. Labs and x-ray of the abdomen were ordered. Reevaluation(s) Reevaluation #1: Patient states that the Reglan did help his nausea and he is feeling better at this time. Time: 19:42 Initial Documented Vital Signs Temperature 97.8 F 12/13/17 16:50 Pulse Rate 90 12/13/17 16:50 Respiratory Rate 18 12/13/17 16:50 Blood Pressure 174/84 H 12/13/17 16:50 Pulse Oximetry 99 12/13/17 16:50 Last Documented Vital Signs Temperature 97.2 F L 12/14/17 12:00 Pulse Rate 78 12/14/17 12:00 Respiratory Rate 21 12/14/17 12:00 Blood Pressure 128/76 12/14/17 12:00 Pulse Oximetry 96 12/14/17 12:00 Sign Out Sign Out Data: Patient Sign Out occurred on 12/13/17 at 20:06. Patient's care was discussed, and care was transferred from Bri Hawthorne MD to Mariusz Cosby MD. Sign Out Comment: Patient is a 62-year-old male with history significant for ulcerative colitis, who presents with complaint of malaise and diarrhea. Vital signs are stable. X-ray and labs pending at time of checkout, with the spoke per reevaluation and results. Last updated by Bri Hawthorne MD at 12/13/17 19:45 Post-Handoff Eval: Patient was signed out by Dr. Hawthorne, labs show hyperosmolar hyponatremia, patient received 1 bag of IV fluids, will be admitted for hyponatremia and hypokalemia. Differential include SIADH and polydipsia. Patient says he drinks 3 bottles of 32 oz of Gatorade daily. Medical Decision Making MDM Narrative Medical decision making narrative: Patient is a 62-year-old male who presents with complaint of generalized malaise after 2 days of diarrhea without fevers. He is afebrile with stable vital signs on arrival. X-ray and labs have been ordered and are pending at time of checkout. Differential Diagnosis Differential Diagnosis: Differential diagnosis includes but is not limited to ulcerative colitis, Clostridium difficile diarrhea, toxic megacolon, electrolyte abnormality. Medical Records Medical records reviewed: Yes I reviewed the patient's medical records. Lab Data Result diagrams: 12/14/17 05:35 12/14/17 12:30 Lab Results 12/13/17 12/13/17 12/13/17 Range/Units 18:40 18:40 21:00 CBC w Diff Slide review pending WBC 9.7 (4.0-11.0) th/mm3 RBC 5.01 (4.50-5.90) mil/mm3 Hgb 16.4 (13.0-17.0) gm/dL Hct 45.4 (39.0-51.0) % MCV 90.6 (80.0-100.0) fL MCH 32.7 (27.0-34.0) pg MCHC 36.0 (32.0-36.0) % RDW 12.5 (11.6-17.2) % Plt Count 309 (150-450) th/mm3 MPV 8.6 (7.0-11.0) fL Neut % (Auto) 58.3 (16.0-70.0) % Lymph % (Auto) 29.0 (9.0-44.0) % [place] % (Auto) 9.7 H (0.0-8.0) % Eos % (Auto) 0.5 (0.0-4.0) % Baso % (Auto) 2.5 H (0.0-2.0) % Neut # (Auto) 5.8 (1.8-7.7) th/mm3 Lymph # (Auto) 2.8 (1.0-4.8) th/mm3 [place] # (Auto) 0.9 (0.0-0.9) th/mm3 Eos # (Auto) 0.0 (0.0-0.4) th/mm3 Baso # (Auto) 0.2 (0.0-0.2) th/mm3 WBC Differential . Diff Scan Auto diff confirmed Differential Comment . Platelet Estimate Normal (Normal) Platelet Morphology Normal (Normal) RBC Morphology Normal (Normal) Sodium 119 L* (136-145) meq/L Potassium 3.4 L (3.5-5.1) meq/L Chloride 87 L (98-107) meq/L Carbon Dioxide 17.1 L (21.0-32.0) meq/L Anion Gap 15 (5-15) meq/L BUN 8 (7-18) mg/dL Creatinine 0.79 (0.60-1.30) mg/dL Estimated GFR Greater than 89 (>89) mL/min Random Glucose 115 H (74-106) mg/dL Calcium 9.3 (8.5-10.1) mg/dL Magnesium 1.9 (1.5-2.5) mg/dL Ur Specific [place] (1.002-1.035) Urine Osmolality (300-1300) mosm/kg Ur Random Sodium 55 meq/L 12/13/17 12/13/17 12/14/17 Range/Units 21:00 21:00 00:01 CBC w Diff WBC (4.0-11.0) th/mm3 RBC (4.50-5.90) mil/mm3 Hgb (13.0-17.0) gm/dL Hct (39.0-51.0) % MCV (80.0-100.0) fL MCH (27.0-34.0) pg MCHC (32.0-36.0) % RDW (11.6-17.2) % Plt Count (150-450) th/mm3 MPV (7.0-11.0) fL Neut % (Auto) (16.0-70.0) % Lymph % (Auto) (9.0-44.0) % [place] % (Auto) (0.0-8.0) % Eos % (Auto) (0.0-4.0) % Baso % (Auto) (0.0-2.0) % Neut # (Auto) (1.8-7.7) th/mm3 Lymph # (Auto) (1.0-4.8) th/mm3 [place] # (Auto) (0.0-0.9) th/mm3 Eos # (Auto) (0.0-0.4) th/mm3 Baso # (Auto) (0.0-0.2) th/mm3 WBC Differential Diff Scan Differential Comment Platelet Estimate (Normal) Platelet Morphology (Normal) RBC Morphology (Normal) Sodium 126 L (136-145) meq/L Potassium (3.5-5.1) meq/L Chloride (98-107) meq/L Carbon Dioxide (21.0-32.0) meq/L Anion Gap (5-15) meq/L BUN (7-18) mg/dL Creatinine (0.60-1.30) mg/dL Estimated GFR (>89) mL/min Random Glucose (74-106) mg/dL Calcium (8.5-10.1) mg/dL Magnesium (1.5-2.5) mg/dL Ur Specific [place] 1.003 (1.002-1.035) Urine Osmolality 149 L (300-1300) mosm/kg Ur Random Sodium meq/L 12/14/17 12/14/17 12/14/17 Range/Units 05:35 05:35 12:30 CBC w Diff Auto diff final WBC 8.1 (4.0-11.0) th/mm3 RBC 4.34 L (4.50-5.90) mil/mm3 Hgb 14.0 D (13.0-17.0) gm/dL Hct 39.9 (39.0-51.0) % MCV 91.9 (80.0-100.0) fL MCH 32.2 (27.0-34.0) pg MCHC 35.0 (32.0-36.0) % RDW 12.6 (11.6-17.2) % Plt Count 297 (150-450) th/mm3 MPV 8.1 (7.0-11.0) fL Neut % (Auto) 37.8 (16.0-70.0) % Lymph % (Auto) 49.8 H (9.0-44.0) % [place] % (Auto) 10.5 H (0.0-8.0) % Eos % (Auto) 1.3 (0.0-4.0) % Baso % (Auto) 0.6 (0.0-2.0) % Neut # (Auto) 3.1 (1.8-7.7) th/mm3 Lymph # (Auto) 4.1 (1.0-4.8) th/mm3 [place] # (Auto) 0.8 (0.0-0.9) th/mm3 Eos # (Auto) 0.1 (0.0-0.4) th/mm3 Baso # (Auto) 0.0 (0.0-0.2) th/mm3 WBC Differential . Diff Scan Differential Comment . Platelet Estimate (Normal) Platelet Morphology (Normal) RBC Morphology (Normal) Sodium 131 L 130 L (136-145) meq/L Potassium 3.9 (3.5-5.1) meq/L Chloride 101 D (98-107) meq/L Carbon Dioxide 20.4 L (21.0-32.0) meq/L Anion Gap 10 (5-15) meq/L BUN 8 (7-18) mg/dL Creatinine 0.47 L (0.60-1.30) mg/dL Estimated GFR Greater than 89 (>89) mL/min Random Glucose 81 (74-106) mg/dL Calcium 8.2 L D (8.5-10.1) mg/dL Magnesium (1.5-2.5) mg/dL Ur Specific [place] (1.002-1.035) Urine Osmolality (300-1300) mosm/kg Ur Random Sodium meq/L Imaging Data Radiologist's impression: Abdomen X-Ray 12/13/17 18:32 CONCLUSION: Discharge Plan Discharge Disposition Patient Disposition: 30 Still Patient Discharge Condition Condition: Stable Discharge Order Discharge Orders: Discharge Order (Routine); Ordered 12/14/17 Ordered By: Yariel Vo Discharge Details Anticipated Discharge Date: 12/14/17 Diagnosis: Ulcerative colitis Physicians Team ED Provider: Mariusz Cosby Primary Care Provider: Kyra Gardner Attending Provider: Yumi Cox ED Status: Left Department Discharge Information Discharge Date/Time: 12/13/17 22:49
[2017-12-13 19:38] LABS: Anion Gap 15 meq/L (5-15); Blood Urea Nitrogen 8 mg/dL (7-18); Calcium 9.3 mg/dL (8.5-10.1); Carbon Dioxide 17.1 meq/L (21.0-32.0); Chloride 87 meq/L (98-107); Glomerular Filtration Rate Greater Than 89 mL/min (>89); Glucose,Random 115 mg/dL (74-106); Magnesium 1.9 mg/dL (1.5-2.5); Potassium 3.4 meq/L (3.5-5.1)
[2017-12-13 19:41] LABS: Baso # (Auto) 0.2 th/mm3 (0.0-0.2); Baso % (Auto) 2.5 % (0.0-2.0); Eos % (Auto) 0.5 % (0.0-4.0); Hematocrit 45.4 % (39.0-51.0); Hemoglobin 16.4 gm/dL (13.0-17.0); Lymph # (Auto) 2.8 th/mm3 (1.0-4.8); Mean Corpuscular Hemoglobin 32.7 pg (27.0-34.0); Mean Corpuscular Volume 90.6 fL (80.0-100.0); Mean Platelet Volume 8.6 fL (7.0-11.0); Mono # (Auto) 0.9 th/mm3 (0.0-0.9); Mono % (Auto) 9.7 % (0.0-8.0); Neut # (Auto) 5.8 th/mm3 (1.8-7.7); Neut % (Auto) 58.3 % (16.0-70.0); Platelet Count 309 th/mm3 (150-450); Red Blood Count 5.01 mil/mm3 (4.50-5.90); Red Cell Distribution Width 12.5 % (11.6-17.2); White Blood Count 9.7 th/mm3 (4.0-11.0)
[2017-12-13 19:49] LABS: Sodium 119 meq/L (136-145)
--- NOTE | 2017-12-13 19:58 | XR ---
EXAM DATE: 12/13/2017 7:06 PM EDT AGE/SEX: 62 years / Male INDICATIONS: Abdominal pain, nausea, and vomiting. CLINICAL DATA: This is the patient's initial encounter. Patient reports that signs and symptoms have been present for 1 month and indicates a pain score of 7/10. MEDICAL/SURGICAL HISTORY: None. Cholecystectomy. COMPARISON: [facility], ABDOMEN 2V FLAT & UPRIGHT, 12/03/2017. [facility], CT ABDOMEN & PELVIS W CONTRAST, 11/19. . FINDINGS: Supine and upright views of the abdomen were performed. The abdominal bowel gas pattern is normal. No air-fluid levels are seen. No abnormal masses, calcifications, or organomegaly is seen. Clips are se en in the right upper quadrant from prior cholecystectomy. The visualized lower lungs are clear. No e vidence of free intraperitoneal gas. The osseous structures are unremarkable. CONCLUSION: Negative abdominal series. Electronically signed by: Reno Kaufman MD 12/13/2017 7:57 PM EDT
[2017-12-13] MEDS ORDERED: MethylPREDNISolone Sod Succinate Inj 125 MG/2 ML Vial IV.PUSH STA (20:11)
[2017-12-13 20:13] LABS: Platelet Estimate Normal (Normal); Platelet Morphology Normal (Normal); RBC Morphology Normal (Normal)
[2017-12-13] MEDS: Sod Chloride 0.9% Inj 1,000 ML IV.CONT SCH (21:39)
[2017-12-13] MEDS ORDERED: Pantoprazole Sodium 20 MG DR Tablet PO PRN (23:30)
[2017-12-13] MEDS: Acetaminophen 325 MG Tablet PO PRN (23:32)
[2017-12-14] MEDS: amLODIPine 5 MG Tablet PO SCH ×2 (05:24→09:15)
[2017-12-14] MEDS: Sod Chloride 0.9% Inj 1,000 ML IV.CONT SCH (07:20)
[2017-12-14 07:25] LABS: Baso % (Auto) 0.6 % (0.0-2.0); Eos # (Auto) 0.1 th/mm3 (0.0-0.4); Eos % (Auto) 1.3 % (0.0-4.0); Hematocrit 39.9 % (39.0-51.0); Lymph # (Auto) 4.1 th/mm3 (1.0-4.8); Lymph % (Auto) 49.8 % (9.0-44.0); Mean Corpuscular Hemoglobin 32.2 pg (27.0-34.0); Mean Corpuscular Volume 91.9 fL (80.0-100.0); Mean Platelet Volume 8.1 fL (7.0-11.0); Mono # (Auto) 0.8 th/mm3 (0.0-0.9); Mono % (Auto) 10.5 % (0.0-8.0); Neut # (Auto) 3.1 th/mm3 (1.8-7.7); Neut % (Auto) 37.8 % (16.0-70.0); Platelet Count 297 th/mm3 (150-450); Red Blood Count 4.34 mil/mm3 (4.50-5.90); Red Cell Distribution Width 12.6 % (11.6-17.2); White Blood Count 8.1 th/mm3 (4.0-11.0)
[2017-12-14] MEDS: Acetaminophen 325 MG Tablet PO PRN (07:27)
[2017-12-14 07:36] LABS: Anion Gap 10 meq/L (5-15); Blood Urea Nitrogen 8 mg/dL (7-18); Calcium 8.2 mg/dL (8.5-10.1); Carbon Dioxide 20.4 meq/L (21.0-32.0); Chloride 101 meq/L (98-107); Glucose,Random 81 mg/dL (74-106); Potassium 3.9 meq/L (3.5-5.1); Sodium 131 meq/L (136-145)
[2017-12-14 07:54] LABS: Glomerular Filtration Rate Greater Than 89 mL/min (>89)
[2017-12-14] MEDS ORDERED: MESALAMINE PO SCH (09:00)
--- NOTE | 2017-12-14 13:36 | P.HP ---
History of Present Illness Primary Care Physician: Kyra Gardner MD Chief Complaint: Generalized weakness, felt like his electrolytes are abnormal History of Present Illness: 62-year-old male with known history of hypertension, ulcerative colitis, gastroesophageal reflux, chronic hyponatremia who presented to the emergency department because of feeling generally weak, he felt as if his electrolytes are abnormal so he came to the hospital for evaluation. ER physician did workup and found the patient to have significant hyponatremia, hypokalemia. Patient does have history of hyponatremia which upon review of medical records appears to be hypoosmolar hyponatremia. Likely from polydipsia. Patient states that he still drinking at least 3-4; 32 ounce Gatorade a day. Patient states that he did have follow-up with his primary medical doctor on Monday, however is confusing because patient was supposed to have outpatient nephrology evaluation. However it was indicated to him that he may need to have a endocrine evaluation instead. Patient did have a low sodium at that time and the patient was placed on salt tablets for management. Patient indicates that he has followed up with his GI physician Dr. Taylor on Monday as well. There does not appear to be any change in his medications or treatment. It was indicated that he should start back on his previous medications, however they are going to wait until his sodium situation is under control. Upon seeing the patient this morning he is resting in bed comfortably. He denies any new complaints. Repeat laboratory studies indicate that his sodium level has significantly improved and is stable. Patient indicates that on top of all the fluids he drinks. He states that he does have intermittent watery diarrhea due to his ulcerative colitis. The patient feels as if he is experiencing a exacerbation at this time. He is having pain in his left lower abdomen. He has not had any loose bowel movements in over the last 24 hours. Denies any melena or hematochezia. The patient believes that he may need a endocrinology evaluation. It was discussed with the patient that that is an outpatient workup and that he should get his primary medical doctor make the appropriate referrals. Patient was counseled significantly on polydipsia, fluid restriction of 1.5 L daily in order to manage his hyponatremia. - Diagnosis (1) Hyponatremia Review of Systems All other systems reviewed negative except as stated in HPI Gastrointestinal: Reports abdominal pain, Reports change in bowel habits, Reports loose stools Musculoskeletal: Reports muscle cramps PMFSH - History History Provided By: Patient, Medical Record - Medical History Medical History: Medical History (Last Reviewed 12/14/17 @ 08:47 by ARIE Alaniz) Chronic hyponatremia (Acute) GERD (gastroesophageal reflux disease) (Acute) Hypertension (Acute) Ulcerative colitis (Acute) - Surgical History Surgical History: Surgical History (Last Reviewed 12/14/17 @ 08:47 by ARIE Alaniz) Hx of cholecystectomy (Acute) - Family History Family History: Family History (Last Updated 12/14/17 @ 08:38 by ARIE Alaniz) Father History of emphysema Mother History of uterine cancer - Tobacco History Second Hand Smoke Exposure: No Tobacco Use In Past 30 Days: No Smoking Status: Never smoker - Alcohol History How Often Do You Have a Drink Containing Alcohol: Never - Substance Use History Substance History: No History of Abuse - Travel History Recent Travel in the [place] Within the Last 8 Weeks: No Recent Travel Out of the Country Within the Last 8 Weeks: No - Immunization History Tetanus Immunization: <5 Years Hx Influenza Vaccine This Season: Yes Medications and Allergies Active Medications: Active Medications Acetaminophen (Tylenol) 650 mg PO Q4H PRN PRN Reason: Temp > 100.4 Last Admin: 12/14/17 07:27 Dose: 650 mg Amlodipine Besylate (Norvasc) 2.5 mg PO DAILY [facility] Last Admin: 12/14/17 09:15 Dose: 2.5 mg Cetirizine HCl (Zyrtec) 10 mg PO HS [facility] Last Admin: 12/13/17 23:30 Dose: 10 mg Sodium Chloride (Ns Inj) 1,000 mls @ 100 mls/hr IV.CONT .Q10H [facility] Last Admin: 12/14/17 07:20 Dose: 100 mls/hr Metoprolol Succinate (Toprol Xl) 25 mg PO BID [facility] Last Admin: 12/14/17 09:14 Dose: 25 mg Montelukast Sodium (Singulair) 10 mg PO AC DINNER [facility] Ondansetron HCl (Zofran Inj) 4 mg IV.PUSH Q6H PRN PRN Reason: NAUSEA OR VOMITING Last Admin: 12/14/17 07:28 Dose: 4 mg Pantoprazole Sodium (Protonix) 20 mg PO DAILY PRN PRN Reason: NAUSEA Pt Own: Lialda 4.8gm 0 each PO DAILY [facility] Sodium Chloride (Ns Flush) 2 ml IV.FLUSH PRN PRN PRN Reason: FLUSH AFTER USING IV ACCESS Allergies Allergy/AdvReac Type Severity Reaction Status Date / Time diclofenac Allergy Severe Diarrhea Verified 12/13/17 16:50 etodolac Allergy Severe Diarrhea Verified 12/13/17 16:50 flurbiprofen Allergy Severe Diarrhea Verified 12/13/17 16:50 ibuprofen Allergy Severe Diarrhea Verified 12/13/17 16:50 indomethacin Allergy Severe Diarrhea Verified 12/13/17 16:50 ketoprofen Allergy Severe Diarrhea Verified 12/13/17 16:50 ketorolac Allergy Severe Diarrhea Verified 12/13/17 16:50 naproxen Allergy Severe Diarrhea Verified 12/13/17 16:50 oxaprozin Allergy Severe Diarrhea Verified 12/13/17 16:50 Sulfa (Sulfonamide Allergy Severe Diarrhea Verified 12/13/17 16:50 Antibiotics) ANTIBIOTICS Allergy Severe Abdominal Uncoded 11/28/17 14:23 Pain Home Medications Medication Instructions Recorded Confirmed Type adalimumab [Humira] 40 mg SUB-Q WEEKLY 11/28/17 12/13/17 History amlodipine 2.5 mg PO DAILY 11/28/17 12/13/17 History cetirizine [Zyrtec] 10 mg PO HS 11/28/17 12/13/17 History esomeprazole magnesium [Nexium 20 mg PO DAILY PRN 11/28/17 12/13/17 History 24HR] mesalamine [Lialda] 4.8 g PO DAILY 11/28/17 12/13/17 History metoprolol succinate 25 mg PO BID 11/28/17 12/13/17 History montelukast [Singulair] 10 mg PO AC DINNER 11/28/17 12/13/17 History ondansetron HCl [Zofran] 4 mg PO Q6-8H PRN 11/28/17 12/13/17 History Exam Vital signs: Vital Signs 12/13/17 16:50 12/13/17 18:09 12/13/17 18:33 Temperature 97.8 F Pulse Rate 90 88 Respiratory Rate 18 16 Blood Pressure 174/84 H 164/95 H Pulse Oximetry 99 100 99 12/13/17 20:59 12/13/17 21:02 12/13/17 22:50 Temperature Pulse Rate 95 H 87 Respiratory Rate 16 16 Blood Pressure 177/89 H 158/85 H Pulse Oximetry 95 12/13/17 22:55 12/14/17 00:30 12/14/17 04:00 Temperature 98.6 F 99 F Pulse Rate 95 H 68 Respiratory Rate 16 20 16 Blood Pressure 180/80 H 119/72 Pulse Oximetry 95 96 12/14/17 08:02 12/14/17 12:00 Temperature 97.4 F L 97.2 F L Pulse Rate 66 78 Respiratory Rate 20 21 Blood Pressure 120/73 128/76 Pulse Oximetry 97 96 Intake & Output 12/13/17 12/14/17 12/14/17 18:59 06:59 18:59 Intake Total 1000 / 1000 1000 / 1000 Balance 1000 / 1000 1000 / 1000 Weight 65.8 kg 65 kg Intake: IV 1000 / 1000 1000 / 1000 NS Inj 1,000 ML @ 100 mls/hr IV 1000 / 1000 .CONT .Q10H [facility] Rx#:[id number] NS Inj 1,000 ML @ Wide Open IV. 1000 / 1000 SIG BOLUS ONE Rx#:[id number] Oral 0 / 0 Other: Date of Last Bowel Movement 12/13/17 Weight On Admission 65 kg Narrative: GENERAL: Well-developed, well-nourished, in no acute distress. alert and orientated HEENT: Head is normocephalic without any lesions or masses noted. Facial features are symmetric. Eyes: Pupils equal round reactive to light. Extraocular muscles are intact. Conjunctivae were clear. Oropharyngeal: Pharynx without any erythema edema. Tongue is midline without deviation. Buccal mucosa is moist without any masses or lesions NECK: Supple without any masses. Trachea midline no deviation. No JVD, no bruits are appreciated CARDIAC: Regular rhythm, regular rate. S1/S2 are heard. No murmurs gallops or rubs. LUNGS: Clear to auscultation bilaterally. No wheeze, rhonchi or rales. No use of accessory muscles on inspiration or expiration. ABDOMEN: Soft, nontender. Nondistended. Bowel sounds heard in all 4 quadrants. No organomegaly or masses. Negative rebound, negative guarding EXTREMITIES: No edema, pulses are equal bilaterally. No cyanosis or clubbing NEUROLOGY: Mood and affect appear appropriate. Cranial nerves II through XII grossly intact. Muscle strength 5/5 in upper and lower extremities bilaterally. Deep tendon reflexes are 2+ in upper and lower extremities bilaterally. Results - Labs CBC & Chem 7: 12/14/17 05:35 12/14/17 12:30 Labs: Laboratory Results - last 24 hr 12/13/17 12/13/17 12/13/17 18:40 18:40 21:00 CBC w Diff Slide review pending WBC 9.7 RBC 5.01 Hgb 16.4 Hct 45.4 MCV 90.6 MCH 32.7 MCHC 36.0 RDW 12.5 Plt Count 309 MPV 8.6 Neut % (Auto) 58.3 Lymph % (Auto) 29.0 [place] % (Auto) 9.7 H Eos % (Auto) 0.5 Baso % (Auto) 2.5 H Neut # (Auto) 5.8 Lymph # (Auto) 2.8 [place] # (Auto) 0.9 Eos # (Auto) 0.0 Baso # (Auto) 0.2 WBC Differential . Diff Scan Auto diff confirmed Differential Comment . Platelet Estimate Normal Platelet Morphology Normal RBC Morphology Normal Sodium 119 L* Potassium 3.4 L Chloride 87 L Carbon Dioxide 17.1 L Anion Gap 15 BUN 8 Creatinine 0.79 Estimated GFR Greater than 89 Random Glucose 115 H Calcium 9.3 Magnesium 1.9 Ur Specific [place] Urine Osmolality Ur Random Sodium 55 12/13/17 12/13/17 12/14/17 21:00 21:00 00:01 CBC w Diff WBC RBC Hgb Hct MCV MCH MCHC RDW Plt Count MPV Neut % (Auto) Lymph % (Auto) [place] % (Auto) Eos % (Auto) Baso % (Auto) Neut # (Auto) Lymph # (Auto) [place] # (Auto) Eos # (Auto) Baso # (Auto) WBC Differential Diff Scan Differential Comment Platelet Estimate Platelet Morphology RBC Morphology Sodium 126 L Potassium Chloride Carbon Dioxide Anion Gap BUN Creatinine Estimated GFR Random Glucose Calcium Magnesium Ur Specific [place] 1.003 Urine Osmolality 149 L Ur Random Sodium 12/14/17 12/14/17 12/14/17 05:35 05:35 12:30 CBC w Diff Auto diff final WBC 8.1 RBC 4.34 L Hgb 14.0 D Hct 39.9 MCV 91.9 MCH 32.2 MCHC 35.0 RDW 12.6 Plt Count 297 MPV 8.1 Neut % (Auto) 37.8 Lymph % (Auto) 49.8 H [place] % (Auto) 10.5 H Eos % (Auto) 1.3 Baso % (Auto) 0.6 Neut # (Auto) 3.1 Lymph # (Auto) 4.1 [place] # (Auto) 0.8 Eos # (Auto) 0.1 Baso # (Auto) 0.0 WBC Differential . Diff Scan Differential Comment . Platelet Estimate Platelet Morphology RBC Morphology Sodium 131 L 130 L Potassium 3.9 Chloride 101 D Carbon Dioxide 20.4 L Anion Gap 10 BUN 8 Creatinine 0.47 L Estimated GFR Greater than 89 Random Glucose 81 Calcium 8.2 L D Magnesium Ur Specific [place] Urine Osmolality Ur Random Sodium - Imaging Impressions Abdomen X-Ray 12/13/17 18:32 CONCLUSION: Caprini VTE Risk Assessment Caprini VTE Risk Assessment: Moderate/High Risk (score >= 2) Caprini Risk Assessment Model: Point Value = 1 Point Value = 2 Point Value = 3 Point Value = 5 Age 41-60 Minor surgery BMI > 25 kg/m2 Swollen legs Varicose veins or History of unexplained or recurrent spontaneous Oral contraceptives or hormone replacement Sepsis (< 1 month) Serious lung disease, including pneumonia (< 1 month) Abnormal pulmonary function Acute myocardial infarction Congestive heart failure (< 1 month) History of inflammatory bowel disease Medical patient at bed rest Age 61-74 Arthroscopic surgery Major open surgery (> 45 min) Laparoscopic surgery (> 45 min) Malignancy Confined to bed (> 72 hours) Immobilizing plaster cast Central venous access Age >= 75 History of VTE Family history of VTE Factor V Leiden Prothrombin [id number] Lupus anticoagulant Anticardiolipin antibodies Elevated serum homocysteine Heparin-induced thrombocytopenia Other congenital or acquired thrombophilia Stroke (< 1 month) Elective arthroplasty Hip, pelvis, or leg fracture Acute spinal cord injury (< 1 month) Prophylaxis Regimen: Total Risk Factor Score Risk Level Prophylaxis Regimen 0-1 Low Early ambulation 2 Moderate Order ONE of the following: *Sequential Compression Device (SCD) *Heparin 5000 units SQ BID 3-4 Higher Order ONE of the following medications: *Heparin 5000 units SQ TID *Enoxaparin/Lovenox 40 mg SQ daily (WT < 150 kg, CrCl > 30 mL/min) *Enoxaparin/Lovenox 30 mg SQ daily (WT < 150 kg, CrCl > 10-29 mL/min) *Enoxaparin/Lovenox 30 mg SQ BID (WT < 150 kg, CrCl > 30 mL/min) AND/OR *Sequential Compression Device (SCD) 5 or more Highest Order ONE of the following medications: *Heparin 5000 units SQ TID (Preferred with Epidurals) *Enoxaparin/Lovenox 40 mg SQ daily (WT < 150 kg, CrCl > 30 mL/min) *Enoxaparin/Lovenox 30 mg SQ daily (WT < 150 kg, CrCl > 10-29 mL/min) *Enoxaparin/Lovenox 30 mg SQ BID (WT < 150 kg, CrCl > 30 mL/min) AND *Sequential Compression Device (SCD) Assessment and Plan - Assessment (1) Hyponatremia Code(s): E87.1 - Hypo-osmolality and hyponatremia Status: Acute - Plan Hypo-osmolar hyponatremia -Likely secondary to polydipsia. Patient does drink at least 3-4; 32 ounce Gatorade's daily -Patient has had recurrent admissions for same condition due to polydipsia and noncompliance with fluid restriction. Patient was counseled extensively on treatment and fluid restriction. -Sodium is much improved at this time -Patient should follow-up with outpatient guide dog mobility instructor for further management Ulcerative colitis -Clinically and objectively no obvious exacerbation at this time -Patient has received Solu-Medrol 60 mg IV 1 by ER physician -Patient just underwent outpatient steroid treatment within the last week for possible exacerbation -Discussed with patient's supervisor shuttle preparation, Dr. Taylor who indicated that patient is not in ulcerative colitis exacerbation at this time. He just finished a steroid Dosepak. Dr. Taylor does not recommend any further steroids at this time until he could perform colonoscopy/endoscopy in order to take biopsies to prove that he has ulcerative colitis with exacerbation. Hypokalemia -Continue monitor and replete as needed Hypertension -Home medications were continued DVT prevention -Sequential compression devices Discharge Planning: Discharge home in stable condition Activity: Ad amandeep. Diet: Healthy heart diet Medication per medication reconciliation Follow-up with primary medical doctor in 1 week
[2017-12-14] MEDS ORDERED: Montelukast 10 MG Tablet PO SCH (16:00)
== END 2017-12-14 15:40 | disposition home or self-care (01) ==
LOC: PHED 16:47 → PHEDA 16:47 → PH3 16:47
PROVIDERS: ADMIT Hospitalist; ATTEND Hospitalist
DX: I10 Essential (primary) hypertension; K21.9 Gastro-esophageal reflux disease without esophagitis; R63.1 Polydipsia; K51.90 Ulcerative colitis, unspecified, without complications; E87.1 Hypo-osmolality and hyponatremia; E87.6 Hypokalemia